=== PATIENT | male | born 1940 | race Caucasian/White ===

== ENCOUNTER 2018-12-10 11:01 | Emergency (ER) | payer MEDICARE, SELFPAY | END 2018-12-10 18:02 | disposition home or self-care (01) | PROVIDERS: Emergency Provider Emergency Medicine; PCP Family Medicine; Visit Provider Emergency Medicine | DX: R42 Dizziness and giddiness (principal); D75.1 Secondary polycythemia; I25.10 Atherosclerotic heart disease of native coronary artery without angina pectoris; G47.30 Sleep apnea, unspecified; Z87.442 Personal history of urinary calculi; I45.10 Unspecified right bundle-branch block; R94.31 Abnormal electrocardiogram [ECG] [EKG] | CPT/HCPCS: 99284; 96361; 96374; 85025; 80162; 36415; 84484; 80053; 81001; 83880; 93005; 70450; J1100; J7120 ×2; A9270 ==

== ENCOUNTER 2019-07-15 08:08 | Emergency (ER) | payer MEDICARE, SELFPAY ==
--- NOTE | ~2019-07-15 | XR_ITS ---
XR hand RT min 3V DATE: 07/15/2019 08:53 INDICATION: Injury to fourth digit TECHNIQUE: 3 views of right hand COMPARISON: None FINDINGS: There is bandage material around the fourth digit. There is evidence of a soft tissue lacer ation. No radiopaque soft tissue foreign body is detected. No fracture, dislocation, periosteal react ion or bone destruction. IMPRESSION: Soft tissue laceration of fourth digit. No fracture, dislocation or radiopaque foreign frantz dy Reviewed, dictated and finalized at location A. IMPRESSION: Soft tissue laceration of fourth digit. No fracture, dislocation or radiopaque foreign body
[2019-07-15 08:10] VITALS: BP 145/59; PULSE 74; RESP 16; TEMP 36.6; O2SAT 99
--- NOTE | 2019-07-15 09:00 | ED.WOUNDLAC ---
HPI - Wound/Laceration General Chief Complaint: Wound/Laceration Stated Complaint: Right Ring Finger Laceration Time Seen by Provider: 07/15/19 08:28 History of Present Illness HPI narrative: Patient is a 79-year-old male who presents the ER after suffering an injury to his right fourth digit. Patient was driving a tractor when a tree branch hit him in the head and he reached his hand up which caused him to split open his finger. Mainly over the radial aspect of the digit goes from the proximal phalanx to the distal phalanx. Range of motion as well as sensation are intact. He cleaned the area prior to arrival. Unknown last tetanus shot. Related Data Home Medications Medication Instructions Recorded Confirmed aspirin 81 mg tablet,delayed 81 mg PO DAILY 12/18/18 release calcium carbonate 500 mg (1,250 1 tablet PO DAILY 12/18/18 mg)-vitamin D3 400 unit tablet Allergies Allergy/AdvReac Type Severity Reaction Status Date / Time No Known Allergies Allergy Unknown Verified 07/15/19 08:33 Review of Systems Review of Systems: All systems reviewed & are unremarkable except as noted in HPI and below Integumentary/Breasts: Comments: Laceration to the right fourth digit. [facility] Past Medical History Medical History (Updated 07/15/19 @ 12:15 by El Perez MD) Coronary artery disease Kidney stones PAT (paroxysmal atrial tachycardia) Surgical History Surgical History (Updated 07/15/19 @ 09:03 by El Perez MD) History of cholecystectomy History of tonsillectomy Family History Family History (Updated 11/09/16 @ 18:30 by DOCTOR UNKNOWN) Sibling Family history of malignant neoplasm Mother Family history of malignant neoplasm Father Family history of lung cancer Other Hypertension Social History Social History Smoking status: Never smoker Alcohol intake: never Exam Narrative: Exam Narrative: GENERAL: Well-appearing, well-nourished, and in no acute distress. HEAD: Normocephalic, atraumatic. HEART: Regular rate and rhythm. Normal peripheral pulses. EXTREMITIES: Focused exam of the right hand reveals lacerations to the fourth digit. There is a palmar laceration that is 7.5 cm in total length that extends from the proximal phalanx up to the distal phalanx. Through and through injury that exits on the volar aspect through a 1.5 cm laceration. Sharp and soft touch intact in the affected digit and when isolating the DIP/PIP/MCP patient has normal strength with flexion extension. There is a 3 cm flap laceration over the volar aspect of the hand is superficial. SKIN: Warm, dry, no rash. Lacerations as noted above. NEURO: No focal deficits. Alert and oriented x3. PSYCH: Normal mood and affect. Course Course Emergency Course: Patient resting comfortably. Informed of x-ray results. ANITA García has sutured the wound. Patient has been updated on his tetanus immunization. Organic debris irrigated from the wounds and copious irrigation was used. Patient will be started on oral antibiotics and has been educated on infection risk and return precautions. Vital Signs Vital signs: Vital Signs Temperature 98 F 07/15/19 08:10 Pulse Rate 74 07/15/19 08:10 Respiratory Rate 16 07/15/19 08:10 Blood Pressure 145/59 H 07/15/19 08:10 Pulse Oximetry 99 07/15/19 08:10 Temperature 98 F 07/15/19 08:10 Pulse Rate 62 07/15/19 10:40 Respiratory Rate 16 07/15/19 10:40 Blood Pressure 141/76 H 07/15/19 10:40 Pulse Oximetry 98 07/15/19 10:40 Procedures Laceration Laceration 1: Date: 07/15/19 Time: 12:00 Site: other (plamar 4th digit right) Size (cm): 7.5 Description: irregular and contaminated (copiously irrigated and free of debris prior to suturing) Depth: [id number] Local Anesthetic: lidocaine 1% Pre-repair: wound explored, irrigated extensiv
[2019-07-15] MEDS: TETANUS,DIPHTHERIA,AC PERTUSSIS ADULT (0.5 ML) BOOSTRIX IM (09:03)
[2019-07-15 10:40] VITALS: BP 141/76; PULSE 62; RESP 16; O2SAT 98
[2019-07-15 12:45] VITALS: BP 150/80; PULSE 62; RESP 16; O2SAT 96
== END 2019-07-15 12:45 | disposition home or self-care (01) ==
PROVIDERS: Emergency Provider Emergency Medicine; PCP Family Medicine
DX: S61.214A Laceration without foreign body of right ring finger without damage to nail, initial encounter (principal); S61.411A Laceration without foreign body of right hand, initial encounter; I25.10 Atherosclerotic heart disease of native coronary artery without angina pectoris; Z87.442 Personal history of urinary calculi; Z23 Encounter for immunization; Z79.82 Long term (current) use of aspirin; W22.8XXA Striking against or struck by other objects, initial encounter
CPT/HCPCS: 12004; 73130; 90471; 90715; 99283

== ENCOUNTER 2019-10-11 09:40 | Inpatient (IN) | payer MEDICARE, SELFPAY ==
[2019-10-11] VITALS (7 sets, daily range): BP systolic 99–156; BP diastolic 56–75; PULSE 86–111; RESP 16–18; TEMP 36.8–39.5; O2SAT 89–98; BMI 30.7
--- NOTE | ~2019-10-11 | XR_ITS ---
EXAMINATION: XR chest 1V portable DATE: 10/11/2019 11:42 INDICATION: Shortness of breath TECHNIQUE: frontal view of the chest was obtained. COMPARISON: Chest radiograph dated 08/09/2013 FINDINGS: Pulmonary vascular congestion with increased interstitial pattern in the lower lung zones suggesting mild pulmonary edema. Calcified nodule in the left upper lung consistent with old granulomatous disea se. No pleural effusion or pneumothorax. Heart size is normal. Cholecystectomy clips in right upper q uadrant. IMPRESSION: 1. Increased interstitial pattern in the bilateral lower lung zones without focal consolidation sugge stive of mild pulmonary edema. Differential includes bronchitis or pneumonia. Reviewed, dictated and finalized at location A. IMPRESSION: 1. Increased interstitial pattern in the bilateral lower lung zones without foc al consolidation suggestive of mild pulmonary edema. Differential includes bron chitis or pneumonia.
--- NOTE | ~2019-10-11 | US_ITS ---
EXAMINATION: US venous doppler [facility] DATE: 10/13/2019 09:31 INDICATION: Left lower limb pain and swelling TECHNIQUE: Grayscale ultrasound images without and with compression and Doppler ultrasound images of the bilateral lower extremity veins were obtained. COMPARISON: None. FINDINGS: The visualized portions of right common femoral vein, profunda (deep) femoral vein, femoral vein, pop liteal vein, posterior tibial veins, peroneal veins, gastrocnemius vein and greater saphenous vein ou tflow are patent. The visualized portions of left common femoral vein, profunda femoral vein, femoral vein, popliteal v ein, posterior tibial veins, peroneal veins, gastrocnemius vein and greater saphenous vein outflow ar e patent. IMPRESSION: 1. No deep venous thrombosis in either lower limb. Reviewed, dictated and finalized at location A.
--- NOTE | ~2019-10-11 | CT_ITS ---
EXAMINATION: CT abdomen pelvis w con DATE: 10/11/2019 11:08 INDICATION: Fever. Nausea and vomiting. TECHNIQUE: Computed tomography (CT) of the abdomen and pelvis was performed with 100 mL Omnipaque 350 intravenous contrast. Automated exposure control and iterative reconstruction technique were employe d. The dose-length product was 665.05 mGy-cm. COMPARISON: CT abdomen and pelvis 03/02/2007 FINDINGS: The visualized portions of the lung bases demonstrate mild atelectasis. No pleural effusion . The heart size is normal. There are coronary artery calcifications. No pericardial effusion. There is a small sliding hiatal hernia. There are cysts in the liver measuring up to 15 mm. There are hutton es of cholecystectomy. The spleen, pancreas, and adrenal glands are normal. There are cysts in the ki dneys measuring up to 19 mm on the left. There is mild diffuse bladder wall thickening, likely second manny to chronic outlet obstruction from the severely enlarged prostate. There is a 16 mm stone in the bladder. There is mild bilateral hydroureter. There are no dilated loops of bowel. The appendix is no rmal. There are no pathologically enlarged lymph nodes. There is no free intraperitoneal fluid. There is moderate lumbar spondylosis. There are bridging endplate osteophytes at multiple levels in the th oracic spine, consistent with diffuse idiopathic skeletal hyperostosis (DISH). IMPRESSION: 1. Small sliding hiatal hernia. 2. Bladder stone. 3. Mild diffuse bladder wall thickening, likely secondary to chronic outlet obstruction from the annamaria rely enlarged prostate. 4. Mild bilateral hydroureter. Reviewed, dictated and finalized at location B. IMPRESSION: 1. Small sliding hiatal hernia. 2. Bladder stone. 3. Mild diffuse bladder wall thickening, likely secondary to chronic outlet obs truction from the severely enlarged prostate. 4. Mild bilateral hydroureter.
--- NOTE | 2019-10-11 10:02 | ED.FEVER ---
HPI - Fever General Chief Complaint: Fever Stated Complaint: fever, n/v Time Seen by Provider: 10/11/19 09:56 Source: RN notes reviewed History of Present Illness HPI Narrative: Patient presents emergency department from home for fever. Patient states symptoms began approximately 730 this morning. He states he developed a low-grade fever that was followed by several episodes of nausea and vomiting. Patient states he does note some mild abdominal cramping at this time. States he took 2 Tylenol this morning shortly after the fever began but believes he threw them up. He denies having any symptoms prior to 730 this morning. States he felt fine last night. He denies any sore throat rhinorrhea cough chest pain shortness of breath or any other symptoms Related Data Home Medications Medication Instructions Recorded Confirmed aspirin 81 mg tablet,delayed 81 mg PO DAILY 12/18/18 09/17/19 release calcium carbonate 500 mg (1,250 1 tablet PO DAILY 12/18/18 09/17/19 mg)-vitamin D3 400 unit tablet Allergies Allergy/AdvReac Type Severity Reaction Status Date / Time No Known Allergies Allergy Unknown Verified 10/11/19 09:49 Review of Systems Review of Systems: Narrative: Gen.: Reports fever ENT: Denies congestion Respiratory: Denies shortness of breath or cough CV: Denies chest pain or palpitations GI: See HPI denies burning, urgency, frequency or hematuria Musculoskeletal: Denies back pain or muscle pain Neuro: Denies numbness, tingling, weakness or focal weakness Skin: Denies rash Except as documented, all other systems reviewed and negative [facility] Past Medical History Medical History Coronary artery disease Kidney stones PAT (paroxysmal atrial tachycardia) UTI (urinary tract infection) Social History Social History Smoking status: Never smoker Alcohol intake: current Substance use: never Substance use type: does not use Gender identity (if verbalized by the patient): Male Exam Narrative: Exam Narrative: APPEARANCE: No acute distress, nontoxic, resting in bed HEENT: Normocephalic, atraumatic, OMM RESPIRATORY: No respiratory distress, clear to auscultation bilaterally with no rhonchi wheezing or rales CARDIOVASCULAR: RRR s murmur ABDOMINAL: Soft, nondistended, diffusely tender to palpation, no rebound or guarding MUSCULOSKELETAl: Moves all extremities. No clubbing, cyanosis or edema. NEURO: Awake and alert. Following commands, speech normal, no focal deficits SKIN:: Warm, dry. Normal Color PSYCHIATRIC: Normal affect/mood Course Course Emergency Course: Patient noted to have mild hypoxia on pulse ox he denies having any coughing or shortness of breath. Of note the patient's fever did increase as well the patient had taken Tylenol at 7:30 AM this morning questionably vomited but will give Toradol at this time as I do not know how much Tylenol the patient actually did ingest Discussed with Dr. Yu presentation work-up he agrees with admission at this time Discussed with patient and family results of workup and diagnosis. Discussed need for admission. Patient and family understand and agree to current treatment plan Vital Signs Vital signs: Vital Signs Temperature 100.2 F H 10/11/19 09:47 Pulse Rate 102 H 10/11/19 09:47 Respiratory Rate 18 10/11/19 09:47 Blood Pressure 153/75 H 10/11/19 09:47 Pulse Oximetry 94 10/11/19 09:47 Temperature 103.1 F H 10/11/19 11:23 Pulse Rate 106 H 10/11/19 12:20 Respiratory Rate 18 10/11/19 12:20 Blood Pressure 156/73 H 10/11/19 12:20 Pulse Oximetry 93 10/11/19 12:20 MDM - Fever Lab Data Result diagrams: 10/11/19 10:16 10/11/19 10:16 Labs: Lab Results 10/11/19 10/11/19 10/11/19 Range/Units 10:16 10:16 10:16 WBC 12.4 H (4.5-10.0) K/mm3 RBC 5.86 (4.6-6.20) M/mm3 Hgb 1
[2019-10-11 10:37] LABS: Basophils Percent Auto 0.2 % (0.2-1.2); Eosinophils Percent Auto 0.2 % (0-4.4); Hematocrit 53.7 % (42.0-52.0); Hemoglobin 18.6 g/dL (14.0-18.0); Immature Granulocyte Absolute 0.06 K/mm3 (0.00-0.031); Immature Granulocyte Percent A 0.5 % (0-0.5); Lymphocytes Absolute Auto 0.25 K/mm3 (0.9-3.2); Mean Corpuscular HGB Conc 34.6 g/dl (32-36); Mean Corpuscular Hemoglobin 31.7 pg (26-34); Mean Corpuscular Volume 91.6 fl (80-100); Mean Platelet Volume 9.7 fl (7.4-10.4); Monocytes Absolute Auto 0.3 K/mm3 (0.1-0.6); Monocytes Percent Auto 2.2 % (2.6-8.5); Neutrophils Absolute Auto 11.8 K/mm3 (1.3-6.7); Neutrophils Percent Auto 94.9 % (45.5-73.1); Platelet Count Result 154 k/mm3 (150-375); Red Blood Count 5.86 M/mm3 (4.6-6.20); Red Cell Distribution Width 13.2 % (11.5-14.5); White Blood Count 12.4 K/mm3 (4.5-10.0)
[2019-10-11] MEDS: SODIUM CHLORIDE 0.9% IV 1,000 ML 999 ML IV CONT (10:40)
[2019-10-11 10:42] LABS: Add Urine Microscopic? YES; Appearance Urine Cloudy (Clear); Bacteria Urine 2+ /hpf; Bilirubin Urine Negative (Negative); Blood Urine Negative (Negative); Color Urine Yellow (Yellow); Glucose Urine UA Negative (Negative); Ketones Urine Negative (Negative); Leukocyte Esterase Ur 2+ LEU/UL (Negative); Mucus Urine Few /lpf; Nitrate Urine Positive (Negative); Protein Urine 2+ mg/dL (Negative); Squamous Epithelial Cell Urine Few /hpf (Few); WBC Clumps Urine Present /HPF; WBC Urine >75 /hpf
[2019-10-11 10:44] LABS: INR 1.1; Prothrombin Time 13.4 Seconds (11.1-14.7)
[2019-10-11 10:45] LABS: Partial Thromboplastin Time 27.4 SECONDS (22.3-36.8)
[2019-10-11 10:47] LABS: Alanine Aminotransferase 26 U/L (4-50); Albumin Level 4.3 g/dL (3.5-5.1); Alkaline Phosphatase 57 U/L (38-126); Anion Gap 7 mmol/L (8-16); Aspartate Amino Transferase 28 U/L (17-59); Bilirubin,Total 0.8 mg/dL (0.2-1.3); Blood Urea Nitrogen 17 mg/dL (9-20); Calcium 8.9 mg/dL (8.4-10.2); Carbon Dioxide 27 mmol/L (22-30); Chloride 100 mmol/L (98-107); Estimated CRCL calculation 65 ml/min; Estimated Glomerular Filt Rate > 60; Glucose 100 mg/dL (75-110); Lipase 45 U/L (23-300); Potassium 4.2 mmol/L (3.4-5.0); Sodium 134 mmol/L (137-145)
[2019-10-11 10:48] LABS: Lactic Acid Reflex 1.9 mmol/L (0.7-2.1)
[2019-10-11] MEDS: KETOROLAC 15 MG/ML VIAL (*BKC) IV PUSH (11:36)
--- NOTE | 2019-10-11 12:40 | PC.NURSE ---
This patient, Blue Kelley, was admitted to Medical Room 348-01. Patient/family oriented to hospital policies and general routines including ID bracelet, bed and alarms, visiting hours, pain management, procedures, bathroom and other care routines, personal items, smoking policy, room service/diet, and visiting hours. Valuables list has been completed. Information on how to activate the Rapid Response Team has been discussed. Patient/Family are encouraged to report perceived risks to care and to ask questions if they do not understand what they are told or what they should do.
[2019-10-11] MEDS: SODIUM CHLORIDE 0.9% IV 1,000 ML 100 ML IV CONT ×2 (12:51→22:02)
--- NOTE | 2019-10-11 16:27 | PM.IMHP ---
H&P: HPI History of Present Illness Date/Time: 10/11/19 16:27 Chief complaint: Sepsis/UTI Narrative: Blue Kelley is a 79 year old male Who has a history of UTIs and enlarged prostate. He sees urology here for his prostate and Urology needs. He sees Dr. Javier. the patient stated that he had a lower back pain this morning and felt that maybe he just slept wrong. He had a low-grade fever followed with nausea and vomiting. He had some abdominal cramping 2 he took some Tylenol shortly after his fever began but then he threw it up. His symptoms started about 730 this morning. The patient has not been around anybody that he is aware of the as COVID. He stated his son and his 2 kids had COVID but he the patient was not around his son and the 2 grandchildren. He has not been around any sick contacts. He does have any urinary symptoms other than a keep back and achy joints. He has fever and chills.The chest x-ray was read by radiology as increased interstitial pattern in the bilateral lower lung zones without consolidation suggestive of mild pulmonary edema. Differential includes bronchitis or pneumonia. Patient was found to have a UTI and was started on Rocephin. CT of the abdomen was read as small sliding hiatal hernia. Bladder stones. Mild diffuse bladder wall thickening, likely secondary to chronic outlet obstruction from the severely enlarged prostate. Bilateral hydro ureter mild. Date of service is 10/05/2019 [facility] Past Medical History Medical History Coronary artery disease Kidney stones PAT (paroxysmal atrial tachycardia) UTI (urinary tract infection) Social History Social History Smoking status: Never smoker Alcohol intake: former Substance use: never Substance use type: does not use Gender identity (if verbalized by the patient): Male Spiritual care concerns: No Meds Home Medications and Allergies Home Medications Medication Instructions Recorded Confirmed Type aspirin 81 mg tablet,delayed 81 mg PO DAILY 12/18/18 10/11/19 History release calcium carbonate 500 mg (1,250 1 tablet PO DAILY 12/18/18 10/11/19 History mg)-vitamin D3 400 unit tablet flecainide 100 mg tablet 100 mg PO Q12H #60 tablet 01/31/19 10/11/19 Rx testosterone cypionate 200 mg/mL 300 mg IM .bi weekly #10 ml 08/30/19 10/11/19 Rx intramuscular oil finasteride 5 mg tablet 5 mg PO DAILY #90 tablet 09/26/19 10/11/19 Rx Allergies Allergy/AdvReac Type Severity Reaction Status Date / Time No Known Allergies Allergy Unknown Verified 10/11/19 09:49 Vital Signs Vital Signs - 24 hr 10/11/19 09:47 10/11/19 11:23 10/11/19 12:20 Temperature 37.9 C H 39.5 C H Pulse Rate 102 H 104 H 106 H Respiratory Rate 18 18 18 Blood Pressure 153/75 H 156/73 H 156/73 H Pulse Oximetry 94 89 L 93 10/11/19 12:56 10/11/19 14:19 Temperature 37.6 C H 36.8 C Pulse Rate 111 H Respiratory Rate 16 Blood Pressure 99/64 L 113/57 L Pulse Oximetry 96 H&P: Results Labs Labs: Short CBC 10/11/19 Range/Units 10:16 WBC 12.4 H (4.5-10.0) K/mm3 Hgb 18.6 H (14.0-18.0) g/dL Hct 53.7 H (42.0-52.0) % Plt Count 154 (150-375) k/mm3 BMP 10/11/19 10:16 Sodium 134 L Potassium 4.2 Chloride 100 Carbon Dioxide 27 BUN 17 Creatinine 1.00 Glucose 100 Calcium 8.9 Liver Function 10/11/19 Range/Units 10:16 Total Bilirubin 0.8 (0.2-1.3) mg/dL AST 28 (17-59) U/L ALT 26 (4-50) U/L Alkaline Phosphatase 57 (38-126) U/L Albumin 4.3 (3.5-5.1) g/dL Urine 10/11/19 Range/Units 10:16 Urine Color Yellow (Yellow) Urine Appearance Cloudy H (Clear) Urine pH 8.0 (5.0-9.0) Ur Specific Maddock 1.020 (1.001-1.035) Urine Protein 2+ H (Negative) mg/dL Urine Glucose (UA) Negative (Negative) mg/dL
--- NOTE | 2019-10-11 16:37 | PM.IMHP ---
H&P: HPI History of Present Illness Date/Time: 10/11/19 16:37 Chief complaint: Sepsis/UTI Narrative: Narrative: Blue Kelley is a 79 year old male Who has a history of UTIs and enlarged prostate. He sees urology here for his prostate and Urology needs. He sees Dr. Javier. the patient stated that he had a lower back pain this morning and felt that maybe he just slept wrong. He had a low-grade fever followed with nausea and vomiting. He had some abdominal cramping 2 he took some Tylenol shortly after his fever began but then he threw it up. His symptoms started about 730 this morning. The patient has not been around anybody that he is aware of the as COVID. He stated his son and his 2 kids had COVID but he the patient was not around his son and the 2 grandchildren. He has not been around any sick contacts. He does have any urinary symptoms other than a keep back and achy joints. He has fever and chills.The chest x-ray was read by radiology as increased interstitial pattern in the bilateral lower lung zones without consolidation suggestive of mild pulmonary edema. Differential includes bronchitis or pneumonia. Patient was found to have a UTI and was started on Rocephin. CT of the abdomen was read as small sliding hiatal hernia. Bladder stones. Mild diffuse bladder wall thickening, likely secondary to chronic outlet obstruction from the severely enlarged prostate. Bilateral hydro ureter mild. Date of service is 10/05/2019 Review of Systems Review of Systems: All systems reviewed & are unremarkable except as noted in HPI and below Constitutional: Constitutional: Reports as per HPI and Reports no additional constitutional complaints Eyes: Eyes: Reports as per HPI and Reports no additional eye complaints ENT: Reports system reviewed and no additional complaints, except as documented and Reports Normal hearing present Cardiovascular: Cardiovascular: Reports no additional cardiovascular complaints Respiratory: Respiratory: Reports no additional respiratory complaints and Reports no additional respiratory complaints Gastrointestinal: Gastrointestinal: Reports as per HPI and Reports no additional gastrointestinal complaints Musculoskeletal: Musculoskeletal: Reports no additional musculoskeletal complaints Integumentary/Breasts: Skin/Breast: Reports system reviewed and no additional complaints, except as docu and Reports as per HPI Neurologic: Reports system reviewed and no additional complaints, except as documented, Reports as per HPI and Reports Normal hearing present Psychiatric: Psychiatric: Reports no additional psychiatric complaints and Reports as per HPI Endocrine: Endocrine: Reports no additional endocrine complaints Hematologic/Lymphatic: Hematologic/Lymphatic: Reports no additional hematologic/lymphatic complaints Allergic/Immunologic: Allergic/Immunologic: Reports no additional allergic/immunologic complaints [facility] Past Medical History Medical History (Updated 10/11/19 @ 16:40 by Emelina Velasquez NP) BPH (benign prostatic hyperplasia) Kidney stones PAT (paroxysmal atrial tachycardia) UTI (urinary tract infection) Surgical History Surgical History (Updated 10/11/19 @ 16:40 by Emelina Velasquez NP) History of arthroscopic knee surgery History of cholecystectomy History of removal of pigmented skin lesion multiple sites History of tonsillectomy Family History Family History Sibling Family history of malignant neoplasm Mother Family history of malignant neoplasm Father Family history of lung cancer Other Hypertension Social History Social History (Updated 10/11/19 @ 16:42 by Emelina Velsaquez NP) Social History: the patient lives with his . She is a durable power assistant district attorney for healthcare. The patient desires to be a full code. 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
[2019-10-11] MEDS: FLECAINIDE ACETATE 100 MG TABLET PO (22:02)
[2019-10-11] MEDS: FAMOTIDINE 20 MG TABLET PO (22:02)
[2019-10-12] VITALS (8 sets, daily range): BP systolic 114–145; BP diastolic 46–62; PULSE 74–85; RESP 16–18; TEMP 36.6–37.3; O2SAT 95–100
[2019-10-12 06:19] LABS: Basophils Percent Auto 0.1 % (0.2-1.2); Eosinophils Percent Auto 0.1 % (0-4.4); Hematocrit 45.9 % (42.0-52.0); Hemoglobin 15.8 g/dL (14.0-18.0); Immature Granulocyte Absolute 0.12 K/mm3 (0.00-0.031); Immature Granulocyte Percent A 0.6 % (0-0.5); Lymphocytes Absolute Auto 0.87 K/mm3 (0.9-3.2); Lymphocytes Percent Auto 4.4 % (18.3-44.2); Mean Corpuscular HGB Conc 34.4 g/dl (32-36); Mean Corpuscular Hemoglobin 31.9 pg (26-34); Mean Corpuscular Volume 92.7 fl (80-100); Mean Platelet Volume 9.6 fl (7.4-10.4); Monocytes Absolute Auto 1.3 K/mm3 (0.1-0.6); Monocytes Percent Auto 6.6 % (2.6-8.5); Neutrophils Absolute Auto 17.5 K/mm3 (1.3-6.7); Neutrophils Percent Auto 88.2 % (45.5-73.1); Platelet Count Result 146 k/mm3 (150-375); Red Blood Count 4.95 M/mm3 (4.6-6.20); Red Cell Distribution Width 13.6 % (11.5-14.5); White Blood Count 19.8 K/mm3 (4.5-10.0)
[2019-10-12 06:34] LABS: Lactic Acid Reflex 0.9 mmol/L (0.7-2.1)
[2019-10-12 06:54] LABS: Alanine Aminotransferase 19 U/L (4-50); Albumin Level 3.1 g/dL (3.5-5.1); Alkaline Phosphatase 43 U/L (38-126); Anion Gap 5 mmol/L (8-16); Aspartate Amino Transferase 20 U/L (17-59); Bilirubin,Total 0.7 mg/dL (0.2-1.3); Blood Urea Nitrogen 25 mg/dL (9-20); CRP 13.2 mg/dL (<1.0); Calcium 7.9 mg/dL (8.4-10.2); Carbon Dioxide 28 mmol/L (22-30); Chloride 103 mmol/L (98-107); Estimated CRCL calculation 55 ml/min; Estimated Glomerular Filt Rate 59; Glucose 98 mg/dL (75-110); Lactate Dehydrogenase 400 U/L (313-618); Potassium 4.4 mmol/L (3.4-5.0); Sodium 136 mmol/L (137-145)
[2019-10-12 07:29] LABS: Thyroid Stimulating Hormone Reflex 0.494 uIU/mL (0.465-4.68)
[2019-10-12] MEDS: SODIUM CHLORIDE 0.9% IV 1,000 ML 100 ML IV CONT ×2 (09:48→20:50)
[2019-10-12] MEDS: ASPIRIN 81 MG ENTERIC TABLET PO (09:51)
[2019-10-12] MEDS: FINASTERIDE 5 MG TABLET PO (09:51)
[2019-10-12] MEDS: FLECAINIDE ACETATE 100 MG TABLET PO ×2 (09:52→21:10)
[2019-10-12] MEDS: FAMOTIDINE 20 MG TABLET PO ×2 (09:56→21:11)
--- NOTE | 2019-10-12 12:52 | WPDURCON ---
Assessment and Plan Assessment and plan (1) BPH (benign prostatic hyperplasia): Code(s): N40.0 - Benign prostatic hyperplasia without lower urinary tract symptoms Status: Chronic (2) UTI (urinary tract infection): Code(s): N39.0 - Urinary tract infection, site not specified Status: Acute (3) Bladder stone: Code(s): N21.0 - Calculus in bladder Status: Acute Additional Plan 1- Continue Rocephin for now 2- Await culture results tomorrow morning Urology Consult Note HPI Date Seen: 10/12/19 Requesting Physician: Ilene Land PA-C Primary Care Provider: Jamel Patel MD Consult Narrative Narrative: Blue Kelley is a 79 year old male admitted yesterday due to fevers and chills at home. CXR did not note pneumonia. CT abd/pelvis noted mild bilateral hydro, large prostate and a bladder stone. Patient denies issues with frequency, dysuria or hematuria. He had hematuria/uti in 06/2019 which was treated by Dr Israel with Bactrim apparently. WBC on admission was 12 but today went to 19. Patient feels good today and would like to go home. He is on Testosterone and Finasteride thru Dr Israel. Urine culture still pending. Blood cultures x2 no growth for 24 hours. Review of Systems Review of Systems: All systems reviewed & are unremarkable except as noted in HPI and below (as per HPI) [facility] Past Medical History Medical History (Updated 10/12/19 @ 12:56 by Matt Mcfadden MD) BPH (benign prostatic hyperplasia) Kidney stones PAT (paroxysmal atrial tachycardia) UTI (urinary tract infection) Surgical History Surgical History (Updated 10/11/19 @ 16:40 by Emelina Velasquez NP) History of arthroscopic knee surgery History of cholecystectomy History of removal of pigmented skin lesion multiple sites History of tonsillectomy Family History Family History Sibling Family history of malignant neoplasm Mother Family history of malignant neoplasm Father Family history of lung cancer Other Hypertension Social History Social History (Updated 10/11/19 @ 16:42 by Emelina Velasquez NP) Social History: the patient lives with his . She is a durable power title attorney for healthcare. The patient desires to be a full code. 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 Lifelong nonsmoker. He does not use any illicit drugs, marijuana or alcohol. He has 3 children Alcohol intake: former Substance use: never Substance use type: does not use Gender identity (if verbalized by the patient): Male Spiritual care concerns: No Meds Home Medications and Allergies Home Medications Medication Instructions Recorded Confirmed Type aspirin 81 mg tablet,delayed 81 mg PO DAILY 12/18/18 10/11/19 History release calcium carbonate 500 mg (1,250 1 tablet PO DAILY 12/18/18 10/11/19 History mg)-vitamin D3 400 unit tablet flecainide 100 mg tablet 100 mg PO Q12H #60 tablet 01/31/19 10/11/19 Rx testosterone cypionate 200 mg/mL 300 mg IM .bi weekly #10 ml 08/30/19 10/11/19 Rx intramuscular oil finasteride 5 mg tablet 5 mg PO DAILY #90 tablet 09/26/19 10/11/19 Rx Allergies Allergy/AdvReac Type Severity Reaction Status Date / Time No Known Allergies Allergy Unknown Verified 10/11/19 09:49 Vital Signs Vital Signs - 24 hr 10/11/19 12:56 10/11/19 14:19 10/11/19 21:08 Temperature 37.6 C H 36.8 C 37.1 C Pulse Rate 111 H 86 Respiratory Rate 16 16 Blood Pressure 99/64 L 113/57 L 117/56 L Pulse Oximetry 96 98 10/11/19 22:13 10/12/19 04:38 10/12/19 05:03 Temperature 36.8 C Pulse Rate 89 74 77 Respiratory Rate 16 Blood Pressure 114/46 L Pulse Oximetry 97 95 95 10/12/19 09:52 Temperature Pulse Rate 77 Respiratory Rate Blood Pressure Pulse Oximetry Exam Narrative: Exam Narrative: NAD NCAT Breathing unla
--- NOTE | 2019-10-12 14:51 | PM.IMPN ---
Progress Note: A&P Assessment and Plan (1) UTI (urinary tract infection): Code(s): N39.0 - Urinary tract infection, site not specified Status: Acute Assessment and Plan: UA was highly suspicious for UTI. He has a hx of UTI as well as BPH. CT abd/pelvis showed mild diffuse bladder wall thickening, likely secondary to chronic outlet obstruction from prostate enlargement. Urology is on board and input is greatly appreciated. Continue empiric IV ceftriaxone for now. Preliminary urine culture reveals >100,000CFU/mL of E. coli. Sensitivities are pending. Blood cultures reveal NGTD. Await final cultures and adjust antibiotics if indicated based on culture results. (2) BPH (benign prostatic hyperplasia): Code(s): N40.0 - Benign prostatic hyperplasia without lower urinary tract symptoms Status: Chronic Assessment and Plan: Symptoms are well-controlled and he had no urinary retention on bladder scan. Continue finasteride. Urology is on board and input is appreciated. (3) PAT (paroxysmal atrial tachycardia): Code(s): I47.1 - Supraventricular tachycardia Status: Chronic Assessment and Plan: Chronic. Continue flecainide. (4) GERD (gastroesophageal reflux disease): Code(s): K21.9 - Gastro-esophageal reflux disease without esophagitis Status: Acute Assessment and Plan: Chronic with no acute issues. Continue pepcid. Additional Plan He reports occasional pain and swelling of the RLE. Order venous doppler US to r/o DVT. Subjective Date/time seen: 10/12/19 14:51 Interval history: Mr. Kelley is a 79 y.o. male with BPH who is seen in follow-up for urinary tract infection. He is feeling much better today. He denies fever and chills. He denies dysuria, hesistancy, urgency, or frequency. He denies chest pain, shortness of breath, dyspnea, and cough. He denies headaches, lightheadedness, and dizziness. He denies nausea and vomiting. He denies diarrhea and constipation. He denies malaise and weakness. Review of Systems Review of Systems: All systems reviewed & are unremarkable except as noted in HPI and below Exam Narrative: Exam Narrative: General: Very pleasant, well-developed, and well-nourished 79 y.o. male, appears younger than stated age, sitting in the chair at the bedside watching TV in no acute distress. HEENT: Normocephalic and atraumatic. Sclerae anicteric. Conjunctivae and lids normal. EOMI. Corrective lenses in place. Oral mucosa moist. Neck: Supple without lymphadenopathy or masses. Cardiac: Regular rate and rhythm. S1 and S2 normal. Lungs: Lungs clear to auscultation bilaterally. Abdomen: Normoactive bowel sounds. Abdomen soft, non-distended, and non-tender. : No CVA tenderness. Extremities: No significant lower extremity edema. Giovanni sign negative. Pedal pulses 2+. Neurological: Alert. Exam is non-focal to casual conversation. Speech is clear. Skin: Warm and dry. No lesions or eruptions to limited exam. Psychiatric: Judgment and insight intact. Very pleasant mood and appropriate affect. Objective Data Vital Signs Vital Signs: Vital Signs - 24 hr 10/11/19 21:08 10/11/19 22:13 10/12/19 04:38 Temperature 98.8 F 98.3 F Pulse Rate 86 89 74 Respiratory Rate 16 16 Blood Pressure 117/56 L 114/46 L Pulse Oximetry 98 97 95 10/12/19 05:03 10/12/19 09:52 10/12/19 14:00 Temperature 97.9 F Pulse Rate 77 77 76 Respiratory Rate 18 Blood Pressure 118/59 L Pulse Oximetry 95 98 Intake/Output Intake/Output: Intake & Output 10/09/19 10/10/19 10/11/19 10/12/19 23:59 23:59 23:59 23:59 Intake Total 2050 1830 Output Total 75 450 Balance 1975 1380 Meds/Results Medications: Active Medications Generic Name Dose Route Start Last Admin Trade Name Freq PRN Reason Stop Dose Admin Aspirin 81 mg 10/12/19 09:00 10/12/19 09:51 Aspirin Ec PO 81 mg DAILY SARINA Administration Calcium Carbonate 500
[2019-10-12] MEDS: ENOXAPARIN 40 MG/0.4 ML SYRINGE SUB-Q (21:11)
[2019-10-13 03:00] VITALS: PULSE 73; O2SAT 97
[2019-10-13 04:34] VITALS: BP 164/70; PULSE 80; RESP 18; TEMP 36.6; O2SAT 97
[2019-10-13 06:17] LABS: Basophils Percent Auto 0.1 % (0.2-1.2); Eosinophils Percent Auto 0.2 % (0-4.4); Hematocrit 46.1 % (42.0-52.0); Hemoglobin 15.8 g/dL (14.0-18.0); Immature Granulocyte Absolute 0.04 K/mm3 (0.00-0.031); Immature Granulocyte Percent A 0.3 % (0-0.5); Lymphocytes Absolute Auto 0.59 K/mm3 (0.9-3.2); Lymphocytes Percent Auto 4.8 % (18.3-44.2); Mean Corpuscular HGB Conc 34.3 g/dl (32-36); Mean Corpuscular Hemoglobin 31.7 pg (26-34); Mean Corpuscular Volume 92.4 fl (80-100); Mean Platelet Volume 9.7 fl (7.4-10.4); Monocytes Absolute Auto 0.8 K/mm3 (0.1-0.6); Monocytes Percent Auto 6.5 % (2.6-8.5); Neutrophils Absolute Auto 10.9 K/mm3 (1.3-6.7); Neutrophils Percent Auto 88.1 % (45.5-73.1); Platelet Count Result 140 k/mm3 (150-375); Red Blood Count 4.99 M/mm3 (4.6-6.20); Red Cell Distribution Width 13.4 % (11.5-14.5); White Blood Count 12.4 K/mm3 (4.5-10.0)
[2019-10-13 06:44] LABS: Anion Gap 5 mmol/L (8-16); Blood Urea Nitrogen 17 mg/dL (9-20); CRP 11.6 mg/dL (<1.0); Calcium 8.1 mg/dL (8.4-10.2); Carbon Dioxide 25 mmol/L (22-30); Chloride 107 mmol/L (98-107); Estimated CRCL calculation 59 ml/min; Estimated Glomerular Filt Rate > 60; Glucose 98 mg/dL (75-110); Potassium 4.4 mmol/L (3.4-5.0); Sodium 137 mmol/L (137-145)
[2019-10-13] MEDS: SODIUM CHLORIDE 0.9% IV 1,000 ML 100 ML IV CONT (07:08)
[2019-10-13 09:15] VITALS: PULSE 80
[2019-10-13] MEDS: FINASTERIDE 5 MG TABLET PO (09:15)
[2019-10-13] MEDS: FLECAINIDE ACETATE 100 MG TABLET PO (09:15)
[2019-10-13] MEDS: FAMOTIDINE 20 MG TABLET PO (09:16)
[2019-10-13] MEDS: ASPIRIN 81 MG ENTERIC TABLET PO (09:16)
--- NOTE | 2019-10-13 13:17 | WPDUROPN2 ---
Progress Note: A&P Assessment and Plan (1) Bladder stone: Code(s): N21.0 - Calculus in bladder Status: Acute (2) Acute UTI: Code(s): N39.0 - Urinary tract infection, site not specified Status: Acute (3) BPH (benign prostatic hyperplasia): Code(s): N40.0 - Benign prostatic hyperplasia without lower urinary tract symptoms Status: Chronic Additional Plan 1) May discharge home with a medina for the next 2 weeks 2) Stone could be source of voiding difficulty along with UTIs 3) Will need Augmentin for 2 weeks Subjective Subjective Date/Time Seen: 10/13/19 13:17 Patient feels good. Had medina placed earlier today due to voiding issues. Urine culture grew E coli sensitive to Augmentin. Blood cultures x2 negative. WBC improved from 19 to 12. Exam Narrative: Exam Narrative: NAD NCAT Breathing unlabored Abdomen soft nt nd indwelling medina with clear yellow urine Objective Data Vital Signs Vital Signs: Vital Signs - 24 hr 10/12/19 14:00 10/12/19 15:13 10/12/19 21:08 Temperature 36.6 C 36.8 C 37.3 C Pulse Rate 76 76 85 Respiratory Rate 18 18 16 Blood Pressure 118/59 L 115/62 145/60 H Pulse Oximetry 98 100 95 10/12/19 21:10 10/12/19 23:25 10/13/19 03:00 Temperature Pulse Rate 76 76 73 Respiratory Rate Blood Pressure Pulse Oximetry 97 97 10/13/19 04:34 10/13/19 09:15 Temperature 36.6 C Pulse Rate 80 80 Respiratory Rate 18 Blood Pressure 164/70 H Pulse Oximetry 97 Intake/Output Intake/Output: Intake & Output 10/10/19 10/11/19 10/12/19 10/13/19 23:59 23:59 23:59 23:59 Intake Total 2049 3670 1980 Output Total 75 1850 2350 Balance 1975 1820 -370 Meds/Results Medications: Active Medications Generic Name Dose Route Start Last Admin Trade Name Freq PRN Reason Stop Dose Admin Aspirin 81 mg 10/12/19 09:00 10/13/19 09:16 Aspirin Ec PO 81 mg DAILY SARINA Administration Calcium Carbonate 500 mg 10/12/19 09:00 10/13/19 09:15 Os-Mustapha 500 +D Tablet PO 500 mg DAILY SARINA Administration Enoxaparin Sodium 40 mg 10/12/19 21:00 10/12/19 21:11 Lovenox SUB-Q 40 mg HS SARINA Administration Famotidine 20 mg 10/11/19 21:00 10/13/19 09:16 Pepcid PO 20 mg Q12HR SARINA Administration Finasteride 5 mg 10/12/19 09:00 10/13/19 09:15 Proscar PO 5 mg DAILY SARINA Administration Flecainide Acetate 100 mg 10/11/19 21:00 10/13/19 09:15 Tambocor PO 100 mg Q12H SARINA Administration Sodium Chloride 1,000 mls @ 100 mls/hr 10/11/19 11:50 10/13/19 07:08 Normal Saline Iv IV CONT 100 mls/hr .Q10H SARINA Administration Ceftriaxone Sodium/Dextrose 1 gm in 50 mls @ 100 mls/hr 10/12/19 12:00 10/13/19 11:33 Rocephin 1 Gm/D5w 50 Ml IVPB Infused Q24H SARINA Infusion Ondansetron HCl 4 mg 10/11/19 11:49 Zofran Inj IV PUSH Q4H PRN Nausea Radiology Results: ITS Impressions Abdomen/Pelvis CT 10/11/19 11:22 IMPRESSION: 1. Small sliding hiatal hernia. 2. Bladder stone. 3. Mild diffuse bladder wall thickening, likely secondary to chronic outlet obstruction from the severely enlarged prostate. 4. Mild bilateral hydroureter. Chest X-Ray 10/11/19 11:44 IMPRESSION: 1. Increased interstitial pattern in the bilateral lower lung zones without focal consolidation suggestive of mild pulmonary edema. Differential includes bronchitis or pneumonia. Venous Doppler Study 10/13/19 11:09 IMPRESSION: 1. No deep venous thrombosis in either lower limb. Labs Labs: Laboratory Results - last 24 hr 10/13/19 10/13/19 05:45 05:45 WBC 12.4 H RBC 4.99 Hgb 15.8 Hct 46.1 MCV 92.4 MCH 31.7 MCHC 34.3 RDW 13.4 Plt Count 140 L MPV 9.7 Immature Gran % (Auto) 0.3 Neut % (Auto) 88.1 H Lymph % (Auto) 4.8 L Mccormick % (Auto) 6.5 Eos % (Auto) 0.2 Baso % (Auto) 0.1 L Lymph # (Auto) 0.59 L Mccormick # (Auto) 0.8 H Eos # (Auto) 0.0 Baso # (Auto) 0.0 Abs
[2019-10-13 14:29] VITALS: BP 128/72; PULSE 82; RESP 18; TEMP 36.7; O2SAT 100
--- NOTE | 2019-10-13 15:16 | PM.DS ---
DS: Admitting Diagnosis Admitting Diagnosis Admitting Diagnosis: Sepsis/UTI DS: Discharge Diagnosis Discharge Diagnosis (1) UTI (urinary tract infection): Code(s): N39.0 - Urinary tract infection, site not specified Status: Acute Assessment and Plan: Discharge Summary (Date of service 10/13/19): Mr. Kelley is a 79 y.o. male with PMH significant for benign prostatic hyperplasia, nephrolithiasis, paroxysmal atrial tachycardia, and UTI who presented to the emergency department for the evaluation of fever, low back pain, nausea, mild abdominal pain, and vomiting. Initial workup in the emergency department was notable for grossly abnormal urinalysis, suspicious for UTI. CT abd/pelvis demonstrated mild diffuse bladder wall thickening, severely enlarged prostate, small sliding hiatal hernia, bladder stone, and mild bilateral hydroureter. He met SIRS criteria with tachycardia, leukocytosis, fever. Urology was consulted and he was admitted to the hospitalist service. He was treated empirically with IV ceftriaxone for UTI. Final urine culture demonstrated >100,000CFU/mL of E. coli. Fevers resolved and leukocytosis improved. He developed urinary retention the evening of 10/11 so a medina was placed. Urology recommended he keep medina in place for 2 weeks. He was cleared for discharge from a urology standpoint. Urology recommended PO augmentin for 2 weeks. He was advised to follow-up with urology outpatient. He requested to go home. He was discharged in stable condition on the afternoon of 10/13/19. (2) BPH (benign prostatic hyperplasia): Code(s): N40.0 - Benign prostatic hyperplasia without lower urinary tract symptoms Status: Chronic Assessment and Plan: Symptoms are well-controlled. Finasteride was continued. He developed urinary retention the night of 10/11 so a medina was placed and urology instructed him to follow-up in the office within 2 weeks for voiding trial. (3) PAT (paroxysmal atrial tachycardia): Code(s): I47.1 - Supraventricular tachycardia Status: Chronic Assessment and Plan: Chronic. Flecainide was continued. (4) GERD (gastroesophageal reflux disease): Code(s): K21.9 - Gastro-esophageal reflux disease without esophagitis Status: Acute Assessment and Plan: Chronic with no acute issues. Pepcid was continued. (5) Sepsis: Code(s): A41.9 - Sepsis, unspecified organism Status: Acute Assessment and Plan: SIRS was met at presentation to the emergency department with tachycardia, leukocytosis and fever. UTI was the suspected source. Blood cultures were negative. DS: Summary Hospital Course Reason for hospitalization: Low back pain, low grade fever, nausea, vomiting, abdominal pain Hospital Course: As above. Status at Discharge Functional status at discharge: independent ambulation Overall status at discharge: patient is back to baseline Time Spent with Patient Time attestation: Total time spent providing and/or coordinating discharge services: 35 minutes Exam Narrative: Exam Narrative: Vitals at presentation: Temp Pulse Resp BP Pulse Ox 100.2 F H 102 H 18 153/75 H 94 10/11/19 09:47 10/11/19 09:47 10/11/19 09:47 10/11/19 09:47 10/11/19 09:47 Vitals at discharge: Temp Pulse Resp BP Pulse Ox 98.0 F 82 18 128/72 100 10/13/19 14:29 10/13/19 14:29 10/13/19 14:29 10/13/19 14:29 10/13/19 14:29 General: Pleasant, cooperative, well-developed 79 y.o. male sitting in the chair at the bedside in no acute distress. HEENT: Normocephalic and atraumatic.Oral mucosa moist. Neck: Supple without lymphadenopathy or masses. Cardiac: Regular rate and rhythm. S1
== END 2019-10-13 15:40 | disposition home or self-care (01) | DRG 690 ==
LOC: ANHED 10:25 → ANH3MED 12:25
PROVIDERS: Nurse Practitioner; Admitting Provider Family Medicine; Emergency Provider Emergency Medicine; PCP Family Medicine; Visit Provider Physician Assistant
DX: N39.0 Urinary tract infection, site not specified (principal); I47.1 Supraventricular tachycardia; N13.8 Other obstructive and reflux uropathy; N21.0 Calculus in bladder; B96.20 Unspecified Escherichia coli [E. coli] as the cause of diseases classified elsewhere; N40.0 Benign prostatic hyperplasia without lower urinary tract symptoms; K21.9 Gastro-esophageal reflux disease without esophagitis; I25.10 Atherosclerotic heart disease of native coronary artery without angina pectoris; Z90.49 Acquired absence of other specified parts of digestive tract
CPT/HCPCS: 36415; 71045; 74177; 80048; 80053; 81001; 83605; 83615; 83690; 83735; 84443; 85025; 85610; 85730; 86140; 87040; 87077; 87086; 87088; 87186; 93970; 96361; 96365; 96375; 99285; A9270; J0696; J1650; J1885; J7030; Q9967

== ENCOUNTER 2019-10-19 08:21 | Outpatient (CLI) | payer MEDICARE, SELFPAY | END 2019-10-19 08:22 | disposition home or self-care (01) | PROVIDERS: PCP Family Medicine; Visit Provider Urology | DX: N21.0 Calculus in bladder (principal) | CPT/HCPCS: 87086 ==

== ENCOUNTER 2019-10-23 01:39 | Outpatient (CLI) | payer MEDICARE, SELFPAY ==
[2019-10-23 19:20] LABS: SARS-CoV-2 RNA PCR Negative
== END 2019-10-23 01:40 | disposition home or self-care (01) ==
LOC: ANHCOVIDDT 01:40
PROVIDERS: PCP Family Medicine; Visit Provider Urology
DX: Z01.812 Encounter for preprocedural laboratory examination (principal); Z20.828 Contact with and (suspected) exposure to other viral communicable diseases
CPT/HCPCS: 87635; C9803; U0003

== ENCOUNTER 2019-10-25 01:28 | Day surgery (SDC) | payer MEDICARE, SELFPAY ==
[2019-10-18 10:58] VITALS: BMI 30.7
[2019-10-25] VITALS (7 sets, daily range): BP systolic 115–159; BP diastolic 54–77; PULSE 61–75; RESP 12–17; TEMP 36.6–36.8; O2SAT 97–99
--- NOTE | 2019-10-25 07:07 | WPDHPUPDATE1 ---
History and Physical Update Update Date/Time: 10/25/19 07:07 History and Physical has been reviewed, including an updated exam of the patient. There are NO changes in the patient's condition. Risks, benefits, and alternatives have been discussed and questions answered. Patient agrees to proceed with procedure.
--- NOTE | 2019-10-25 11:41 | WPDANESEPPF ---
Anes - Initial Pre Proc Eval Procedure: Operation Date: 10/25/19 13:30 Proposed Procedures s Holmium Laser Procedure - Chapin Israel MD p Cystoscopy With Bladder Stone Extraction - Chapin Israel MD Date/Time: 10/25/19 11:41 Surgeon: Chapin Israel MD Pre Op Diagnosis: Bladder Stone Patient Data Age: 79 Gender: M Height: 1.8 m Weight: 99.79 kg Allergies Allergy/AdvReac Type Severity Reaction Status Date / Time No Known Allergies Allergy Unknown Verified 10/18/19 10:59 Home Medications Medication Instructions Recorded Confirmed Type aspirin 81 mg tablet,delayed 81 mg PO DAILY 12/18/18 10/18/19 History release calcium carbonate 500 mg (1,250 1 tablet PO DAILY 12/18/18 10/18/19 History mg)-vitamin D3 400 unit tablet flecainide 100 mg tablet 100 mg PO Q12H #60 tablet 01/31/19 10/18/19 Rx finasteride 5 mg tablet 5 mg PO DAILY #90 tablet 09/26/19 10/18/19 Rx amoxicillin-pot clavulanate 1 tablet PO Q12H 14 Days #28 tablet 10/13/19 10/18/19 Rx [Augmentin] loperamide [Imodium A-D] 2 mg PO QID PRN 10/18/19 10/18/19 History tamsulosin 0.4 mg PO DAILY 10/18/19 10/18/19 History testosterone cypionate 300 mg IM .Q2WEEK 10/18/19 10/18/19 History Patient hx anesthesia problems: none Family hx anesthesia problems: none PMFSH Past Medical History Medical History (Updated 10/25/19 @ 11:43 by Vincent Noyola MD) Bladder stone BPH (benign prostatic hyperplasia) GERD (gastroesophageal reflux disease) Kidney stones Obesity PAT (paroxysmal atrial tachycardia) Peripheral polyneuropathy UTI (urinary tract infection) Surgical History Surgical History (Updated 10/11/19 @ 16:40 by Emelina Velasquez NP) History of arthroscopic knee surgery History of cholecystectomy History of removal of pigmented skin lesion multiple sites History of tonsillectomy Social History Social History (Updated 10/11/19 @ 16:42 by Emelina Velasquez NP) Social History: the patient lives with his . She is a durable power estate attorney for healthcare. The patient desires to be a full code. 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 Lifelong nonsmoker. He does not use any illicit drugs, marijuana or alcohol. He has 3 children Smoking status: Never smoker Alcohol intake: former Substance use: never Substance use type: does not use Gender identity (if verbalized by the patient): Male Spiritual care concerns: No Anes - Eval Final PreProcedure Day of Procedure 10/25/19 11:41 Patient weight: obese Heart: regular rate and rhythm Lungs: clear to auscultation and normal air movement Airway: Mallampati scale class II Neurological: alert and oriented Last oral intake: >/= 8 hours ASA classification: III Emergent: no Anesthetic plan: proceed Anesthesia type and monitoring: general LMA Informed Consent: The patient's anesthetic plan and its attendant risks and benefits were discussed with the patient/family/POA. Questions were solicited and answers provided to the satisfaction of the patient/family/POA.
[2019-10-25] MEDS: LACTATED RINGERS 1,000 ML 30 ML IV CONT ×2 (12:25→14:44)
[2019-10-25] MEDS: ceFAZolin 2 GM/D5W 50 ML 2 GM/50 ML BAG IVPB (13:55)
[2019-10-25] MEDS: LIDOCAINE HCL 2% GEL UROJET 10 ML PKG MUCOUS MEM (14:16)
--- NOTE | 2019-10-25 14:41 | PM.PROC ---
Procedure Note - Detailed Date of procedure: 10/25/19 Pre-op diagnosis: Bladder Stone Post-op diagnosis: same Procedure performed: Cystoscopy, laser lithotripsy with extraction of bladder stone. Description of procedure: The patient is brought to the operative suite where he was prepped and draped in a routine sterile fashion while in the dorsal lithotomy position after the uneventful induction of a general anesthetic. A 21F rigid cystoscope was placed in his bladder. He has no urethral strictures but moderate prostatic hyperplasia. He has a [no/small/moderate/large] median lobe enlargement with an estimated prostatic urethral length of approximately 2.5cm. He has a single bladder calculusi measuring approximately 2.5cm each . Using a 1000 micron holmium laser fiber laser these stones are fractured into smaller particles. The particles are evacuated throughthe cystoscope sheath using a Sproutling evacuator . There was minimimal, if any, ureteral/bladder bleeding at the end of the procedure and I opted not to replace a catheter.. The patient was taken to the recovery room having tolerated the procedure well. Anesthesia: GLMA Surgeon: Chapin Israel MD Estimated blood loss (mL): 0 Drains: No Packing: No Pathology: yes (Bladder stones) Complications: No immediate complications Condition: stable Disposition: PACU
--- NOTE | 2019-10-25 16:36 | SUR.PHASEII ---
1529 RECEIVED FROM RECOVERY AND ASSISTED TO BATHROOM.ONLY BLOODY URINE AND CLOTS.RETURNED TO ROOM 1600 BLADDER SCANNED FOR 550 URINE IN BLADDER. PT ASSISTED TO BATHROOM IN SECOND ATTEMPT TO URINATE,UNABLE TO URINATE. CALLED DR GONZALEZ AND ORDER FOR ASIF CATHETER PLACEMENT. 1625 ASIF CATHETER INSERTED WITHOUT DIFFICULTY,DRAINED LARGE AMOUNT PINK TINGED URINE.
--- NOTE | 2019-10-25 17:24 | SUR.PHASEII ---
1700 URINE PINK TINGED WITHOUT CLOTS.
== END 2019-10-25 17:25 | disposition home or self-care (01) ==
PROVIDERS: PCP Family Medicine; Visit Provider Urology
PROC: (CPT 52317; principal; 2019-10-25 13:30)
PROC: (CPT 52352; 2019-10-25 13:30)
DX: N21.0 Calculus in bladder (principal); N40.0 Benign prostatic hyperplasia without lower urinary tract symptoms; G62.9 Polyneuropathy, unspecified; K21.9 Gastro-esophageal reflux disease without esophagitis; I47.1 Supraventricular tachycardia; Z79.82 Long term (current) use of aspirin; E66.9 Obesity, unspecified; Z68.29 Body mass index [BMI] 29.0-29.9, adult
CPT/HCPCS: 52317; 82365; 88300; A9270; C1758; C1769; J0690; J1100; J2001; J2370; J2405; J2704; J3010; J7120; Q9966

== ENCOUNTER 2019-10-26 11:20 | Emergency (ER) | payer MEDICARE, SELFPAY ==
[2019-10-26 11:20] VITALS: BP 147/78; PULSE 72; RESP 16; TEMP 36.2; O2SAT 96
--- NOTE | 2019-10-26 12:00 | PC.NURSE ---
pts medina removed. clot noted to tip and 2 inch length of cath. pt dribbling urine. [address] way medina placed without difficulty. no initial urine output until 10cc of saline flush provided. 550 cc blood tinged urine with small clots returned.
--- NOTE | 2019-10-26 12:20 | PC.NURSE ---
large clot manually irrigated from 3 way medina cath. irrigation continues with pale pink urine returned.
--- NOTE | 2019-10-26 12:21 | ED.MALEGU ---
HPI - Male Genitourinary General Chief complaint: Urogenital-Male Stated complaint: urinary catheter problems Time Seen by Provider: 10/26/19 11:27 History of Present Illness HPI Narrative: Patient is a 79-year-old male who presents the ER with urinary catheter complications. He had it placed yesterday after undergoing a bladder stone removal. He was in the postop area and he was unable to urinate. Reports it seemed to drain well overnight. When he changed out his overnight bag for a leg bag he is stopped having any additional drainage and is developing lower abdominal pressure. No fevers or chills or sweats. Patient reports having some blood-tinged urine. Related Data Home Medications Medication Instructions Recorded Confirmed aspirin 81 mg tablet,delayed 81 mg PO DAILY 12/18/18 10/25/19 release calcium carbonate 500 mg (1,250 1 tablet PO DAILY 12/18/18 10/25/19 mg)-vitamin D3 400 unit tablet loperamide [Imodium A-D] 2 mg PO QID PRN 10/18/19 10/25/19 tamsulosin 0.4 mg PO DAILY 10/18/19 10/25/19 testosterone cypionate 300 mg IM .Q2WEEK 10/18/19 10/25/19 Allergies Allergy/AdvReac Type Severity Reaction Status Date / Time No Known Allergies Allergy Unknown Verified 10/25/19 12:44 Review of Systems Constitutional: Constitutional: Denies chills and Denies fever(s) Gastrointestinal: Gastrointestinal: Reports abdominal pain, Denies nausea and Denies vomiting Genitourinary: Genitourinary: Reports oliguria, Denies dysuria and Denies urinary frequency [facility] Past Medical History Medical History (Updated 10/26/19 @ 12:26 by El Perez MD) Bladder stone BPH (benign prostatic hyperplasia) GERD (gastroesophageal reflux disease) Kidney stones Obesity PAT (paroxysmal atrial tachycardia) Peripheral polyneuropathy UTI (urinary tract infection) Surgical History Surgical History (Updated 10/11/19 @ 16:40 by Emelina Velasquez NP) History of arthroscopic knee surgery History of cholecystectomy History of removal of pigmented skin lesion multiple sites History of tonsillectomy Social History Social History (Updated 10/11/19 @ 16:42 by Emelina Velasquez NP) Social History: the patient lives with his . She is a durable power castings drafter for healthcare. The patient desires to be a full code. 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 Lifelong nonsmoker. He does not use any illicit drugs, marijuana or alcohol. He has 3 children Smoking status: Never smoker Alcohol intake: former Substance use: never Substance use type: does not use Gender identity (if verbalized by the patient): Male Spiritual care concerns: No Exam Narrative: Exam Narrative: GENERAL: Well-appearing, well-nourished, and in no acute distress. HEAD: Normocephalic, atraumatic. ENT: Mucous membranes moist. ABDOMEN: Soft, mild suprapubic pain, nondistended, normal active bowel sounds. EXTREMITIES: Normal range of motion. No edema. NEURO: Alert and oriented x3.. Course Course Emergency Course: Burk catheter could not be irrigated so it was removed. About 3 inches of clot was present within the line. A three-way catheter was placed. There is some fine bloody particulate followed by a large clot, irrigating well and patient's pain is relieved. Vital Signs Vital signs: Vital Signs Temperature 97.2 F L 10/26/19 11:20 Pulse Rate 72 10/26/19 11:20 Respiratory Rate 16 10/26/19 11:20 Blood Pressure 147/78 H 10/26/19 11:20 Pulse Oximetry 96 10/26/19 11:20 Temperature 97.2 F L 10/26/19 11:20 Pulse Rate 72 10/26/19 11:20 Respiratory Rate 16 10/26/19 11:20 Blood Pressure 147/78 H 10/26/19 11:20 Pulse Oximetry 96 10/26/19 11:20 Discharge Plan Discharge Clinical Impression: Complication of Burk catheter Patient Disposition: Home, Self-Care Condition: Stable Instructions: Burk Catheter Placement and Care (E
== END 2019-10-26 14:15 | disposition home or self-care (01) ==
PROVIDERS: Emergency Provider Emergency Medicine; PCP Family Medicine
DX: T83.091A Other mechanical complication of indwelling urethral catheter, initial encounter (principal); Z87.891 Personal history of nicotine dependence; N40.0 Benign prostatic hyperplasia without lower urinary tract symptoms; K21.9 Gastro-esophageal reflux disease without esophagitis; G62.9 Polyneuropathy, unspecified; E66.9 Obesity, unspecified; Z79.82 Long term (current) use of aspirin
CPT/HCPCS: 51700; 81001; 87086; 99283

== ENCOUNTER 2019-10-26 21:52 | Emergency (ER) | payer MEDICARE, SELFPAY ==
[2019-10-26 21:53] VITALS: BP 145/67; PULSE 85; RESP 20; TEMP 36.4; O2SAT 97
--- NOTE | 2019-10-26 22:17 | ED.MALEGU ---
HPI - Male Genitourinary General Chief complaint: Urogenital-Male Stated complaint: blocked catheter Time Seen by Provider: 10/26/19 21:57 History of Present Illness HPI Narrative: Seen here earlier today for urinary retention. Found o have clots in the bladder. Three-way medina was placed. He was flushed and irrigated. Everything was going well until this evening when he noted that n urine had drained into the bag for awhile and he had a mild pain in the lower abdomen. It has again started draining at this time. It is somewhat dark, no lori blood or clots. No fever, nausea, vomiting. He is currently on antibiotics for a UTI. Related Data Home Medications Medication Instructions Recorded Confirmed aspirin 81 mg tablet,delayed 81 mg PO DAILY 12/18/18 10/25/19 release calcium carbonate 500 mg (1,250 1 tablet PO DAILY 12/18/18 10/25/19 mg)-vitamin D3 400 unit tablet loperamide [Imodium A-D] 2 mg PO QID PRN 10/18/19 10/25/19 tamsulosin 0.4 mg PO DAILY 10/18/19 10/25/19 testosterone cypionate 300 mg IM .Q2WEEK 10/18/19 10/25/19 Allergies Allergy/AdvReac Type Severity Reaction Status Date / Time No Known Allergies Allergy Unknown Verified 10/26/19 22:31 Review of Systems Review of Systems: All systems reviewed & are unremarkable except as noted in HPI and below Constitutional: Constitutional: Denies chills and Denies fever(s) Cardiovascular: Cardiovascular: Denies chest pain Respiratory: Respiratory: Denies dyspnea Gastrointestinal: Gastrointestinal: Reports abdominal pain and Denies nausea Genitourinary: Genitourinary: Denies hematuria Musculoskeletal: Musculoskeletal: Denies back pain Neurologic: Denies weakness PMFSH Past Medical History Medical History Bladder stone BPH (benign prostatic hyperplasia) GERD (gastroesophageal reflux disease) Kidney stones Obesity PAT (paroxysmal atrial tachycardia) Peripheral polyneuropathy UTI (urinary tract infection) Surgical History Surgical History History of arthroscopic knee surgery History of cholecystectomy History of removal of pigmented skin lesion multiple sites History of tonsillectomy Family History Family History Sibling Family history of malignant neoplasm Mother Family history of malignant neoplasm Father Family history of lung cancer Other Hypertension Social History Social History Social History: the patient lives with his . She is a durable power semiconductor processing technician for healthcare. The patient desires to be a full code. 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 Lifelong nonsmoker. He does not use any illicit drugs, marijuana or alcohol. He has 3 children Smoking status: Never smoker Alcohol intake: former Substance use: never Substance use type: does not use Gender identity (if verbalized by the patient): Male Spiritual care concerns: No Exam Const: General: healthy appearing, no acute distress and alert Orientation/consciousness: patient oriented x3 HENMT: Head: normal to inspection Resp: Effort & Inspection: normal respiratory effort Auscultation: clear to auscultation bilaterally, no rales, no rhonchi and no wheezes Cardio: Jugular venous distension: no JVD Rate: regular rate Rhythm: regular rhythm GI: Inspection: non-distended GI Palp: Yes Soft to palpation and No Tenderness to palpation present (GI) : General: Yes bladder normal to palpation Skin: General skin exam: normal color Neuro: General: patient oriented x3 and moves all extremities Speech: normal speech Extrem: General: no edema Psych: Appearance: well kempt Affect: normal affect Course Vital Signs Vital signs: Vital Signs Temperatu
[2019-10-26 23:21] LABS: Add Urine Microscopic? YES; Appearance Urine Cloudy (Clear); Bacteria Urine Trace /hpf; Bilirubin Urine Negative (Negative); Blood Urine 3+ (Negative); Color Urine Yellow (Yellow); Glucose Urine UA Negative (Negative); Ketones Urine Negative (Negative); Leukocyte Esterase Ur 2+ LEU/UL (Negative); Mucus Urine Rare /lpf; Nitrate Urine Negative (Negative); Protein Urine 2+ mg/dL (Negative); RBC Urine >75 /hpf (0-2); Specific Grav Ur 1.015 (1.001-1.035); Urobilinogen Urine Negative mg/dL (<2.0); WBC Urine >75 /hpf
[2019-10-27 00:10] VITALS: BP 134/76; PULSE 70; RESP 20; O2SAT 94
== END 2019-10-27 00:13 | disposition home or self-care (01) ==
PROVIDERS: Emergency Provider Emergency Medicine; PCP Family Medicine
DX: T83.091A Other mechanical complication of indwelling urethral catheter, initial encounter (principal); Z79.82 Long term (current) use of aspirin; N40.0 Benign prostatic hyperplasia without lower urinary tract symptoms; K21.9 Gastro-esophageal reflux disease without esophagitis; E66.9 Obesity, unspecified; Z68.30 Body mass index [BMI] 30.0-30.9, adult; G62.9 Polyneuropathy, unspecified; Z87.440 Personal history of urinary (tract) infections; Z87.442 Personal history of urinary calculi; I47.1 Supraventricular tachycardia
CPT/HCPCS: 81001; 87086; 99283

== ENCOUNTER 2020-05-24 10:16 | Emergency (ER) | payer MEDICARE, SELFPAY ==
[2020-05-24 10:28] VITALS: BP 166/70; PULSE 73; RESP 16; TEMP 36.7; O2SAT 99
--- NOTE | 2020-05-24 10:42 | ED.GENADULT ---
HPI - General Adult General Chief complaint: Skin/Abscess/Foreign Body Stated complaint: EARACHE Time Seen by Provider: 05/24/20 10:42 Source: patient and RN notes reviewed Mode of arrival: ambulatory Limitations: no limitations History of Present Illness HPI narrative: 80-year-old male presents with complaints of right otalgia for the past 14 days. Blue reports increase pain and pressure to RT ear. Candle wicking with some relief and peroxide for cleaning and OTC ear drops without relief. History of hearing loss, wears bilateral hearing aids. Denies drainage or tinnitus. Denies injury to ear. Denies rhinorrhea and nasal congestion. No high fevers. Denies nausea, vomiting, and dizziness. Tolerating po intake well. The patient reports he have not been diagnosed with COVID-19. The patient reports he is not waiting for the results of a COVID-19 lab test. The patient reports he do not have chills, weakness, or fatigue. The patient reports he received 2 Pfizer COVID-19 vaccines. The patient reports he do not have a new or worsening cough or shortness of breath. Denies chest pain. The patient reports he do not have any loss of taste or smell, sore throat, abdominal pain, and diarrhea. Denies recent traveling. Denies concerns for COVID-19 or exposures been home with limited outdoor exposure except for essential household needs and return home. At this time, patient is not suspected of having COVID-19. Some parts of this dictation were generated by voice recognition software and may contain typographical and/or grammatical inaccuracies. Related Data Home Medications Medication Instructions Recorded Confirmed aspirin 81 mg tablet,delayed 81 mg PO DAILY 12/18/18 05/24/20 release calcium carbonate 500 mg (1,250 1 tablet PO DAILY 12/18/18 05/24/20 mg)-vitamin D3 400 unit tablet tamsulosin 0.4 mg PO DAILY 10/18/19 05/24/20 Allergies Allergy/AdvReac Type Severity Reaction Status Date / Time No Known Allergies Allergy Unknown Verified 05/24/20 10:21 Review of Systems Review of Systems: Narrative: CONSTITUTIONAL: Denies fever, chills, sweats. EYES: Denies visual changes, redness, discharge. ENT: Denies sore throat, ear drainage, rhinorrhea, congestion. Complains of LT otalgia, decrease hearing. CARDIOVASCULAR: Denies chest pain, palpitations, edema. RESPIRATORY: Denies dyspnea, wheezing, cough. GASTROINTESTINAL: Denies abdominal pain, nausea, vomiting, diarrhea. SKIN: Denies rash or itching. MUSCULOSKELETAL: Denies acute back pain, joint pain, or myalgia. NEUROLOGIC: Denies numbness or focal weakness. PSYCHIATRIC: Denies anxiety or depression. All systems reviewed & are unremarkable except as noted in HPI and below. [facility] Past Medical History Medical History (Updated 05/25/20 @ 00:01 by Emelyn Dareyes) Bladder stone BPH (benign prostatic hyperplasia) GERD (gastroesophageal reflux disease) Kidney stones Obesity PAT (paroxysmal atrial tachycardia) Peripheral polyneuropathy UTI (urinary tract infection) Surgical History Surgical History History of arthroscopic knee surgery History of cholecystectomy History of removal of pigmented skin lesion multiple sites History of tonsillectomy Family History Family History Sibling Family history of malignant neoplasm Mother Family history of malignant neoplasm Father Family history of lung cancer Other Hypertension Social History Social History Social History: the patient lives with his . She is a durable power regional education manager for healthcare. The patient desires to be a full code. 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 Lifelong nonsmoker. He does not use any illicit drugs, marijuana or alcohol. He has 3
== END 2020-05-24 11:10 | disposition home or self-care (01) ==
PROVIDERS: Emergency Provider Nurse Practitioner Family; PCP Family Medicine
DX: H66.001 Acute suppurative otitis media without spontaneous rupture of ear drum, right ear (principal); H65.193 Other acute nonsuppurative otitis media, bilateral; N40.0 Benign prostatic hyperplasia without lower urinary tract symptoms; K21.9 Gastro-esophageal reflux disease without esophagitis; G62.9 Polyneuropathy, unspecified
CPT/HCPCS: 99213; G0463

== ENCOUNTER 2021-06-02 14:14 | Outpatient (CLI) | payer MEDICARE, SELFPAY ==
--- NOTE | ~2021-06-02 | XR_ITS ---
EXAMINATION: XR foot RT min 3V, XR toe 1st RT min 2V DATE: 06/02/2021 14:45 INDICATION: Right great toe pain. Neuropathy. TECHNIQUE: 1. Dorsoplantar, two oblique and lateral views of the right foot were obtained. 2. Dorsal plantar and lateral views of the right great toe were obtained. COMPARISON: None. FINDINGS: Bone alignment is normal. No fracture. Minimal to mild osteoarthritis at the calcaneocuboid, first me tatarsophalangeal and several interphalangeal joints. No erosions or periosteal reaction. Soft tissue s are unremarkable. IMPRESSION: 1. 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 No acute o sseous abnormality. Reviewed, dictated and finalized at location A. IMPRESSION: 1. 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 No acute osseous abnormality.
--- NOTE | ~2021-06-02 | XR_ITS ---
EXAMINATION: XR foot RT min 3V DATE: 06/02/2021 14:45 INDICATION: Right great toe pain. Neuropathy. TECHNIQUE: 1. Dorsoplantar, two oblique and lateral views of the right foot were obtained. 2. Dorsal plantar and lateral views of the right great toe were obtained. COMPARISON: None. FINDINGS: Bone alignment is normal. No fracture. Minimal to mild osteoarthritis at the calcaneocuboid, first me tatarsophalangeal and several interphalangeal joints. No erosions or periosteal reaction. Soft tissue s are unremarkable. IMPRESSION: 1. 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 No acute o sseous abnormality. Reviewed, dictated and finalized at location A. IMPRESSION: 1. 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 No acute osseous abnormality.
== END 2021-06-02 14:15 | disposition home or self-care (01) ==
LOC: ANHIMG 14:24
PROVIDERS: PCP Family Medicine; Visit Provider Physician Assistant
DX: M79.674 Pain in right toe(s) (principal); M19.071 Primary osteoarthritis, right ankle and foot
CPT/HCPCS: 73630; 73660

== ENCOUNTER 2021-10-31 23:06 | Observation (INO) | payer MEDICARE, SELFPAY ==
--- NOTE | ~2021-10-31 | XR_ITS ---
EXAMINATION: XR chest 2V DATE: 11/01/2021 00:50 INDICATION: Fever. TECHNIQUE: Frontal and lateral views of the chest were obtained. COMPARISON: Chest single view 10/11/2019, CT abdomen and pelvis 11/01/2021 FINDINGS: There is mild scarring at the lung apices. There is mild atelectasis at the lung bases. No pleural effusion or pneumothorax. The heart size is normal. Surgical clips in the right upper quadran t are likely from cholecystectomy. IMPRESSION: 1. Mild atelectasis at the lung bases and mild scarring at the lung apices. Reviewed, dictated and finalized at location A.
--- NOTE | ~2021-10-31 | CT_ITS ---
EXAMINATION: CT abdomen pelvis w con DATE: 11/01/2021 00:36 INDICATION: Vomiting. Abdominal distention. TECHNIQUE: Computed tomography (CT) of the abdomen and pelvis was performed with 100 mL Omnipaque 350 intravenous contrast. Automated exposure control and iterative reconstruction technique were employe d. The dose-length product was 904.81 mGy-cm. COMPARISON: CT abdomen and pelvis 10/11/2019 FINDINGS: The visualized portions of the lung bases demonstrate mild atelectasis. No pleural effusion . The heart size is normal. There are coronary artery calcifications. No pericardial effusion. There is a small sliding hiatal hernia. There are cysts in the liver measuring up to 15 mm. There are hutton es of cholecystectomy. The spleen, pancreas, and left adrenal gland are normal. There is a 12 mm mass in right adrenal gland measuring soft tissue attenuation without change in size, likely an adenoma. There are cysts in the kidneys measuring up to 2.4 cm on the left. There is chronic mild bilateral hy droureter. The prostate is severely enlarged. There are no dilated loops of bowel. The appendix is no rmal. There are no pathologically enlarged lymph nodes. There is no free intraperitoneal fluid. There is severe lumbar spondylosis. IMPRESSION: 1. Small sliding hiatal hernia. 2. Severely enlarged prostate. Reviewed, dictated and finalized at location A.
[2021-10-31 23:08] VITALS: BP 165/71; PULSE 101; RESP 22; TEMP 39.2; O2SAT 92
--- NOTE | 2021-10-31 23:24 | ECG_ITS ---
Measurements Intervals [place] Rate: 104 P: 5 DC: 156 QRS: 70 QRSD: 182 T: 40 QT: 325 QTc: 429 Interpretive Statements SINUS TACHYCARDIA RIGHT BUNDLE BRANCH BLOCK ABNORMAL ECG COMPARED TO ECG 12/10/2018 12:48:35 SINUS TACHYCARDIA NOW PRESENT Electronically Signed On 11-01-2021 6:54:34 CDT by Cam Diaz D.O.
[2021-10-31 23:36] VITALS: O2SAT 89
[2021-10-31 23:38] VITALS: O2SAT 94
[2021-10-31] MEDS: SODIUM CHLORIDE 0.9% IV 1,000 ML 999 ML IV CONT (23:52)
[2021-10-31 23:53] LABS: Basophils Percent Auto 0.1 % (0.2-1.2); Eosinophils Absolute Auto 0.1 K/mm3 (0-0.3); Eosinophils Percent Auto 1.3 % (0-4.4); Hematocrit 51.6 % (42.0-52.0); Hemoglobin 17.8 g/dL (14.0-18.0); Immature Granulocyte Absolute 0.02 K/mm3 (0.00-0.031); Immature Granulocyte Percent A 0.2 % (0-0.5); Lymphocytes Absolute Auto 0.36 K/mm3 (0.9-3.2); Lymphocytes Percent Auto 4.4 % (18.3-44.2); Mean Corpuscular HGB Conc 34.5 g/dl (32-36); Mean Corpuscular Hemoglobin 32.6 pg (26-34); Mean Corpuscular Volume 94.5 fl (80-100); Mean Platelet Volume 9.5 fl (7.4-10.4); Monocytes Absolute Auto 0.4 K/mm3 (0.1-0.6); Monocytes Percent Auto 5.3 % (2.6-8.5); Neutrophils Absolute Auto 7.3 K/mm3 (1.3-6.7); Neutrophils Percent Auto 88.7 % (45.5-73.1); Platelet Count Result 150 k/mm3 (150-375); Red Blood Count 5.46 M/mm3 (4.6-6.20); White Blood Count 8.2 K/mm3 (4.5-10.0)
[2021-10-31] MEDS: ONDANSETRON INJ 4 MG/2 ML VIAL IV PUSH (23:53)
[2021-11-01] VITALS (10 sets, daily range): BP systolic 113–144; BP diastolic 57–78; PULSE 70–93; RESP 14–24; TEMP 36.2–37.7; O2SAT 95–96; BMI 30.4
[2021-11-01] LABS: Appearance Urine Cloudy (Clear); Bilirubin Urine Negative (Negative); Color Urine Yellow (Yellow); Glucose Urine UA Negative (Negative); Ketones Urine Negative (Negative); Leukocyte Esterase Ur Trace LEU/UL (Negative); Nitrate Urine Positive (Negative); Protein Urine Trace mg/dL (Negative); pH Urine 6.5 (5.0-9.0)
[2021-11-01 00:02] LABS: Lactic Acid Reflex 1.3 mmol/L (0.7-2.0)
[2021-11-01 00:02] LABS: Add Urine Microscopic? YES; Blood Urine Trace-Intact (Negative)
[2021-11-01 00:04] LABS: INR 1.1; Prothrombin Time 13.3 Seconds (11.1-14.7)
[2021-11-01 00:11] LABS: Alanine Aminotransferase 25 U/L (6-50); Albumin Level 4.7 g/dL (3.5-5.1); Alkaline Phosphatase 62 U/L (38-126); Anion Gap 14 mmol/L (8-16); Aspartate Amino Transferase 32 U/L (17-59); Bilirubin,Total 0.7 mg/dL (0.2-1.3); Blood Urea Nitrogen 20 mg/dL (9-20); CRP 0.8 mg/dL (<1.0); Calcium 8.7 mg/dL (8.4-10.2); Carbon Dioxide 24 mmol/L (22-30); Chloride 101 mmol/L (98-107); Estimated CRCL calculation 55 ml/min; Estimated Glomerular Filt Rate > 60; Glucose 100 mg/dL (65-110); Lipase 97 U/L (23-300); Potassium 4.2 mmol/L (3.4-5.0); Sodium 139 mmol/L (137-145)
[2021-11-01 00:12] LABS: Troponin I < 0.012 ng/mL (0.000-0.034)
[2021-11-01 00:15] LABS: Bacteria Urine 4+ /hpf; Mucus Urine Rare /lpf; Squamous Epithelial Cell Urine Rare /hpf (Few)
--- NOTE | 2021-11-01 00:52 | ED.GENADULT ---
HPI - General Adult General Chief complaint: Fever Stated complaint: shaking while laying in bed History of Present Illness HPI narrative: this is an 81-year-old male presenting to ED with a chief complaint of not feeling well. Approximately an hour and half ago the patient said that he started to feel fever, chills and nauseous. His became concerned and called EMS. EN route with EMS he did have an episode of vomiting. The patient is denying chest pain, difficulty breathing, productive cough, abdominal pain. He is no longer nauseous. Patient does have a history of frequent urinary tract infections due to a large prostate. Patient is denying any urinary symptoms at this time. Related Data Home Medications Medication Instructions Recorded Confirmed aspirin 81 mg tablet,delayed 81 mg PO DAILY 12/18/18 08/25/21 release calcium carbonate 500 mg-vitamin 1 tablet PO DAILY 12/18/18 08/25/21 D3 10 mcg (400 unit) tablet terbinafine HCl 250 mg tablet 250 mg PO DAILY 08/25/21 08/25/21 Allergies Allergy/AdvReac Type Severity Reaction Status Date / Time No Known Allergies Allergy Unknown Verified 10/31/21 23:17 Review of Systems Review of Systems: CONSTITUTIONAL: Denies night sweats. EYES: No eye pain ENT: Denies rhinorrhea CARDIOVASCULAR: Denies palpitations RESPIRATORY: Denies hemoptysis GASTROINTESTINAL: Denies hematemesis GENITOURINARY: Denies hematuria. SKIN: Denies rash MUSCULOSKELETAL: Denies myalgia. NEUROLOGIC: Denies weakness. PSYCHIATRIC: Denies delusions PMFSH Past Medical History Medical History (Updated 11/01/21 @ 02:12 by Deep Mi MD) Bladder stone BPH (benign prostatic hyperplasia) GERD (gastroesophageal reflux disease) Kidney stones Obesity PAT (paroxysmal atrial tachycardia) Peripheral polyneuropathy UTI (urinary tract infection) Surgical History Surgical History History of arthroscopic knee surgery History of cholecystectomy History of removal of pigmented skin lesion multiple sites History of tonsillectomy Family History Family History Sibling Family history of malignant neoplasm Mother Family history of malignant neoplasm Father Family history of lung cancer Other Hypertension Social History Social History Social History: the patient lives with his . She is a durable power trial attorney for healthcare. The patient desires to be a full code. 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 Lifelong nonsmoker. He does not use any illicit drugs, marijuana or alcohol. He has 3 children Smoking status: Never smoker Alcohol intake: former Alcohol use details: social drinker Substance use: never Substance use type: does not use Gender identity (if verbalized by the patient): Male Sexual Orientation (if Verbalized by the Patient): Straight or Heterosexual Spiritual care concerns: No Exam Narrative: APPEARANCE: No apparent distress. Head atraumatic. EYES: PERRLA/EOMI, NOSE: Normal no drainage NECK: Supple, Trachea midline RESPIRATORY: CTAB, No increased work of breathing. CARDIOVASCULAR: S1S2 appreciated ABDOMINAL: Abdomen is soft, distended and nontender. There is some suprapubic tenderness. MUSCULOSKELETAl: No obvious deformities NEURO: Alert. Moving 4/4 extremities SKIN:: Warm, dry. Normal color PSYCHIATRIC: Normal affect Course Vital Signs Vital signs: Vital Signs Temperature 102.6 F H 10/31/21 23:08 Pulse Rate 101 H 10/31/21 23:08 Respiratory Rate 22 H 10/31/21 23:08 Blood Pressure 165/71 H 10/31/21 23:08 Pulse Oximetry 92 10/31/21 23:08 Oxygen Delivery Room Air 10/31/21 23:08 Temperature 99.8 F H 11/01/21 00:55 Pulse Rate 87 11/01/21 01:51 Respiratory Rate 21 H 10/14
[2021-11-01 01:15] LABS: SARS-CoV-2 RNA PCR Negative
--- NOTE | 2021-11-01 02:04 | PM.IMHP ---
H&P: HPI History of Present Illness Date/Time: 11/01/21 02:04 Chief Complaint: Fever, nausea, and chills Narrative: Patient is an 81 year old male with a past medical history of bladder stone, BPH, GERD, UTI who presented to the ED with fevers, chills, and nausea. Patient is stated they were having a normal day today and went to [employer] for lunch. About 2144 patient stated he was going to bed that he did not feel well. Patient's stated that she went down to look at him and he was shaking like a leaf. Patient stated that he was had a fever however his stated they did try to get a fever but could not get an accurate temp. Patient at 1 point thought he was having a heart attack however he denied any chest pain, shortness of breath, or fatigue. Patient did state that he did put on his CPAP because he did know why he was not feeling good. He stated that he thinks he broke his fever in the ambulance he broke out into a sweat. He also stated the ambulance he had nausea and vomited once. Patient stated recently he was told by his doctor's office that he might have a urine infection however they stated to just watch his urine. He denies any cloudiness or odor. He did state though he does go about every 1 to 1-1/2 hours and does not fully empty. He denies any pain or burning. He does currently see Dr. Israel for BPH. CT of the abdomen pelvis did show a prostate of 7.8 cm with no hydronephrosis. UA does indicate possible infection. Patient stated that he did have a bowel movement however looking at the CT it does appear that he might have some constipation. Patient stated that he did have a small bowel movement this morning and that he takes regular stool softeners. He did mention that he felt like his stomach was harder than normal. Patient currently denies any chest pain, shortness of breath, abdominal pain, pain or burning with urination, vision changes, headaches, hearing changes, syncope or falls. Patient did state that he has some dizziness however is not more than it normally would be. Patient is being admitted to the hospitalist service as an inpatient Review of Systems Review of Systems: All systems reviewed & are unremarkable except as noted in HPI and below PMFSH Past Medical History Medical History Bladder stone BPH (benign prostatic hyperplasia) GERD (gastroesophageal reflux disease) Joint effusion Kidney stones Obesity PAT (paroxysmal atrial tachycardia) Peripheral polyneuropathy UTI (urinary tract infection) Surgical History Surgical History History of arthroscopic knee surgery History of cholecystectomy History of removal of pigmented skin lesion multiple sites History of tonsillectomy Family History Family History (Updated 11/01/21 @ 04:39 by BETZAIDA Newby) Sibling Family history of malignant neoplasm Mother Family history of malignant neoplasm Father Family history of lung cancer Heart disease Cerebrovascular accident Other Hypertension Social History Social History (Updated 11/01/21 @ 04:39 by BETZAIDA Newby) Social History: the patient lives with his Katja. She is a durable power estate attorney for healthcare. The patient desires to be a full code. 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 Lifelong nonsmoker. He does not use any illicit drugs, marijuana or alcohol. 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
--- NOTE | 2021-11-01 03:40 | ADMGEN ---
This patient, Blue Kelley, was admitted to [facility] Surg Room 304-02. Patient/family oriented to hospital policies and general routines including ID bracelet, bed and alarms, visiting hours, pain management, procedures, bathroom and other care routines, personal items, smoking policy, room service/diet, and visiting hours. Information on how to activate the Rapid Response Team has been discussed. Patient/Family are encouraged to report perceived risks to care and to ask questions if they do not understand what they are told or what they should do.
[2021-11-01 07:27] LABS: Basophils Percent Auto 0.1 % (0.2-1.2); Eosinophils Percent Auto 0.3 % (0-4.4); Hematocrit 46.7 % (42.0-52.0); Hemoglobin 15.7 g/dL (14.0-18.0); Immature Granulocyte Absolute 0.03 K/mm3 (0.00-0.031); Immature Granulocyte Percent A 0.3 % (0-0.5); Lymphocytes Absolute Auto 0.46 K/mm3 (0.9-3.2); Lymphocytes Percent Auto 5.1 % (18.3-44.2); Mean Corpuscular HGB Conc 33.6 g/dl (32-36); Mean Corpuscular Hemoglobin 32.4 pg (26-34); Mean Corpuscular Volume 96.3 fl (80-100); Mean Platelet Volume 9.5 fl (7.4-10.4); Monocytes Absolute Auto 0.9 K/mm3 (0.1-0.6); Monocytes Percent Auto 9.6 % (2.6-8.5); Neutrophils Absolute Auto 7.6 K/mm3 (1.3-6.7); Neutrophils Percent Auto 84.6 % (45.5-73.1); Platelet Count Result 143 k/mm3 (150-375); Red Blood Count 4.85 M/mm3 (4.6-6.20); Red Cell Distribution Width 14.2 % (11.5-14.5)
[2021-11-01 07:43] LABS: Alanine Aminotransferase 22 U/L (6-50); Albumin Level 3.7 g/dL (3.5-5.1); Alkaline Phosphatase 52 U/L (38-126); Anion Gap 9 mmol/L (8-16); Aspartate Amino Transferase 25 U/L (17-59); Bilirubin,Total 0.6 mg/dL (0.2-1.3); Blood Urea Nitrogen 17 mg/dL (9-20); Carbon Dioxide 26 mmol/L (22-30); Chloride 104 mmol/L (98-107); Estimated CRCL calculation 62 ml/min; Estimated Glomerular Filt Rate > 60; Glucose 99 mg/dL (65-110); Potassium 4.4 mmol/L (3.4-5.0); Sodium 139 mmol/L (137-145)
[2021-11-01] MEDS: ENOXAPARIN 40 MG/0.4 ML SYRINGE SUB-Q (08:40)
[2021-11-01] MEDS: polyethylene glycoL 3350 17 GM POWD.PACK PO (08:41)
[2021-11-01] MEDS: DOCUSATE SODIUM 100 MG CAPSULE PO ×2 (08:41→21:30)
[2021-11-01] MEDS: TERBINAFINE HCL 250 MG TABLET PO (08:41)
[2021-11-01] MEDS: FLECAINIDE ACETATE 100 MG TABLET PO ×2 (08:41→21:31)
[2021-11-01] MEDS: LORATADINE 10 MG TABLET PO (08:42)
[2021-11-01] MEDS: FINASTERIDE 5 MG TABLET PO (08:42)
[2021-11-01] MEDS: ASPIRIN 81 MG ENTERIC TABLET PO (08:42)
--- NOTE | 2021-11-01 12:09 | PM.IMPN ---
Progress Note: A&P Assessment and Plan (1) Abnormal finding on urinalysis: Code(s): R82.90 - Unspecified abnormal findings in urine Status: Acute Assessment and Plan: UA is positive for nitrates, trace leukocyte esterase, and WBC 10-15 Continue Ceftriaxone in the ED Does have severe BPH, per CT, and likely contributing to UTI Urine culture pending Adjust antibiotics to culture results (2) Sepsis: Code(s): A41.9 - Sepsis, unspecified organism Status: Acute Assessment and Plan: Patient meets SIRS criteria with fever 102.6, tachycardia 101, tachypnea 22, with a source of infection Source infection appears to be renal in nature IV fluids given in the ED WBCs 8.2 Blood culture pending Urine culture pending Continue ceftriaxone (3) BPH (benign prostatic hyperplasia): Code(s): N40.0 - Benign prostatic hyperplasia without lower urinary tract symptoms Status: Acute Assessment and Plan: 7.8 cm enlarged prostate See Dr. Israel Continue home finasteride Consult urology, as this is probably the reason for the frequent UTI Complaints of urination every 1-1.5 hours Trend urine output Post void residuals 170 mL Tamsulosin added. Time Spent With Patient Time with patient: 15 - 25 minutes Subjective Date/time seen: 11/01/21 12:09 Patient is an 81 yo male with medical history SVT, bladder stone, BPH, and GERD. He presented to ED fore evaluation of fevers and rigors. He was admitted for UTI management and evaluation by Urology. No new complaints. His last temp was 102F in the ED. He denies rigors, dysuria, urinary frequency, hematuria, urgency or CVA tenderness. Review of Systems Review of Systems: All systems reviewed & are unremarkable except as noted in HPI and below Exam Narrative: General: No acute distress.? Well-developed adult male sitting up in bed. Mental Status/Psych: Awake, alert and oriented x4 with clear speech. Neutral mood and affect. Pleasant and cooperative. Skin: fair, warm, dry and intact without rashes or lesions. No open wounds. Good turgor.? HEENT: Normocephalic. Conjunctivae are clear. Sclera is non-icteric. EOM intact. PERRL. Grossly normal hearing. Oral mucosa pink and moist. Tongue midline. Oropharynx within normal limits. Neck: Supple. No JVD. Heart: S1 and S2 regular rate and rhythm. No murmurs, gallops, or rubs auscultated. Chest: Respirations even and unlabored. Lung sounds are clear to auscultation in all lobes bilaterally without wheezes, rhonchi, or rales. Abdomen: Soft, round and non-tender to palpation.? Bowel sounds present in all 4 quadrants. No suprapubic or CVA tenderness. Extremities:? Grossly normal ROM all extremities. No edema. Radial and dorsalis pedis pulses +2 bilaterally. Neurological: No focal deficits. Cranial nerves 2-12 grossly intact. Objective Data Vital Signs Vital Signs: Vital Signs - 24 hr 10/31/21 23:08 11/01/21 00:55 10/31/21 23:38 Temperature 102.6 F H 99.8 F H Pulse Rate 101 H Respiratory Rate 22 H Blood Pressure 165/71 H Pulse Oximetry 92 94 Oxygen Delivery Room Air Nasal Cannula Oxygen Flow Rate 2 10/31/21 23:36 11/01/21 00:59 11/01/21 01:51 Temperature Pulse Rate 93 87 Respiratory Rate 24 H 21 H Blood Pressure 121/78 123/57 L Pulse Oximetry 89 L 96 95 Oxygen Delivery Oxygen Flow Rate 11/01/21 03:40 11/01/21 03:35 11/01/21 06:00 Temperature 97.5 F L Pulse Rate 77 74 Respiratory Rate 22 H 14 Blood Pressure 121/57 L Pulse Oximetry 95 95 96 Oxygen Delivery Room Air Oxygen Flow Rate 11/01/21 08:41 Temperature Pulse Rate 70 Respiratory Rate Blood Pressure Pulse Oximetry Oxygen Delivery Oxygen Flow Rate Intake/Output Intake/Output: Intake & Output 10/29/21 10/30/21 10/31/21 11/01/21 23:59 23:59 23:59 23:59 Intake Total 1450 Output Total 400 Balance 1050 Meds/Results Medications:
--- NOTE | 2021-11-01 16:08 | WPDURCON ---
Assessment and Plan Assessment and plan (1) BPH (benign prostatic hyperplasia): Code(s): N40.0 - Benign prostatic hyperplasia without lower urinary tract symptoms Status: Acute Assessment and Plan: Continue Finasteride. Add Flomax 0.4mg Qd. PVR <200cc today via bladder scan. No need to insert a catheter. We discussed trying to pair an OAB medication as well for the frequency, urgency and nocturia, however he declines at this time and wants to just add the Flomax for now. (2) Pyelonephritis: Code(s): N12 - Tubulo-interstitial nephritis, not specified as acute or chronic Status: Acute Assessment and Plan: Continue IV antibiotics, patient is eager to go home, unfortunately I encouraged him to stay another day until we are able to get some culture results back. He understands and agrees. Tailor antibiotics to culture results. Ok to discharge home when fever free after 24 hours and culture sensitivities are reported. Follow up with Dr. Israel after discharge. NO further evaluation needed at this time. Urology Consult Note HPI Date Seen: 11/01/21 Time Seen: 16:08 Requesting Physician: Isrrael Preciado MD Primary Care Provider: Jamel Patel MD Consult Narrative Reason for consult: BPH/UTI Narrative: Blue Kelley is a 81 year old male who presented tot he ER d/t fever, chills, nausea and vomiting at home. His called an ambulance for him early this morning. He Has urine and blood cultures pending d/t a UA that is suspicious for a UTI. His CT scan this morning shows a severely enlarged prostate. He is followed by Dr. Israel and remains on Finasteride at home. He continues to have BPH/OAB symptoms of freuqency and urgency as well as nocturia despite treatment with Finasteride and failed attempts with other OAB medications. His creatinine is 1.00, WBC is 9.0 and he is afebrile at this time. He states that he is feeling better at this time, but is sitting in the waiting room on the floor d/t his roommate being bothersome to him. He had a fever upon arrival but remains on Ceftriaxone and fever is improving. He denies hesitancy, straining or dysuria. He also denies hematuria. Review of Systems Constitutional: Constitutional: Reports chills, Reports fatigue and Reports weakness Cardiovascular: Cardiovascular: Denies chest pain Respiratory: Respiratory: Reports no additional respiratory complaints Gastrointestinal: Gastrointestinal: Denies abdominal pain, Reports nausea and Reports vomiting Genitourinary: Genitourinary: Denies hematuria, Denies dysuria, Denies flank pain, Reports urinary frequency, Denies urinary hesitancy and Reports urinary urgency PMFSH Past Medical History Medical History Bladder stone BPH (benign prostatic hyperplasia) GERD (gastroesophageal reflux disease) Joint effusion Kidney stones Obesity PAT (paroxysmal atrial tachycardia) Peripheral polyneuropathy UTI (urinary tract infection) Surgical History Surgical History History of arthroscopic knee surgery History of cholecystectomy History of removal of pigmented skin lesion multiple sites History of tonsillectomy Family History Family History Sibling Family history of malignant neoplasm Mother Family history of malignant neoplasm Father Family history of lung cancer Heart disease Cerebrovascular accident Other Hypertension Social History Social History Social History: the patient lives with his Katja. She is a durable power claim attorney for healthcare. The patient desires to be a full code. 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 Lifelong nonsmoker. He does not use any illicit drugs, maria g
[2021-11-01] MEDS: MELATONIN 3 MG TABLET PO (21:31)
[2021-11-02 06:00] VITALS: BP 134/59; PULSE 66; RESP 14; TEMP 36.1; O2SAT 94
[2021-11-02 06:02] LABS: Basophils Percent Auto 0.2 % (0.2-1.2); Eosinophils Absolute Auto 0.1 K/mm3 (0-0.3); Eosinophils Percent Auto 1.9 % (0-4.4); Hematocrit 50.8 % (42.0-52.0); Hemoglobin 17.1 g/dL (14.0-18.0); Immature Granulocyte Absolute 0.01 K/mm3 (0.00-0.031); Immature Granulocyte Percent A 0.2 % (0-0.5); Immature Platelet Fraction Pct 2.1 % (0.9-11.2); Lymphocytes Absolute Auto 0.52 K/mm3 (0.9-3.2); Lymphocytes Percent Auto 9.7 % (18.3-44.2); Mean Corpuscular HGB Conc 33.7 g/dl (32-36); Mean Corpuscular Hemoglobin 32.4 pg (26-34); Mean Corpuscular Volume 96.2 fl (80-100); Mean Platelet Volume 8.9 fl (7.4-10.4); Monocytes Absolute Auto 0.8 K/mm3 (0.1-0.6); Monocytes Percent Auto 14.2 % (2.6-8.5); Neutrophils Percent Auto 73.8 % (45.5-73.1); Platelet Count Result 149 k/mm3 (150-375); Red Blood Count 5.28 M/mm3 (4.6-6.20); Red Cell Distribution Width 13.9 % (11.5-14.5); White Blood Count 5.4 K/mm3 (4.5-10.0)
[2021-11-02 06:13] LABS: Alanine Aminotransferase 28 U/L (6-50); Albumin Level 4.5 g/dL (3.5-5.1); Alkaline Phosphatase 58 U/L (38-126); Anion Gap 10 mmol/L (8-16); Aspartate Amino Transferase 32 U/L (17-59); Bilirubin,Total 0.8 mg/dL (0.2-1.3); Blood Urea Nitrogen 16 mg/dL (9-20); Carbon Dioxide 30 mmol/L (22-30); Chloride 98 mmol/L (98-107); Estimated CRCL calculation 62 ml/min; Estimated Glomerular Filt Rate > 60; Glucose 100 mg/dL (65-110); Potassium 4.5 mmol/L (3.4-5.0); Sodium 138 mmol/L (137-145)
[2021-11-02 09:28] VITALS: PULSE 66
[2021-11-02] MEDS: DOCUSATE SODIUM 100 MG CAPSULE PO (09:28)
[2021-11-02] MEDS: ASPIRIN 81 MG ENTERIC TABLET PO (09:28)
[2021-11-02] MEDS: FINASTERIDE 5 MG TABLET PO (09:28)
[2021-11-02] MEDS: FLECAINIDE ACETATE 100 MG TABLET PO (09:28)
[2021-11-02] MEDS: polyethylene glycoL 3350 17 GM POWD.PACK PO (09:28)
[2021-11-02] MEDS: LORATADINE 10 MG TABLET PO (09:28)
[2021-11-02] MEDS: ENOXAPARIN 40 MG/0.4 ML SYRINGE SUB-Q (09:29)
[2021-11-02] MEDS: TAMSULOSIN HCL 0.4 MG CAPSULE PO (10:22)
--- NOTE | 2021-11-02 10:42 | PM.DS ---
DS: Admitting Diagnosis Discharge Date 11/02/2021 1132 Admitting Diagnosis Pyelonephritis Sepsis BPH DS: Discharge Diagnosis Discharge Diagnosis (1) Sepsis: Qualifiers: Sepsis type: Escherichia coli Sepsis acute organ dysfunction status: without acute organ dysfunction Qualified Code(s): A41.51 - Sepsis due to Escherichia coli [E. coli] Code(s): A41.9 - Sepsis, unspecified organism Status: Resolved Assessment and Plan: Patient meets SIRS criteria with fever 102.6, tachycardia 101, tachypnea 22, with evidence of acute UTI, WBCs 8.2 (2) Bacteremia due to Gram-negative bacteria: Code(s): R78.81 - Bacteremia Status: Acute Assessment and Plan: 10/31/21 blood cultures with e.coli growth x both sets. Repeat blood cultures drawn 11/02 negative. (3) Pyelonephritis: Code(s): N12 - Tubulo-interstitial nephritis, not specified as acute or chronic Status: Acute Assessment and Plan: UA is positive for nitrates, trace leukocyte esterase, and WBC 10-15. +flank pain and fevers. treated with IV Rocephin 1 gram Q24 hours 11/01 to 11/02/21; transitioned to cefdinir 300 mg PO BID x 10 more days starting 11/03/21 urine culture pansensitive e.coli (4) BPH (benign prostatic hyperplasia): Qualifiers: Lower urinary tract symptom presence: symptoms present Lower urinary tract symptom detail: urinary frequency Qualified Code(s): N40.1 - Benign prostatic hyperplasia with lower urinary tract symptoms; R35.0 - Frequency of micturition Code(s): N40.0 - Benign prostatic hyperplasia without lower urinary tract symptoms Status: Chronic Assessment and Plan: 7.8 cm enlarged prostate on CT scan. Followed by urology, Dr. Israel. Continue home finasteride Urology consulted. Tamsulosin restarted. (5) Constipation: Code(s): K59.00 - Constipation, unspecified Status: Acute DS: Summary Hospital Course Reason for hospitalization: fever, nausea, chills Hospital Course: Blue Kelley is an 81 year old male with a past medical history of bladder stone, BPH, GERD, UTI who presented to the ED with fevers, chills, and nausea.? He was in his usual state of health until the evening of 10/31/21, he suddenly felt unwell.? His said he was shaking like a leaf. ? He reported a fever however his stated they could not get an accurate temp.?He denied chest pain, shortness of breath, or fatigue.? Patient did state that he did put on his CPAP because he did know why he was not feeling good.? He reported breathing into cold sweat and he thought he was having a heart attack.? He had nausea and vomited once.? Patient reported being told by his doctor's office that he might have a urine infection however they reportedly planned to watch his urine.? He denied urine cloudiness or odor.? He has been voiding every 1 to 1-1/2 hours and does not fully empty his bladder.? He denied dysuria.? He sees Dr. Israel for BPH.? CT of the abdomen pelvis showed a prostate of 7.8 cm with no hydronephrosis.? UA was positive for nitrates, trace leukocyte esterase, and WBC 10-15.?CT also suggested constipation, he had a small BM the day of admission.? He takes regular stool softeners, but felt like his stomach was harder than normal.? He denied abdominal pain, vision changes, headaches, hearing changes, syncope or falls.? He has chronic unchanged dizziness. In the ED, he was febrile 102.6, tachycardia 101, tachypnea 22, with stable BP. He was treated with IV Zofran, PO acetaminophen, 1 liter NS fluids and Rocephin 1 gram IV. Patient was admitted to the medical floor and continued on IV Rocephin. He was started on colace BID and miralax daily with good response. He was tolerating regular food and had no further nausea or emesis. Urology was consulted and resumed the patient's tamsulosin. He is to follow up with Urology outpatient. The patient reported significant imp
--- NOTE | 2021-11-02 15:47 | WPDCDIQUERY2 ---
CDI Query Clarification Request 11/01 ER physician documented: Discharge Clinical Impression: ?Pyelonephritis, Fever, Enlarged prostate 11/01 Urology documented: Pyelonephritis: ?Code(s): N12 - Tubulo-interstitial nephritis, not specified as acute or chronic ?Status:?Acute ?Assessment and Plan: Continue IV antibiotics, patient is eager to go home, unfortunately I encouraged him to stay another day until we are able to get some culture results back. He understands and agrees. Tailor antibiotics to culture results. Ok to discharge home when fever free after 24 hours and culture sensitivities are reported. Follow up with Dr. Israel after discharge. NO further evaluation needed at this rut Please clarify if diagnosis: Pyleonephritis has been ruled in or ruled out. If ruled in please add to problem list. <Samia Damico - Last Filed: 11/02/21 15:50> Provider Comments Pyelonephritis ruled in. <Kenya Kidd APRN - Last Filed: 11/02/21 16:51>
== END 2021-11-02 11:44 | disposition home or self-care (01) ==
LOC: ANHED 11-01 02:12 → ANH3MEDSUR 11-01 04:27
PROVIDERS: Nurse Practitioner; Admitting Provider Internal Medicine; Emergency Provider Emergency Medicine; PCP Family Medicine; Visit Provider Nurse Practitioner Family
DX: A41.9 Sepsis, unspecified organism (principal); N12 Tubulo-interstitial nephritis, not specified as acute or chronic; N40.0 Benign prostatic hyperplasia without lower urinary tract symptoms; Z79.899 Other long term (current) drug therapy; R00.0 Tachycardia, unspecified; I45.10 Unspecified right bundle-branch block; R50.9 Fever, unspecified; J98.11 Atelectasis; E66.9 Obesity, unspecified; Z68.30 Body mass index [BMI] 30.0-30.9, adult; K21.9 Gastro-esophageal reflux disease without esophagitis; R35.0 Frequency of micturition; R39.15 Urgency of urination; B96.20 Unspecified Escherichia coli [E. coli] as the cause of diseases classified elsewhere; K59.00 Constipation, unspecified; R35.1 Nocturia; K44.9 Diaphragmatic hernia without obstruction or gangrene; G62.9 Polyneuropathy, unspecified; Z20.822 Contact with and (suspected) exposure to COVID-19; Z87.442 Personal history of urinary calculi; Z87.440 Personal history of urinary (tract) infections; Z79.82 Long term (current) use of aspirin
CPT/HCPCS: 36415; 71046; 74177; 80053; 81001; 83605; 83690; 84484; 85025; 85055; 85610; 85730; 86140; 87040; 87077; 87086; 87186; 93005; 96365; 96366; 96372; 96375; 99285; A9270; C9803; G0378; J0131; J0696; J1650; J2405; J7030; Q9967; U0003; U0005

== ENCOUNTER 2022-02-11 08:16 | Outpatient (CLI) | payer MEDICARE, SELFPAY ==
--- NOTE | ~2022-02-11 | CT_ITS ---
EXAMINATION: CT abdomen pelvis wo/w con DATE: 02/11/2022 09:12 INDICATION: Gross hematuria TECHNIQUE: Computed tomography (CT) of the abdomen and pelvis was performed without intravenous contr ast. CT of the abdomen and pelvis was then performed with a total of 130 mL Omnipaque 350 intravenous contrast using a double-bolus technique for simultaneous opacification of the renal parenchyma and r enal collecting system. The dose-length product (DLP) was 2010.73 mGy-cm. Automated exposure control and iterative reconstruction technique were employed. COMPARISON: 11/01/2021 FINDINGS: Minimal dependent atelectasis is present in the lung bases. The heart size is normal. There is a small sliding hiatal hernia. Cysts of the liver measure up to 15 mm. The gallbladder is surgica lly absent. The spleen and pancreas are normal. There is a 12 mm low-attenuation mass of the right ad renal gland, consistent with an adenoma. The left adrenal gland is unremarkable. Small nonobstructing stones of the left kidney measure up to 2 mm. There are peripelvic cysts of the kidneys. There is ch ronic, mild to moderate right hydroureter. No suspicious renal or urothelial lesion seen. There is ma rked enlargement of the prostate. There is calcified atherosclerosis of the aorta and many of the oth er arteries. No pathologically enlarged abdominal or pelvic lymph nodes are identified. There is no f ree intraperitoneal gas or evidence of bowel obstruction. The appendix is normal. There is severe lum bar spondylosis. IMPRESSION: 1. Marked enlargement of the prostate with chronic mild to moderate right hydroureter. No suspicious renal or urothelial lesion identified. 2. Nonobstructing left nephrolithiasis. Reviewed, dictated and finalized at location B. NEYMAN OPERATOR ASSISTANT IMPRESSION: 1. Marked enlargement of the prostate with chronic mild to moderate right hydro ureter. No suspicious renal or urothelial lesion identified. 2. Nonobstructing left nephrolithiasis.
--- NOTE | ~2022-02-11 | XR_ITS ---
Supine views of the abdomen Clinical history: Hematuria, bladder stone COMPARISON: 03/02/2007 Findings: Bowel gas pattern is nonspecific. No evidence for obstruction or free air. Cholecystectomy clips present. Pelvic phleboliths present. No definite bladder or renal stones seen. Osseous structur es are intact. Impression: No definite bladder or renal stones seen. Renal evaluation somewhat suboptimal due to extensive bowel contents. Reviewed, dictated and finalized at location . X RAY CONTROL EQUIPMENT REPAIRER Impression: No definite bladder or renal stones seen. Renal evaluation somewhat suboptimal due to extensive bowel contents.
[2022-02-11 08:53] LABS: Estimated Glomerular Filt Rate > 60
== END 2022-02-11 08:17 | disposition home or self-care (01) ==
PROVIDERS: PCP Family Medicine; Visit Provider Nurse Practitioner Adult Health
DX: R31.0 Gross hematuria (principal); N40.0 Benign prostatic hyperplasia without lower urinary tract symptoms; N13.4 Hydroureter; N20.0 Calculus of kidney
CPT/HCPCS: 74018; 74178; Q9967

== ENCOUNTER 2022-02-16 08:18 | Emergency (ER) | payer MEDICARE, SELFPAY ==
[2022-02-16 08:37] VITALS: BP 156/81; PULSE 78; RESP 16; TEMP 36.4; O2SAT 98
--- NOTE | 2022-02-16 08:45 | ED.UPPEXIN ---
HPI - Extremity Injury (Upper) General Chief Complaint: Extremity Injury, Upper Stated Complaint: Lt 4TH finger injury Time Seen by Provider: 02/16/22 08:45 Source: patient, RN notes reviewed and old records reviewed Mode of arrival: ambulatory Limitations: no limitations History of Present Illness HPI narrative: 82-year-old male who presents to [facility] with complaints of having injury to the tip of his left 4th finger which occurred on Monday when he slammed it in a door.Patient has small healing flap type of laceration to the palmar tip of his left 4th finger. Patient reports that his tetanus is up to date just wanted to make sure it was healing properly and find out how to care for the wound.Patient has no redness or any drainage of wound, has been cleaning with soap and water and putting Neosporin ointment to wound. MD complaint: injury to: left and finger (4th) Onset (ago): day(s) (3 days ago) Other injuries: none Severity scale (1-10): 2 Related Data Home Medications Medication Instructions Recorded Confirmed aspirin 81 mg tablet,delayed 81 mg PO DAILY 12/18/18 02/16/22 release calcium carbonate 500 mg-vitamin 1 tablet PO DAILY 12/18/18 02/16/22 D3 10 mcg (400 unit) tablet terbinafine HCl 250 mg tablet 250 mg PO DAILY 08/25/21 02/16/22 Allergies Allergy/AdvReac Type Severity Reaction Status Date / Time No Known Allergies Allergy Unknown Verified 02/16/22 08:28 Review of Systems Review of Systems: CONSTITUTIONAL: Denies fever, chills, or sweats. EYES: Denies visual changes, redness, or discharge. ENT: Denies rhinorrhea, congestion, sore throat, or otalgia. CARDIOVASCULAR: Denies chest pain, palpitations, or edema. RESPIRATORY: Denies cough or dyspnea. GASTROINTESTINAL: Denies abdominal pain, nausea, vomiting, or diarrhea. GENITOURINARY: Denies dysuria or hematuria. SKIN: Denies rash or itching.healing laceration to the 4th left distal finger,estrada aspect. MUSCULOSKELETAL: Denies back pain, joint pain, or myalgia. NEUROLOGIC: Denies headache, numbness, or weakness. PSYCHIATRIC: Denies anxiety or depression. All systems reviewed & are unremarkable except as noted in HPI and below [facility] Past Medical History Medical History (Updated 02/17/22 @ 00:01 by Emelyn Munoz) Bladder stone BPH (benign prostatic hyperplasia) GERD (gastroesophageal reflux disease) Joint effusion Kidney stones Obesity PAT (paroxysmal atrial tachycardia) Peripheral polyneuropathy UTI (urinary tract infection) Surgical History Surgical History History of arthroscopic knee surgery History of cholecystectomy History of removal of pigmented skin lesion multiple sites History of tonsillectomy Family History Family History Sibling Family history of malignant neoplasm Mother Family history of malignant neoplasm Father Family history of lung cancer Heart disease Cerebrovascular accident Other Hypertension Social History Social History Social History: the patient lives with his Katja. She is a durable power contracts attorney for healthcare. The patient desires to be a full code. 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 Lifelong nonsmoker. He does not use any illicit drugs, marijuana or alcohol. 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
== END 2022-02-16 09:06 | disposition home or self-care (01) ==
PROVIDERS: Emergency Provider Registered Nurse; PCP Family Medicine
DX: S61.215A Laceration without foreign body of left ring finger without damage to nail, initial encounter (principal); X58.XXXA Exposure to other specified factors, initial encounter; N40.0 Benign prostatic hyperplasia without lower urinary tract symptoms; K21.9 Gastro-esophageal reflux disease without esophagitis; E66.9 Obesity, unspecified; Z68.30 Body mass index [BMI] 30.0-30.9, adult; G62.9 Polyneuropathy, unspecified; Z79.82 Long term (current) use of aspirin
CPT/HCPCS: 99212; G0463

== ENCOUNTER 2022-07-09 09:52 | Outpatient (CLI) | payer MEDICARE, SELFPAY ==
--- NOTE | ~2022-07-09 | CT_ITS ---
EXAMINATION: CT abdomen pelvis wo con DATE: 07/09/2022 10:28 INDICATION: Low abdominal pain. Dysuria. TECHNIQUE: Computed tomography (CT) of the abdomen and pelvis was performed without intravenous contr ast. Automated exposure control and iterative reconstruction technique were employed. The dose-length product was 778.14 mGy-cm. COMPARISON: CT abdomen and pelvis 02/11/2022 FINDINGS: The visualized portions of the lung bases demonstrate mild atelectasis. No pleural effusion . The heart size is normal. There are coronary artery calcifications. No pericardial effusion. There is a small sliding hiatal hernia. There are cysts in the liver measuring up to 15 mm. There are hutton es of cholecystectomy. The spleen, pancreas, adrenal glands, and right kidney are normal. There is ch ronic right hydroureter. There are 4 stones in left kidney measuring up to 3 mm. The prostate is annamaria rely enlarged. There are no dilated loops of bowel. The appendix is normal. There are no pathological ly enlarged lymph nodes. There is calcified atherosclerosis of the aorta and many of the other arteri es. There is no free intraperitoneal fluid. There are bridging endplate osteophytes at multiple level s in the spine, consistent with diffuse idiopathic skeletal hyperostosis (DISH). There is severe lowe r lumbar spondylosis. IMPRESSION: 1. Small sliding hiatal hernia. 2. Severely enlarged prostate. 3. Chronic right hydroureter. 4. Nonobstructing left kidney stones. Reviewed, dictated and finalized at location A.
== END 2022-07-09 09:53 | disposition home or self-care (01) ==
PROVIDERS: PCP Family Medicine; Visit Provider Nurse Practitioner
DX: R10.30 Lower abdominal pain, unspecified (principal); K44.9 Diaphragmatic hernia without obstruction or gangrene; N40.0 Benign prostatic hyperplasia without lower urinary tract symptoms; N13.4 Hydroureter; N20.0 Calculus of kidney
CPT/HCPCS: 74176

== ENCOUNTER 2023-07-18 09:26 | Outpatient (CLI) | payer MEDICARE, SELFPAY | END 2023-07-18 09:27 | disposition home or self-care (01) | LOC: ANHAUDASC 09:26 | PROVIDERS: PCP Family Medicine; Visit Provider Physician Assistant | DX: H90.3 Sensorineural hearing loss, bilateral (principal) | CPT/HCPCS: 92557; 92567 ==

== ENCOUNTER 2024-02-05 15:11 | Outpatient (CLI) | payer MEDICARE, SELFPAY ==
--- NOTE | ~2024-02-05 | XR_ITS ---
XR knee LT 3V Ordering provider: Marisol Lemus PA-C History: . M25.552 - Pain in left hip . Comparison: None. FINDINGS: BONES: No acute fracture or dislocation. JOINT SPACES: Severe Narrowing of the medial compartment. Marginal osteophytes in the patella. SOFT TISSUES: Normal. IMPRESSION: No acute osseous abnormality left knee. Severe osteoarthritic changes. Reviewed, dictated and finalized at location A. OR LABEL SPECIALIST
--- NOTE | ~2024-02-05 | XR_ITS ---
XR hip LT 2V w AP pelvis Ordering provider: Marisol Lemus PA-C History: . M25.552 - Pain in left hip . Comparison: None. FINDINGS: BONES: No acute fracture or dislocation. HIP JOINT SPACES: Bilateral mild osteoarthritic changes. SACROILIAC JOINT SPACES/LUMBAR SPINE: The sacroiliac joint spaces are normal. Mild degenerative hutton es of the visualized lower lumbar spine. PUBIC SYMPHYSIS: Normal. SOFT TISSUES: Normal. IMPRESSION: No acute osseous abnormality pelvis and left hip. Reviewed, dictated and finalized at location A. INE PIE MAKER
== END 2024-02-05 15:12 | disposition home or self-care (01) ==
LOC: MICIMG 15:12
PROVIDERS: PCP Family Medicine; Visit Provider Physician Assistant Medical
DX: M17.12 Unilateral primary osteoarthritis, left knee (principal); M25.552 Pain in left hip
CPT/HCPCS: 73502; 73562

== ENCOUNTER 2024-06-09 19:59 | Emergency (ER) | payer MEDICARE, SELFPAY ==
--- NOTE | 2024-06-09 20:02 | ED_ITS ---
HPI - Male Genitourinary General Chief complaint: Urogenital-Male Stated complaint: Uti Symptoms Source: patient and RN notes reviewed Mode of arrival: ambulatory Limitations: no limitations History of Present Illness HPI Narrative: 84 y/o male with hx UTIs, renal stones, presented for c/o fever up to 102 today, and foul smelling cloudy urine today. Endorses concern for UTI. States he follows with Dr Israel for urology, and has an antibiotic to take if he feels he is developing a UTI. Took Tylenol for fever. He has not started the antibiotics. denies hematuria, nausea, vomiting, abdominal pain, flank pain, constipation, diarrhea, fevers or chills. Related Data Home Medications ?Medication ?Instructions ?Recorded ?Confirmed ?Last Taken ?Type aspirin 81 mg tablet,delayed 81 mg PO DAILY 12/18/18 02/25/24 10/23/19 History release calcium 500 mg (as 1 tablet PO DAILY 12/18/18 02/05/24 10/24/19 History carbonate)-vitamin D3 10 mcg (400 unit) tablet tamsulosin 0.4 mg capsule 0.4 mg PO DAILY 02/05/24 02/25/24 Unknown History Allergies Allergy/AdvReac Type Severity Reaction Status Date / Time No Known Allergies Allergy Unknown Verified 06/09/24 20:01 Review of Systems Review of Systems: per [facility] Past Medical History Medical History (Updated 06/09/24 @ 20:19 by Magalys Payne, HANNAH) Constipation Joint effusion Obesity Bladder stone BPH (benign prostatic hyperplasia) GERD (gastroesophageal reflux disease) UTI (urinary tract infection) Peripheral polyneuropathy Kidney stones PAT (paroxysmal atrial tachycardia) Surgical History Surgical History History of removal of pigmented skin lesion multiple sites History of arthroscopic knee surgery History of cholecystectomy History of tonsillectomy Family History Family History Sibling Family history of malignant neoplasm Mother Family history of malignant neoplasm Father Family history of lung cancer Heart disease Cerebrovascular accident Other Hypertension Social History Social History Social History: the patient lives with his Katja. She is a durable power workers compensation attorney for healthcare. The patient desires to be a full code. 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 Lifelong nonsmoker. He does not use any illicit drugs, marijuana or alcohol. 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 Please see nursing chart for further information. There is no relevant family history pertinent to the presenting complaint Exam Narrative: GENERAL: Well-appearing and in no acute distress. ENT: Mucous membranes pink and moist. NECK: Normal AROM. CHEST: No respiratory distress. Clear to auscultation. HEART: Regular rate and rhythm. ABDOMEN: Soft, nontender, nondistended, normal active bowel sounds. No CVA tenderness SKIN: Warm, dry, no rash. NEURO: No focal deficits. Alert and oriented x3. Gait steady. PSYCH: Normal affect. Course Course Emergency Course: Patient is aware of diagnosis, understands and agrees to treatment plan. A nticipatory guidance given. Patient agrees to follow-up as directed and is aware of reasons to seek care at the emergency department. Portions of this record may have been created with voice recognition software Level of Care: Express Care Visit Vital Signs Vital signs: Reviewed MDM - Male Genitourinary MDM Narrative Medical decision making narrative: Discussed physical exam findings and urine dip. Pt has antibiotic as previously prescribed by urologist if symptoms of UTI develop, he is advised to start it today, and follow up in the morning. Will continue Tylenol. Advised supportive measures and signs/symptoms to go to the ER at length. Pt is appropriate for outpt treatment and f/u. Differential Diagnosis Differential diagnosis: Likely urinary tract infection and urethritis Discharge Plan Discharge Clinical Impression: Urinary tract infection Patient Disposition: Home Condition: Stable Instructions: Antibiotic Form, Urinary Tract Infection in Men (ED) Additional Instructions: Take the antibiotic as prescribed previously by your established urologist Call them in the morning to schedule an appointment. The urine will be sent of for a culture to identify what type of bacteria is causing your infection. If the culture shows that the antibiotic will not get rid of your infection, you will be notified and a new antibiotic will be called in for you. Increase water intake you will need to follow up with your PCP Go to the ER for any worsening symptoms or concerns Patient Language: Armenian Prescriptions: No Action aspirin 81 mg tablet,delayed release (DR/EC) 81 mg PO DAILY calcium carbonate-vitamin D3 500 mg(1,250mg) -400 unit tablet 1 tablet PO DAILY tamsulosin 0.4 mg capsule 0.4 mg PO DAILY flecainide 100 mg tablet 100 mg PO Q12H Qty: 60 3RF (DME) BD SafetyGlide Syringe 3 mL 23 x 1 syringe See Rx Instructions .ROUTE .MEDSUPPLY Qty: 50 0RF Rx Instructions: use with testosterone q2 weeks testosterone cypionate 200 mg/mL oil 300 mg IM .Q2WEEK Qty: 10 0RF finasteride 5 mg tablet See Rx Instructions .ROUTE .COMPLEX Qty: 90 0RF Dose Instruction: TAKE 1 TABLET BY MOUTH EVERY DAY Rx Instructions: TAKE 1 TABLET BY MOUTH EVERY DAY Follow-up/Referrals: PHYSICIAN,ROCKET PROPELLANT PLANT SUPERVISOR [Primary Care Provider] - Time of Disposition: 20:19
[2024-06-09 20:05] VITALS: BP 155/70; PULSE 104; RESP 20; TEMP 37.6; O2SAT 95
[2024-06-09 20:13] LABS: EDUAAPPEAR Clear; EDUABILI Negative (Negative); EDUABLOOD 1+ (Negative); EDUACOLOR1 Yellow; EDUAGLUCOSE Negative (Negative); EDUAKETONE Negative (Negative); EDUALEUKO 1+ (Negative); EDUANITRATE Positive (Negative); EDUAPH 5.5; EDUAPROTEIN 2+ (Negative); EDUASPGRAVITY 1.025
== END 2024-06-09 20:20 | disposition home or self-care (01) ==
PROVIDERS: Emergency Provider Nurse Practitioner Family
DX: N39.0 Urinary tract infection, site not specified (principal); N40.0 Benign prostatic hyperplasia without lower urinary tract symptoms; K21.9 Gastro-esophageal reflux disease without esophagitis; G62.9 Polyneuropathy, unspecified; E66.9 Obesity, unspecified; Z68.30 Body mass index [BMI] 30.0-30.9, adult; Z79.82 Long term (current) use of aspirin
CPT/HCPCS: 81003; 87086; 87186; 99213; G0463

== ENCOUNTER 2024-12-27 22:44 | Inpatient (IN) | payer MEDICARE, SELFPAY ==
[2024-12-27] VITALS (7 sets, daily range): BP systolic 137; BP diastolic 74; PULSE 97–108; RESP 15–27; TEMP 39.1; O2SAT 91–95
--- NOTE | ~2024-12-27 | CT_ITS ---
CT ABDOMEN AND PELVIS WITHOUT CONTRAST Clinical History: UTI, hx of kidney stones Comparison: 07/09/2022 Technique: Unenhanced axial images lung bases to symphysis pubis Coronal, sagittal reformats CT images acquired with automatic exposure control for dose reduction DLP: 400 mGy-cm Findings: Without intravenous contrast, sensitivity for detecting visceral parenchymal abnormalities decreased. Lung bases: Bibasilar atelectasis. Visualized heart and pericardium: Enlarged. Coronary artery calcification. Liver: A few cystic foci. Gallbladder: Removed. Spleen: Unremarkable. Pancreas: Unremarkable. Adrenal glands: Small right adenoma. Kidneys: Right kidney- mild hydronephrosis and hydroureter. No renal stones. Parapelvic cyst. Left kidney- No hydronephrosis. Small stones. Parapelvic cysts. Distal esophagus/stomach: Small hiatal hernia. Small bowel loops: Normal caliber and wall thickness. Colon: Normal caliber and wall thickness. Normal RLQ appendix. Nodes: No enlarged nodes. Peritoneum: No ascites. No free intraperitoneal air. Urinary bladder: Unremarkable. Prostate: Enlarged. Bones: No acute bony abnormality. Soft tissues: Unremarkable. Unopacified abdominal aorta: No aneurysmal dilatation. IMPRESSION: 1. Small stones left kidney. No hydronephrosis. 2. Chronic hydronephrosis/ureter and kidney. 3. Prostatomegaly. 4. Additional findings as above. Reviewed, dictated and finalized at location R. CE COMMUNICATION PROFESSOR
--- NOTE | ~2024-12-27 | XR_ITS ---
Examination: XR chest 1V portable Clinical History: sob Comparison: 11/01/2021 Technique: Portable AP Findings: Cardiac silhouette enlarged. Lungs clear. No acute bony abnormality. IMPRESSION: 1. No acute cardiopulmonary findings given portable technique. Reviewed, dictated and finalized at location R. ATION DEAN
--- NOTE | 2024-12-27 22:54 | ECG_ITS ---
Test Date: 2024-12-27 22:51:17 Measurements Intervals [place] Rate: 107 P: 0 MN: 0 QRS: 82 QRSD: 164 T: 38 QT: 380 QTc: 509 Interpretive Statements ATRIAL FLUTTER/TACHYCARDIA WITH RAPID VENTRICULAR RESPONSE RIGHT BUNDLE BRANCH BLOCK Electronically Signed On 12-28-2024 10:53:04 MAINTENANCE PERSON by Srinivas Joseph D.O
[2024-12-27 23:03] LABS: Hematocrit 49.2 % (42.0-52.0); Hemoglobin 16.9 g/dL (14.0-18.0); Immature Granulocyte Percent A 0.3 % (0-0.5); Lymphocytes Absolute Auto 0.32 K/mm3 (0.9-3.2); Mean Corpuscular HGB Conc 34.3 g/dl (32-36); Mean Corpuscular Hemoglobin 31.5 pg (26-34); Mean Corpuscular Volume 91.8 fl (80-100); Nucleated Red Blood Cells Absolute Auto 0.000 K/mm3 (0.0-0.012); Nucleated Red Blood Cells Perc 0.0 % (0.0-0.2); Platelet Count Result 131 k/mm3 (150-375); Red Blood Count 5.36 M/mm3 (4.6-6.20); White Blood Count 11.8 K/mm3 (4.5-10.0)
--- NOTE | 2024-12-27 23:14 | ED.GENADULT ---
HPI - General Adult General Chief complaint: Fever Stated complaint: Fever, n/v since 1900 Time Seen by Provider: 12/27/24 22:55 History of Present Illness HPI narrative: This is an 84-year-old male presenting ED with a chief complaint of fevers. Patient says that 5:30 p.m. while at [employer] he started to not feel well. He then went home and took a nap, however woke with fevers and chills and then had an episode of nausea and vomiting. Patient has chronic UTIs and he currently undergoing treatment Bactrim. He denies chest pain, difficulty breathing, abdominal pain flank pain. Related Data Home Medications ?Medication ?Instructions ?Recorded ?Confirmed ?Last Taken ?Type aspirin 81 mg tablet,delayed 81 mg PO DAILY 12/18/18 10/02/24 10/23/19 History release calcium 500 mg (as 1 tablet PO DAILY 12/18/18 10/02/24 10/24/19 History carbonate)-vitamin D3 10 mcg (400 unit) tablet tamsulosin 0.4 mg capsule 0.4 mg PO DAILY 02/05/24 10/02/24 Unknown History Allergies Allergy/AdvReac Type Severity Reaction Status Date / Time No Known Allergies Allergy Unknown Verified 10/02/24 13:03 [facility] Past Medical History Medical History Constipation Joint effusion Obesity Bladder stone BPH (benign prostatic hyperplasia) GERD (gastroesophageal reflux disease) UTI (urinary tract infection) Peripheral polyneuropathy Kidney stones PAT (paroxysmal atrial tachycardia) Surgical History Surgical History History of removal of pigmented skin lesion multiple sites History of arthroscopic knee surgery History of cholecystectomy History of tonsillectomy Family History Family History Sibling Family history of malignant neoplasm Mother Family history of malignant neoplasm Father Family history of lung cancer Heart disease Cerebrovascular accident Other Hypertension Social History Social History Social History: the patient lives with his Katja. She is a durable power litigation attorney for healthcare. The patient desires to be a full code. 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 Lifelong nonsmoker. He does not use any illicit drugs, marijuana or alcohol. 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 Head: atraumatic. EYES: EOMI, NOSE: Atraumatic NECK: Trachea midline RESPIRATORY: No increased rate of breathing clear to auscultation CARDIOVASCULAR: Tachycardic ABDOMINAL: Non-distended, soft nontender no guarding or rebound no flank pain MUSCULOSKELETAl: No obvious deformities NEURO: Alert. Moving 4/4 extremities SKIN:: Warm, dry. Normal color PSYCHIATRIC: Normal affect Course Vital Signs Vital signs: Vital Signs Temperature 102.3 F H 12/27/24 22:40 Pulse Rate 107 H 12/27/24 22:40 Respiratory Rate 27 H 12/27/24 22:40 Pulse Oximetry 92 12/27/24 22:40 Oxygen Delivery Room Air 12/27/24 22:40 Temperature 102.3 F H 12/27/24 22:40 Pulse Rate 85 12/28/24 01:59 Respiratory Rate 23 H 12/28/24 01:59 Blood Pressure 138/68 12/28/24 01:59 Pulse Oximetry 91 12/28/24 01:59 Oxygen Delivery Room Air 12/27/24 22:40 Medical Decision Making [facility] Narrative Medical decision making narrative: -Course:This is an 84-year-old male presenting with fevers. On arrival he was tachycardic and febrile to 102.3. Sepsis workup obtained. Patient given 1 L LR while awaiting completion of his workup. Workup significant for urinary tract infection. Review of previous cultures shows E coli that is sensitive ceftriaxone. Patient started on ceftriaxone. White count 11.8. Lactic 2.1. Blood pressure at baseline. patient's history of kidney stones a CT abdomen pelvis ordered to further evaluate. preliminary read of the CT did not reveal any kidney stones. It showed mild right-sided hydronephrosis which is chronic after review of previous CT scans. Patient will be admitted the hospital for further management his sepsis due to UTI. -DDX includes but is not limited to: UTI infected stone sepsis pneumonia viral syndrome Vital Signs Vital Signs: Vital Signs Temperature 102.3 F H 12/27/24 22:40 Pulse Rate 107 H 12/27/24 22:40 Respiratory Rate 27 H 12/27/24 22:40 Pulse Oximetry 92 12/27/24 22:40 Oxygen Delivery Room Air 12/27/24 22:40 Temperature 102.3 F H 12/27/24 22:40 Pulse Rate 85 12/28/24 01:59 Respiratory Rate 23 H 12/28/24 01:59 Blood Pressure 138/68 12/28/24 01:59 Pulse Oximetry 91 12/28/24 01:59 Oxygen Delivery Room Air 12/27/24 22:40 Lab Data 12/27/24 22:56 12/27/24 22:56 Labs: Lab Results 12/27/24 12/27/24 12/27/24 Range/Units 22:56 22:59 23:16 WBC 11.8 H (4.5-10.0) K/mm3 RBC 5.36 (4.6-6.20) M/mm3 Hgb 16.9 (14.0-18.0) g/dL Hct 49.2 (42.0-52.0) % MCV 91.8 (80-100) fl MCH 31.5 (26-34) pg MCHC 34.3 (32-36) g/dl RDW 13.7 (11.5-14.5) % Plt Count 131 L (150-375) k/mm3 MPV 9.1 (7.4-10.4) fl Immature Gran % (Auto) 0.3 (0-0.5) % Neut % (Auto) 89.0 H (45.5-73.1) % Lymph % (Auto) 2.7 L (18.3-44.2) % [place] % (Auto) 7.0 (2.6-8.5) % Eos % (Auto) 0.9 (0-4.4) % Baso % (Auto) 0.1 L (0.2-1.2) % Lymph # (Auto) 0.32 L (0.9-3.2) K/mm3 [place] # (Auto) 0.8 H (0.1-0.6) K/mm3 Eos # (Auto) 0.1 (0-0.3) K/mm3 Baso # (Auto) 0.0 (0.0-0.1) K/mm3 Abs Immat Gran (auto) 0.03 (0.00-0.031) K/mm3 Absolute Neuts (auto) 10.5 H (1.3-6.7) K/mm3 Absolute Nucleated RBC 0.000 (0.0-0.012) K/mm3 Nucleated RBC % 0.0 (0.0-0.2) % PT 14.0 (11.1-14.7) Seconds INR 1.1 APTT 28.0 (22.3-36.8) Seconds Sodium 136 L (137-145) mmol/L Potassium 4.2 (3.4-5.0) mmol/L Chloride 102 (98-107) mmol/L Carbon Dioxide 25 (22-30) mmol/L Anion Gap 9 (4-12) mmol/L BUN 19 (9-20) mg/dL Creatinine 0.94 (0.7-1.3) mg/dL Estim Creat Clear Calc Not Reportable Estimated GFR > 60 (59 - ) Glucose 114 H (65-110) mg/dL Lactic Acid 2.1 H (0.7-2.0) mmol/L Calcium 9.1 (8.4-10.2) mg/dL Total Bilirubin 0.8 (0.2-1.3) mg/dL AST 31 (17-59) U/L ALT 30 (6-50) U/L Alkaline Phosphatase 71 (38-126) U/L Troponin I 0.013 (0.000-0.034) ng/mL Total Protein 7.1 (6.3-8.2) g/dL Albumin 4.3 (3.5-5.1) g/dL Urine Color (Yellow) Urine Appearance (Clear) Urine pH (5.0-9.0) Ur Specific [place] (1.001-1.035) Urine Protein (Negative) mg/dL Urine Glucose (UA) (Negative) mg/dL Urine Ketones (Negative) mg/dL Ur Blood (Man) (Negative) Urine Nitrate (Negative) Urine Bilirubin (Negative) Urine Urobilinogen (<2.0) mg/dL Leukocyte Esterase Rfl (Negative) DENISE/UL Urine RBC (0-2) /hpf Urine WBC (0-3) /hpf Ur Squamous Epith Cells (Few) /hpf Urine Bacteria /hpf Urine Casts Influenza A (RT-PCR) Negative (Negative) Influenza B (RT-PCR) Negative (Negative) RSV (RT-PCR) Negative (Negative) SARS-CoV-2 RNA (RT-PCR) Negative (Negative) 12/27/24 12/28/24 Range/Units 23:26 01:10 WBC (4.5-10.0) K/mm3 RBC (4.6-6.20) M/mm3 Hgb (14.0-18.0) g/dL Hct (42.0-52.0) % MCV (80-100) fl MCH (26-34) pg MCHC (32-36) g/dl RDW (11.5-14.5) % Plt Count (150-375) k/mm3 MPV (7.4-10.4) fl Immature Gran % (Auto) (0-0.5) % Neut % (Auto) (45.5-73.1) % Lymph % (Auto) (18.3-44.2) % [place] % (Auto) (2.6-8.5) % Eos % (Auto) (0-4.4) % Baso % (Auto) (0.2-1.2) % Lymph # (Auto) (0.9-3.2) K/mm3 [place] # (Auto) (0.1-0.6) K/mm3 Eos # (Auto) (0-0.3) K/mm3 Baso # (Auto) (0.0-0.1) K/mm3 Abs Immat Gran (auto) (0.00-0.031) K/mm3 Absolute Neuts (auto) (1.3-6.7) K/mm3 Absolute Nucleated RBC (0.0-0.012) K/mm3 Nucleated RBC % (0.0-0.2) % PT (11.1-14.7) Seconds INR APTT (22.3-36.8) Seconds Sodium (137-145) mmol/L Potassium (3.4-5.0) mmol/L Chloride (98-107) mmol/L Carbon Dioxide (22-30) mmol/L Anion Gap (4-12) mmol/L BUN (9-20) mg/dL Creatinine (0.7-1.3) mg/dL Estim Creat Clear Calc Estimated GFR (59 - ) Glucose (65-110) mg/dL Lactic Acid 1.3 (0.7-2.0) mmol/L Calcium (8.4-10.2) mg/dL Total Bilirubin (0.2-1.3) mg/dL AST (17-59) U/L ALT (6-50) U/L Alkaline Phosphatase (38-126) U/L Troponin I (0.000-0.034) ng/mL Total Protein (6.3-8.2) g/dL Albumin (3.5-5.1) g/dL Urine Color Yellow (Yellow) Urine Appearance Clear (Clear) Urine pH 8.0 (5.0-9.0) Ur Specific [place] 1.019 (1.001-1.035) Urine Protein Trace (Negative) mg/dL Urine Glucose (UA) Negative (Negative) mg/dL Urine Ketones Negative (Negative) mg/dL Ur Blood (Man) Negative (Negative) Urine Nitrate Positive H (Negative) Urine Bilirubin Negative (Negative) Urine Urobilinogen 1.0 (<2.0) mg/dL Leukocyte Esterase Rfl 2+ H (Negative) DENISE/UL Urine RBC 0-2 (0-2) /hpf Urine WBC >100 H (0-3) /hpf Ur Squamous Epith Cells None seen (Few) /hpf Urine Bacteria 4+ H /hpf Urine Casts 0-2 Influenza A (RT-PCR) (Negative) Influenza B (RT-PCR) (Negative) RSV (RT-PCR) (Negative) SARS-CoV-2 RNA (RT-PCR) (Negative) Discharge Plan Discharge Clinical Impression: Acute UTI, Sepsis Patient Disposition: Still a Patient Condition: Stable Patient Language: Russian Prescriptions: No Action aspirin 81 mg tablet,delayed release (DR/EC) 81 mg PO DAILY calcium carbonate-vitamin D3 500 mg(1,250mg) -400 unit tablet 1 tablet PO DAILY tamsulosin 0.4 mg capsule 0.4 mg PO DAILY flecainide 100 mg tablet 100 mg PO Q12H Qty: 60 3RF (DME) BD SafetyGlide Syringe 3 mL 23 x 1 syringe See Rx Instructions .ROUTE .MEDSUPPLY Qty: 50 0RF Rx Instructions: use with testosterone q2 weeks testosterone cypionate 200 mg/mL oil 300 mg IM .Q2WEEK Qty: 10 0RF finasteride 5 mg tablet See Rx Instructions .ROUTE .COMPLEX Qty: 90 0RF Dose Instruction: TAKE 1 TABLET BY MOUTH EVERY DAY Rx Instructions: TAKE 1 TABLET BY MOUTH EVERY DAY Follow-up/Referrals: Jamel Patel MD [Primary Care Provider, Family Practice]
[2024-12-27 23:15] LABS: Alanine Aminotransferase 30 U/L (6-50); Albumin Level 4.3 g/dL (3.5-5.1); Alkaline Phosphatase 71 U/L (38-126); Anion Gap 9 mmol/L (4-12); Aspartate Amino Transferase 31 U/L (17-59); Bilirubin,Total 0.8 mg/dL (0.2-1.3); Blood Urea Nitrogen 19 mg/dL (9-20); Calcium 9.1 mg/dL (8.4-10.2); Carbon Dioxide 25 mmol/L (22-30); Chloride 102 mmol/L (98-107); Estimated Glomerular Filt Rate > 60; Glucose 114 mg/dL (65-110); Potassium 4.2 mmol/L (3.4-5.0); Sodium 136 mmol/L (137-145); Total Protein 7.1 g/dL (6.3-8.2)
[2024-12-27] MEDS: LACTATED RINGERS 1,000 ML 999 ML IV CONT (23:19)
[2024-12-27 23:34] LABS: INR 1.1; Prothrombin Time 14.0 Seconds (11.1-14.7)
[2024-12-27 23:35] LABS: Partial Thromboplastin Time 28.0 Seconds (22.3-36.8)
[2024-12-27 23:37] LABS: Add Urine Microscopic? YES; Appearance Urine Clear (Clear); Glucose Urine UA Negative (Negative); Leukocyte Esterase Ur 2+ LEU/UL (Negative); Nitrate Urine Positive (Negative); Non Pathogenic Casts 0-2; Specific Grav Ur 1.019 (1.001-1.035)
[2024-12-27 23:38] LABS: Troponin I 0.013 ng/mL (0.000-0.034)
--- OUTSIDE RECORDS SUMMARY | 2024-12-27 23:45 | XMS_ITS | Clinical Summary ---
Author Organization [facility] [employer] Address [address] [place] [address] Care Team Providers Care Early Childhood Education Coordinator Name Role Phone Jamel Patel MD Primary Care Provider [phone] [facility],non-owned Affiliates and Associated Physician Practices is amultiple site organization consisting of ambulatory clinics and hospital sitesin [place], [place], [place]. This disclosure is being madepursuant to the Care Everywhere program and may not contain all information available regarding this patient. Last updated 17.[facility] [employer] Allergies No known active allergies Medications * Be aware that medications may not be up to date on this document. Alwaysverify current medications with the patient. finasteride (PROSCAR) 5 MG tablet DAILY. 7 Active Calcium Carb-Cholecalci ferol (CALCIUM + D3) 600-200 MG-UNIT Take by mouth DAILY. 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 Gender Identity Not on file Sexual Orientation Not on file Last Filed Vital Signs Vital Sign Reading Time Taken Comments Blood Pressure 168/74 12/05/2018 12:56 PM CDT Pulse 74 12/05/2018 12:56 PM CDT Temperature - - Respiratory Rate - - Oxygen Saturation 94% 12/05/2018 12:56 PM CDT Inhaled Oxygen Concentration - - Weight 97.1 kg (214 lb) 12/05/2018 9:31 AM CDT Height 180.3 cm (5' 11) 12/05/2018 9:31 AM CDT Body Mass Index 29.85 12/05/2018 9:31 AM CDT Plan of Treatment Health Maintenance Due Date Last Done Comments DTAP/TDAP/TD VACCINES (1 - Tdap) 01/28/1960 PNEUMOCOCCAL VACCINE 50+ (1 of 1 - PCV) 1991 ZOSTER VACCINE (1 of 2) 1991 Respiratory Syncytial Virus (RSV) Vaccine Pt: or over 60 yrs (1 - 1-dose 75+ series) 01/28/2016 DEPRESSION SCREENING 02/14/2024 MEDICARE AWV CALENDAR YEAR 2024 COVID-19 VACCINE (1 - 2024-2 6 season) 2024 INFLUENZA VACCINE (#1) 2024 11/16/2018 HEPATITIS B VACCINE Aged Out No longe r eligible based on patient's age to complete this topic HIB VACCINE Aged Out No longer eligi ble based on patient's age to complete this topic HPV VACCINE Aged Out No longer eligi ble based on patient's age to complete this topic MENINGOCOCCAL (Group B) VACC INE SHARED DECISION-MAKING Aged Out No longer eligibl e based on patient's age to complete this topic MENINGOCOCCAL GROUPS A/C/Y/W VACCINE Aged Out No longer eligible b ased on patient's age to complete this topic Insurance [employer] AENA MEDICARE ADV Care Teams Early Childhood Education Coordinator Relationship Specialty Start Date End Date Jamel Patel MD [address] [place] [address] PCP - General 12/05/18
--- OUTSIDE RECORDS SUMMARY | 2024-12-27 23:46 | XMS_ITS | Encounter Summary ---
Author Organization [facility] Address [address] [place] [address] Care Team Providers Care Packer Inspector Name Role Phone Jamel Patel MD Primary Care Provider [phone] Encounter Details Date Type Department Care Team (Late st Contact Info) Description 06/17/2019 Lab Requisition 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 Gender Identity Not on file Sexual Orientation Not on file documented as of this encounter Plan of Treatment Not on file documented as of this encounter Procedures Procedure Name Priority Date/Time Associated Diagnosis Comments DERMATOPATHOLOGY Routine 06/14/2019 12:0 0 AM CDT documented in this encounter Results * DERMATOPATHOLOGY (06/14/2019 12:00 AM CDT) Case Report Dermatopathology Report Case: [id number] Authorizing Provider: Clyde Orellana MD Collected: 06/14/2019 12:00 AM Ordering Location: [facility] Lab Received: 06/17/2019 10:41 AM Pathologist: Armida Rogers MD Specimen: Skin, right side neck 0 12:28 PM CDT DERMATOPATHOLOGY LABORATORY Final Diagnosis Specimen A. SKIN, right side neck: ACTINIC KERATOSIS (L57.0) 0 12:28 PM CDT DERMATOPATHOLOGY LABORATORY at 1228 CDT Clinical History R/O BCC. 0 12:28 PM CDT DERMATOPATHOLOGY LABORATORY Gross Description Specimen A: Received is one formalin filled container labeled with the patient's name and designated right side neck. The specimen consists of a shave biopsy measuring [id number]. Jar 0. 0 12:28 PM CDT DERMATOPATHOLOGY LABORATORY Microscopic Description Specimen A. SKIN, right side neck: There is focal parakeratosis. The lower half of the epidermis shows disorderly maturation of keratinocytes with nuclear pleomorphism. 0 12:28 PM CDT DERMATOPATHOLOGY LABORATORY Disclaimer An external and internal positive and negative controls are appropriate for the histochemical, immunohistochemical and immunofluorescence stain(s) in this case (if any), except where stated explicitly. The performance characteristics of the stain(s) cited in this report were developed and its performance characteristic determined by the Dermatopathology Laboratory at [facility], directed by Dr. Heriberto Mccarthy. These tests need not be, and therefore are not, approved by the [place] Food and Drug Administration. The tests are used for clinical purposes. Billing Codes Specimen Charges Stain Charges 40712 1 0 12:28 PM CDT DERMATOPATHOLOGY LABORATORY Embedded Images 0 12:28 PM CDT DERMATOPATHOLOGY LABORATORY Pathology/Cytolog y TISSUE SPECIMEN FROM SKIN / Unknown 06/14/2019 06/17/2019 10:41 AM CDT us Clyde Orellana MD LAB - PATHOLOGY/CYTOLOGY ORD ERABLES Final Result DERMATOPATHOLOGY LABORATORY [facility] - Department of Dermatology [facility] Floor Lab B [address] [phone] documented in this encounter Visit Diagnoses Not on filedocumented in this encounter Care Teams Packer Inspector Relationship Specialty Start Date End Date Jamel Patel MD [address] [place] [address] PCP - General 12/05/18 documented as of this encounter
--- OUTSIDE RECORDS SUMMARY | 2024-12-27 23:46 | XMS_ITS | Encounter Summary ---
Author Organization [facility] Address [address] [place] [address] Care Team Providers Care Imaging Analyst Name Role Phone Raul Key MD Primary Care Provider [phone] Jamel Patel MD Primary Care Provider [phone] Encounter Details Date Type Department Care Team (Late st Contact Info) Description 10/04/2017 Lab Requisition [facility] Care DermPath Lab [address] [place] [phone] Clyde Orellana MD [address] [place] [address] Social History Tobacco Use Types Packs/Day Years Used Date Smoking Tobacco: Never Smokeless Tobacco: Never Alcohol Use Standard Drinks/Week Comments No 0 (1 standard drink = 0.6 oz pur e alcohol) Sex and Gender Information Value Date Recorded Sex Assigned at Not on file 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 Gender Identity Not on file Sexual Orientation Not on file documented as of this encounter Plan of Treatment Not on file documented as of this encounter Procedures Procedure Name Priority Date/Time Associated Diagnosis Comments DERMATOPATHOLOGY Routine 10/03/2017 12:0 0 AM CDT documented in this encounter Results * DERMATOPATHOLOGY (10/03/2017 12:00 AM CDT) Case Report Dermatopathology Report Case: [id number] Authorizing Provider: Clyde Orellana MD Collected: 10/03/2017 12:00 AM Pathologist: Scott Mccarthy MD Received: 10/04/2017 12:10 PM Specimen: Skin, right lower cutaneous lip 5:09 PM CDT DERMATOPATHOLOGY LABORATORY Final Diagnosis Specimen A. 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 5:09 PM CDT DERMATOPATHOLOGY LABORATORY Gross Description Specimen A: Received is one formalin filled container labeled with the patient's name and designated right lower cutaneous lip. The specimen consists of a punch biopsy measuring [id number], bisected. Jar 0. 5:09 PM CDT DERMATOPATHOLOGY LABORATORY Microscopic Description Specimen A. SKIN, right lower cutaneous lip: Sections show a perifollicular lymphohistiocytic infiltrate. Neutrophils, histiocytes, and multinucleated giant cells are present within the dermis. There is no evidence of epithelial dysplasia or malignancy in multiple deeper sections examined. 5:09 PM CDT DERMATOPATHOLOGY LABORATORY Disclaimer An external and internal positive and negative controls are appropriate for the histochemical, immunohistochemical and immunofluorescence stain(s) in this case (if any), except where stated explicitly. The performance characteristics of the stain(s) cited in this report were developed and its performance characteristic determined by the Dermatopathology Laboratory at [facility]. These tests need not be, and therefore are not, approved by the [place] Food and Drug Administration. The tests are used for clinical purposes. Billing Codes Specimen Charges Stain Charges 48110 1 8 5:09 PM CDT DERMATOPATHOLOGY LABORATORY Embedded Images 5:09 PM CDT DERMATOPATHOLOGY LABORATORY Pathology/Cytolog y TISSUE SPECIMEN FROM SKIN / Unknown 10/03/2017 10/04/2017 12:10 PM CDT Clyde Orellana MD LAB - PATHOLOGY/CYTOLOGY ORD ERABLES Final Result DERMATOPATHOLOGY LABORATORY [facility] - Department of Dermatology [address] [place] [address], [facility] [phone] documented in this encounter Visit Diagnoses Not on filedocumented in this encounter Care Teams Imaging Analyst Relationship Specialty Start Date End Date Raul Key MD [address] [place] [address] PCP - General 01/15/16 12/04/18 Jamel Patel MD [address] [place] [address] PCP - General 12/05/18 documented as of this encounter
--- OUTSIDE RECORDS SUMMARY | 2024-12-27 23:46 | XMS_ITS | Encounter Summary ---
Author Organization [facility] Address [address] [facility] [place] [address] Care Team Providers Care General Office Worker Name Role Phone Jamel Patel MD Primary Care Provider [phone] Encounter Details Date Type Department Care Team (Late st Contact Info) Description 03/16/2022 Lab Requisition [facility] Care DermPath Lab [address] [facility] [place] [address] Clyde Orellana MD [address] [place] [address] Social History Tobacco Use Types Packs/Day Years Used Date Smoking Tobacco: Never Smokeless Tobacco: Former Chew Alcohol Use Standard Drinks/Week Comments No 0 (1 standard drink = 0.6 oz pur e alcohol) Sex and Gender Information Value Date Recorded Sex Assigned at Not on file 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 Gender Identity Not on file Sexual Orientation Not on file documented as of this encounter Plan of Treatment Not on file documented as of this encounter Procedures Procedure Name Priority Date/Time Associated Diagnosis Comments DERMATOPATHOLOGY Routine 03/15/2022 12:0 0 AM FRONT WINDOW CASHIER documented in this encounter Results * DERMATOPATHOLOGY (03/15/2022 12:00 AM FRONT WINDOW CASHIER) Case Report Dermatopathology Report Case: [id number] Authorizing Provider: Clyde Orellana MD Collected: 03/15/2022 12:00 AM Ordering Location: [facility] DermPath Lab Received: 03/16/2022 04:07 PM Pathologist: Armida Rogers MD Specimen: Skin, right post vertex 5:38 PM [facility] DERMATOPATHOLOGY LABORATORY Final Diagnosis Specimen A. 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 Please Check Margins. 5:38 PM [facility] DERMATOPATHOLOGY LABORATORY Gross Description Specimen A: Received is one formalin filled container labeled with the patients name and designated right post vertex. The specimen consists of a shave removal measuring [id number] and it is inked. Jar 0. 5:38 PM [facility] DERMATOPATHOLOGY LABORATORY Microscopic Description Specimen A. SKIN, right post vertex: The epidermis shows parakeratosis, full thickness disorderly maturation of keratinocytes, mitoses at different levels, and dyskeratotic cells. This lesion approximates the margin of the specimen. 5:38 PM [facility] DERMATOPATHOLOGY LABORATORY Disclaimer An external and internal positive and negative controls are appropriate for the histochemical, immunohistochemical and immunofluorescence stain(s) in this case (if any), except where stated explicitly. The performance characteristics of the stain(s) cited in this report were developed and its performance characteristic determined by the Dermatopathology Laboratory at [facility], directed by Dr. Heriberto Mccarthy. These tests need not be, and therefore are not, approved by the [place] Food and Drug Administration. The tests are used for clinical purposes. Billing Codes Specimen Charges Stain Charges 75349 1 5:38 PM [facility] DERMATOPATHOLOGY LABORATORY Embedded Images 5:38 PM [facility] DERMATOPATHOLOGY LABORATORY Pathology/Cytolog y TISSUE SPECIMEN FROM SKIN / Unknown 03/15/2022 03/16/2022 4:07 PM [facility] Clyde Orellana MD LAB - PATHOLOGY/CYTOLOGY ORD ERABLES Final Result DERMATOPATHOLOGY LABORATORY [facility] - Department of Dermatology [facility] [address] [facility] 3rd Floor [address] [phone] documented in this encounter Visit Diagnoses Not on filedocumented in this encounter Care Teams General Office Worker Relationship Specialty Start Date End Date Jamel Patel MD [address] [place] [address] PCP - General 12/05/18 documented as of this encounter
--- OUTSIDE RECORDS SUMMARY | 2024-12-27 23:46 | XMS_ITS | Encounter Summary ---
Author Organization [facility] Address [address] [facility] [place] [address] Care Team Providers Care Head Cleaning Porter Name Role Phone Raul Key MD Primary Care Provider [phone] Jamel Patel MD Primary Care Provider [phone] Encounter Details Date Type Department Care Team (Late st Contact Info) Description 10/24/2018 Lab Requisition [facility] Care DermPath Lab [address] [facility], [place] [phone] Clyde Orellana MD [address] [place] [address] Social History Tobacco Use Types Packs/Day Years Used Date Smoking Tobacco: Never Smokeless Tobacco: Never Alcohol Use Standard Drinks/Week Comments No 0 (1 standard drink = 0.6 oz pur e alcohol) Sex and Gender Information Value Date Recorded Sex Assigned at Not on file 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 DermPath Lab Received: 10/24/2018 01:20 PM Pathologist: Vesna Pina MD Specimen: Skin, left crura antihelicis 12:26 PM CDT DERMATOPATHOLOGY LABORATORY Final Diagnosis Specimen A. 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 12:26 PM CDT DERMATOPATHOLOGY LABORATORY Gross Description Specimen A: Received is one formalin filled container labeled with the patient's name and designated left crura antihelicis. The specimen consists of a shave biopsy measuring [id number]. Jar 0. 12:26 PM CDT DERMATOPATHOLOGY LABORATORY Microscopic Description Specimen A. SKIN, left crura antihelicis: The epidermis shows parakeratosis, full thickness disorderly maturation of keratinocytes, mitoses at different levels, and dyskeratotic cells. 12:26 PM CDT DERMATOPATHOLOGY LABORATORY Disclaimer An external and internal positive and negative controls are appropriate for the histochemical, immunohistochemical and immunofluorescence stain(s) in this case (if any), except where stated explicitly. The performance characteristics of the stain(s) cited in this report were developed and its performance characteristic determined by the Dermatopathology Laboratory at [facility], directed by Dr. Heriberto Mccarthy. These tests need not be, and therefore are not, approved by the [place] Food and Drug Administration. The tests are used for clinical purposes. Billing Codes Specimen Charges Stain Charges 31969 1 12:26 PM CDT DERMATOPATHOLOGY LABORATORY Embedded Images 12:26 PM CDT DERMATOPATHOLOGY LABORATORY Pathology/Cytolog y TISSUE SPECIMEN FROM SKIN / Unknown 10/23/2018 10/24/2018 1:20 PM CDT Clyde Orellana MD LAB - PATHOLOGY/CYTOLOGY ORD ERABLES Final Result DERMATOPATHOLOGY LABORATORY [facility] - Department of Dermatology [address] [facility] 5th Floor Lab B [address] [phone] documented in this encounter Visit Diagnoses Not on filedocumented in this encounter Care Teams Head Cleaning Porter Relationship Specialty Start Date End Date Raul Key MD [address] [place] [address] PCP - General 01/15/16 12/04/18 Jamel Patel MD [address] [place], [place] [phone] PCP - General 12/05/18 documented as of this encounter
--- OUTSIDE RECORDS SUMMARY | 2024-12-27 23:46 | XMS_ITS | Encounter Summary ---
Author Organization [facility] Address [address] [place] [address] Care Team Providers Care Spring Coiler Hand Name Role Phone Jamel Patel MD Primary Care Provider Encounter Details Date Type Department Care Team (Late st Contact Info) Description 11/17/[address] 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 - Received: 11/20/2023 11:14 AM DermPath Lab Pathologist: Scott Mccarthy MD Specimen: Skin, left proximal dorsal forearm 2:52 PM CDT DERMATOPATHOLOGY LABORATORY Final Diagnosis Specimen A. SKIN, left proximal dorsal forearm: SQUAMOUS CELL CARCINOMA, WELL DIFFERENTIATED (C44.629) NOT PRESENT AT MARGIN DERMAL SCAR (L90.5) HYPERPLASTIC (HYPERTROPHIC) ACTINIC KERATOSIS, INCIDENTAL; PRESENT AT MARGIN (L57.0) 2:52 PM CDT DERMATOPATHOLOGY LABORATORY at 1452 CDT Clinical History SCC Please check margins 2:52 PM CDT DERMATOPATHOLOGY LABORATORY Gross Description Specimen A: Received is one formalin filled container labeled with the patient's name and designated left proximal dorsal forearm. The specimen consists of a non-oriented ellipse of skin measuring [id number] mm. The epidermal surface is unremarkable. The margin is inked green. The 12 o'clock and 6 o'clock tips are submitted in cassette 1. The remainder of the ellipse is serially sectioned and submitted in cassette 2-4. Jar 0. 2:52 PM CDT DERMATOPATHOLOGY LABORATORY Microscopic Description Specimen A. SKIN, left proximal dorsal forearm: Arising in the epidermis and extending into the dermis there are irregularly shaped aggregates of keratinocytes showing evidence of premature cornification. This lesion is not present at the margin of the specimen. There are fibroblasts and collagen bundles oriented parallel to the skin surface with elongated blood vessels, some of which are oriented perpendicular to the skin surface. Away from the scar, there is hyperkeratosis alternating with parakeratosis. There is epidermal hyperplasia with disorderly maturation of keratinocytes with nuclear pleomorphism confined to the lower half of the epidermis. This lesion is present at one tip of the specimen. 2:52 PM CDT DERMATOPATHOLOGY LABORATORY Disclaimer An external and internal positive and negative controls are appropriate for the histochemical, immunohistochemical and immunofluorescence stain(s) in this case (if any), except where stated explicitly. The performance characteristics of the stain(s) cited in this report were developed and its performance characteristic determined by the Dermatopathology Laboratory at [facility], directed by Dr. Heriberto Mccarthy. These tests need not be, and therefore are not, approved by the [place] Food and Drug Administration. The tests are used for clinical purposes. Billing Codes Specimen Charges Stain Charges 37828 1 4 2:52 PM CDT DERMATOPATHOLOGY LABORATORY Embedded Images 4 2:52 PM CDT DERMATOPATHOLOGY LABORATORY Pathology/Cytolog y TISSUE SPECIMEN FROM SKIN / Unknown 11/17/2023 11/20/2023 11:14 AM CDT us Yvonne Vazquez MD LAB - PATHOLOGY/CYTOLOGY ORDERAB LES Final Result DERMATOPATHOLOGY LABORATORY [facility] - Department of Dermatology [address], [address] [phone] documented in this encounter Visit Diagnoses Diagnosis Squamous cell carcinoma of skin of left upper limb, including shoulder Squamous cell carcinoma of skin of upper limb, including shoulder documented in this encounter Care Teams Spring Coiler Hand Relationship Specialty Start Date End Date Jamel Patel MD [address] [place] [address] PCP - General 12/05/18 documented as of this encounter
--- OUTSIDE RECORDS SUMMARY | 2024-12-27 23:46 | XMS_ITS | Encounter Summary ---
Author Organization [facility] Address [address] [place] [address] Care Team Providers Care Paste Up Artist Name Role Phone Raul Key MD Primary Care Provider [phone] Jamel Patel MD Primary Care Provider [phone] Encounter Details Date Type Department Care Team (Late st Contact Info) Description 07/26/2018 Lab Requisition [facility] Care DermPath Lab [address] [facility] [place] [phone] Clyde Orellana MD [address] [place] [address] Social History Tobacco Use Types Packs/Day Years Used Date Smoking Tobacco: Never Smokeless Tobacco: Never Alcohol Use Standard Drinks/Week Comments No 0 (1 standard drink = 0.6 oz pur e alcohol) Sex and Gender Information Value Date Recorded Sex Assigned at Not on file 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 Gender Identity Not on file Sexual Orientation Not on file documented as of this encounter Plan of Treatment Not on file documented as of this encounter Procedures Procedure Name Priority Date/Time Associated Diagnosis Comments DERMATOPATHOLOGY Routine 07/25/2018 12:0 0 AM CDT documented in this encounter Results * DERMATOPATHOLOGY (07/25/2018 12:00 AM CDT) Case Report Dermatopathology Report Case: [id number] Authorizing Provider: Clyde Orellana MD Collected: 07/25/2018 12:00 AM Pathologist: Vesna Pina MD Received: 07/26/2018 12:51 PM Specimen: Skin, left neck behind left earlobe 12:19 PM CDT DERMATOPATHOLOGY LABORATORY Final Diagnosis Specimen A. SKIN, left neck behind left earlobe: HYPERPLASTIC (HYPERTROPHIC) ACTINIC KERATOSIS WITH FOLLICULAR EXTENSION (L57.0) 12:19 PM CDT DERMATOPATHOLOGY LABORATORY at 1219 CDT Clinical History R/O SCC. 12:19 PM CDT DERMATOPATHOLOGY LABORATORY Gross Description Specimen A: Received is one formalin filled container labeled with the patient's name and designated left neck behind left earlobe. The specimen consists of a shave biopsy measuring [id number]. Jar 0. 12:19 PM CDT DERMATOPATHOLOGY LABORATORY Microscopic Description Specimen A. SKIN, left neck behind left earlobe: There is hyperkeratosis alternating with parakeratosis. There is epidermal hyperplasia with disorderly maturation of keratinocytes with nuclear pleomorphism confined to the lower half of the epidermis and extending down the follicular infundibulum. 12:19 PM CDT DERMATOPATHOLOGY LABORATORY Disclaimer An external and internal positive and negative controls are appropriate for the histochemical, immunohistochemical and immunofluorescence stain(s) in this case (if any), except where stated explicitly. The performance characteristics of the stain(s) cited in this report were developed and its performance characteristic determined by the Dermatopathology Laboratory at [facility], directed by Dr. Heriberto Mccarthy. These tests need not be, and therefore are not, approved by the [place] Food and Drug Administration. The tests are used for clinical purposes. Billing Codes Specimen Charges Stain Charges 12835 1 12:19 PM CDT DERMATOPATHOLOGY LABORATORY Embedded Images 12:19 PM CDT DERMATOPATHOLOGY LABORATORY Pathology/Cytolog y TISSUE SPECIMEN FROM SKIN / Unknown 07/25/2018 07/26/2018 12:51 PM CDT Clyde Orellana MD LAB - PATHOLOGY/CYTOLOGY ORD ERABLES Final Result DERMATOPATHOLOGY LABORATORY [facility] - Department of Dermatology [address] [facility] 5th Floor Lab [address] [phone] documented in this encounter Visit Diagnoses Not on filedocumented in this encounter Care Teams Paste Up Artist Relationship Specialty Start Date End Date Raul Key MD [address] [place] [phone] PCP - General 01/15/16 12/04/18 Jamel Patel MD [address] [place] [address] PCP - General 12/05/18 documented as of this encounter
[2024-12-27 23:59] LABS: Influenza A QL RT-PCR Negative (Negative); Influenza B QL RT-PCR Negative (Negative); RSV RNA, RT-PCR Negative (Negative); SARS-CoV-2 RNA PCR Negative (Negative)
[2024-12-28] VITALS (48 sets, daily range): BP systolic 76–156; BP diastolic 52–93; PULSE 65–94; RESP 13–30; TEMP 36.2–36.8; O2SAT 89–100
[2024-12-28] MEDS: cefTRIAXone 1 GM in SODIUM CHLORIDE 0.9% IV 50 ML 100 ML IVPB ×2 (00:18→20:38)
[2024-12-28] MEDS: LACTATED RINGERS 1,000 ML 125 ML IV CONT ×2 (05:35→17:02)
--- NOTE | 2024-12-28 06:14 | PM.IMHP ---
H&P: HPI History of Present Illness Date/Time: 12/28/24 06:14 Chief Complaint: Fever, painful urination Narrative: 84-year-old male with PMH paroxysmal atrial tachycardia, BPH status post prostate surgery, bladder stone, kidney stones, GERD, history of UTI presents to [facility] ER on the night complaining of fever for 1 day. The patient was eating at [employer] for dinner any did not feel well, he went home to sleep, woke up with fever and chills, an episode of nausea and vomiting, had burning on urination. He has chronic UTIs and currently taking Bactrim. Denies shortness of breath, chest pain, diarrhea. ER evaluation demonstrates fever of 102.3? F. leukocytosis 11,800, sodium 136, lactic acid 2.1, improving to 1.3 after fluid resuscitation. Urinalysis positive for nitrates, wbc's, leukocyte esterase, 4+ bacteria. Quad viral screen negative. Previous urine culture growing E coli, resistant to fluoroquinolones and gentamicin, intermediate resistance to ampicillin sulbactam, patient started on ceftriaxone. CT abdomen and pelvis without contrast demonstrating bilateral lower lobe atelectasis, left-sided nephrolithiasis without obstruction or urolithiasis, mild right-sided hydronephrosis and hydroureter without evidence of urolithiasis, this is a chronic finding, prostatomegaly, right adrenal adenoma. Review of Systems Review of Systems: All systems reviewed & are unremarkable except as noted in HPI and below (Subjective) [facility] Past Medical History Medical History Constipation Joint effusion Obesity Bladder stone BPH (benign prostatic hyperplasia) GERD (gastroesophageal reflux disease) UTI (urinary tract infection) Peripheral polyneuropathy Kidney stones PAT (paroxysmal atrial tachycardia) Surgical History Surgical History History of removal of pigmented skin lesion multiple sites History of arthroscopic knee surgery History of cholecystectomy History of tonsillectomy Family History Family History (Updated 12/28/24 @ 05:42 by Clinton Burnham RN) Sibling Family history of malignant neoplasm Mother Family history of malignant neoplasm Father Heart disease Family history of lung cancer Cerebrovascular accident Social History Social History Social History: the patient lives with his Katja. She is a durable power traffic law attorney for healthcare. The patient desires to be a full code. 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 Lifelong nonsmoker. He does not use any illicit drugs, marijuana or alcohol. 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 Gender identity (if verbalized by the patient): Male Sexual Orientation (if Verbalized by the Patient): Straight or Heterosexual Spiritual care concerns: No Agree to blood products: Yes Meds Home Medications and Allergies Home Medications ?Medication ?Instructions ?Recorded ?Confirmed ?Type aspirin 81 mg tablet,delayed 81 mg PO DAILY 12/18/18 12/28/24 History release calcium 500 mg (as 1 tablet PO DAILY 12/18/18 12/28/24 History carbonate)-vitamin D3 10 mcg (400 unit) tablet flecainide 100 mg tablet 100 mg PO Q12H #60 tabs 01/31/19 12/28/24 Rx testosterone cypionate 200 mg/mL 300 mg (1.5 mL) IM .Q2WEEK #10 mL 07/03/20 12/28/24 Rx intramuscular oil tamsulosin 0.4 mg capsule 0.4 mg PO DAILY 02/05/24 12/28/24 History finasteride 5 mg tablet See Rx Instructions .Route 12/16/24 12/28/24 Rx .COMPLEX #90 tabs Allergies Allergy/AdvReac Type Severity Reaction Status Date / Time No Known Allergies Allergy Unknown Verified 12/28/24 05:39 Vital Signs Vital Signs - 24 hr 12/27/24 22:40 12/27/24 23:01 12/27/24 23:02 Temperature 102.3 F H Pulse Rate 107 H 105 H 104 H Respiratory Rate 27 H 17 23 H Blood Pressure 137/74 Pulse Oximetry 92 95 94 Oxygen Delivery Room Air 12/27/24 23:07 12/27/24 23:24 12/27/24 23:43 Temperature Pulse Rate 108 H 99 Respiratory Rate 18 18 17 Blood Pressure 137/74 Pulse Oximetry 92 91 91 Oxygen Delivery 12/27/24 23:45 12/28/24 00:03 12/28/24 00:15 Temperature Pulse Rate 97 94 92 Respiratory Rate 15 23 H 21 H Blood Pressure Pulse Oximetry 93 92 94 Oxygen Delivery 12/28/24 00:30 12/28/24 00:45 12/28/24 00:45 Temperature Pulse Rate 92 89 89 Respiratory Rate 22 H 20 20 Blood Pressure 137/66 Pulse Oximetry 91 90 89 L Oxygen Delivery 12/28/24 00:46 12/28/24 01:00 12/28/24 01:01 Temperature Pulse Rate 92 90 92 Respiratory Rate 21 H 25 H 24 H Blood Pressure 137/66 122/63 Pulse Oximetry 93 93 90 Oxygen Delivery 12/28/24 01:17 12/28/24 01:30 12/28/24 01:59 Temperature Pulse Rate 89 88 85 Respiratory Rate 17 21 H 23 H Blood Pressure 138/68 Pulse Oximetry 91 91 91 Oxygen Delivery 12/28/24 04:44 Temperature Pulse Rate 83 Respiratory Rate 19 Blood Pressure 153/64 H Pulse Oximetry 94 Oxygen Delivery Exam Const: General: comfortable and no acute distress Other: A&O x4 HENMT: Mouth: Yes dry mucous membranes Eyes: Pupils: Equal, round and reactive pupils present Neck: Neck: supple Resp: Effort & Inspection: normal respiratory effort Auscultation: clear to auscultation bilaterally Cardio: Rate: regular rate Rhythm: regular rhythm GI: GI Palp: Yes Soft to palpation and No Tenderness to palpation present (GI) Auscultation: normal bowel sounds Other: Distended, patient reports this to be chronic : General: Yes bladder normal to palpation Neuro: Motor exam (neuro): 5/5 motor strength present throughout Extrem: Other: Trace pitting edema bilateral lower extremities below the knees H&P: Results Labs Labs: Short CBC 12/27/24 Range/Units 22:56 WBC 11.8 H (4.5-10.0) K/mm3 Hgb 16.9 (14.0-18.0) g/dL Hct 49.2 (42.0-52.0) % Plt Count 131 L (150-375) k/mm3 BMP 12/27/24 22:56 Sodium 136 L Potassium 4.2 Chloride 102 Carbon Dioxide 25 BUN 19 Creatinine 0.94 Glucose 114 H Calcium 9.1 Cardiac Enzymes 12/27/24 Range/Units 22:56 Troponin I 0.013 (0.000-0.034) ng/mL Liver Function 12/27/24 Range/Units 22:56 Total Bilirubin 0.8 (0.2-1.3) mg/dL AST 31 (17-59) U/L ALT 30 (6-50) U/L Alkaline Phosphatase 71 (38-126) U/L Albumin 4.3 (3.5-5.1) g/dL Urine 12/27/24 Range/Units 23:26 Urine Color Yellow (Yellow) Urine Appearance Clear (Clear) Urine pH 8.0 (5.0-9.0) Ur Specific [place] 1.019 (1.001-1.035) Urine Protein Trace (Negative) mg/dL Urine Glucose (UA) Negative (Negative) mg/dL Assessment and Plan Assessment and plan (1) Acute UTI: Code(s): N39.0 - Urinary tract infection, site not specified Status: Acute (2) Sepsis without septic shock: Code(s): A41.9 - Sepsis, unspecified organism Status: Acute Plan Mr. Kelley presents with sepsis without shock as evidenced by leukocytosis, lactic acidosis and urinary tract infection. Lactic acidosis has already resolved. Patient is hemodynamically stable. Continue fluids, ceftriaxone, finasteride, tamsulosin. Follow-up urine and blood cultures. Prolonged QTC, hold flecainide for now. Full code. SCDs. Lactated Ringer infusion. History of paroxysmal atrial tachycardia. Admit to medical floor with telemetry. Hospitalist MIPS Advance Care Plan I have confirmed that the patient's Advanced Care Plan is present, code status is documented, or surrogate decision maker is listed in patient medical record.: Yes Medication Reconciliation I have utilized all available resources to obtain, update and review the patients current medications (includes all prescriptions, OTC, herbals, cannabis, and nutritional supplements).: Yes
--- NOTE | 2024-12-28 07:11 | PC.NURSE ---
breakfast ordered on pt. pt resting at this time. pt VSS
[2024-12-28] MEDS: FLECAINIDE ACETATE 100 MG TABLET PO ×2 (09:16→20:38)
[2024-12-28] MEDS: TAMSULOSIN HCL 0.4 MG CAPSULE PO (09:16)
[2024-12-28] MEDS: ASPIRIN 81 MG ENTERIC TABLET PO (09:16)
[2024-12-28] MEDS: CALCIUM/VITAMIN D 500 MG/5 MCG (200 I.U.) TABLET PO (09:17)
--- NOTE | 2024-12-28 09:40 | P.PNIM_ITS ---
Progress Note: A&P Assessment and Plan (1) Acute UTI: Code(s): N39.0 - Urinary tract infection, site not specified Status: Acute Assessment and Plan: Urinalysis positive for nitrates, wbc's, leukocyte esterase, 4+ bacteria. 12/28: Uri sx: Dysuria -Pt reports chronic hx of UTI and was taking PO Bactrim at home for UTI rx by his urologist -Continue Ceftriaxone -Pending UC (2) Sepsis without septic shock: Code(s): A41.9 - Sepsis, unspecified organism Status: Acute Assessment and Plan: Mr. Kelley presents with sepsis without shock as evidenced by leukocytosis, lactic acidosis and urinary tract infection. Lactic acidosis has already resolved. Patient is hemodynamically stable. Continue fluids, ceftriaxone, finasteride, tamsulosin. Follow-up urine and blood cultures. Prolonged QTC, hold flecainide for now. 12/28: VSS stable now -Repeat EKG today: QTc 514 -->Mag level in the AM -Continue tele -Repeat labs: WBC 11.8-->11.8, continue to trend Plan Full code. SCDs. Lactated Ringer infusion. History of paroxysmal atrial tachycardia. Admit to medical floor with telemetry for prolonged QTc. Pending UC. Time Spent With Patient Time: 35 Subjective Date/time seen: 12/28/24 1136 Interval history: Pt sitting up in bed comfortably upon my arrival. Pt continues to endorse dysuria but no other sx. Pt states that he is feeling better. Pt denies subjective fever. Review of Systems Review of Systems: All systems reviewed & are unremarkable except as noted in HPI and below (Subjective) Exam Const: General: comfortable and no acute distress Other: A&O x4 HENMT: Mouth: Yes dry mucous membranes Eyes: Pupils: Equal, round and reactive pupils present Neck: Neck: supple Resp: Effort & Inspection: normal respiratory effort Auscultation: clear to auscultation bilaterally Cardio: Rate: regular rate Rhythm: regular rhythm Other: Tele 71bpm GI: Auscultation: normal bowel sounds Other: Distended, patient reports this to be chronic. Suprapubic TTP Skin: General skin exam: normal color and no rashes or lesions noted Neuro: Cranial nerves: Yes Equal, round and reactive pupils present Motor exam (neuro): Normal motor muscle tone present throughout Sensory Exam: normal sensation Psych: Mental Status: mental status grossly normal Affect: normal affect Objective Data Vital Signs Vital Signs: Vital Signs - 24 hr 12/27/24 22:40 12/27/24 23:01 12/27/24 23:02 Temperature 102.3 F H Pulse Rate 107 H 105 H 104 H Respiratory Rate 27 H 17 23 H Blood Pressure 137/74 Pulse Oximetry 92 95 94 Oxygen Delivery Room Air 12/27/24 23:07 12/27/24 23:24 12/27/24 23:43 Temperature Pulse Rate 108 H 99 Respiratory Rate 18 18 17 Blood Pressure 137/74 Pulse Oximetry 92 91 91 Oxygen Delivery 12/27/24 23:45 12/28/24 00:03 12/28/24 00:15 Temperature Pulse Rate 97 94 92 Respiratory Rate 15 23 H 21 H Blood Pressure Pulse Oximetry 93 92 94 Oxygen Delivery 12/28/24 00:30 12/28/24 00:45 12/28/24 00:45 Temperature Pulse Rate 92 89 89 Respiratory Rate 22 H 20 20 Blood Pressure 137/66 Pulse Oximetry 91 90 89 L Oxygen Delivery 12/28/24 00:46 12/28/24 01:00 12/28/24 01:01 Temperature Pulse Rate 92 90 92 Respiratory Rate 21 H 25 H 24 H Blood Pressure 137/66 122/63 Pulse Oximetry 93 93 90 Oxygen Delivery 12/28/24 01:17 12/28/24 01:30 12/28/24 01:59 Temperature Pulse Rate 89 88 85 Respiratory Rate 17 21 H 23 H Blood Pressure 138/68 Pulse Oximetry 91 91 91 Oxygen Delivery 12/28/24 02:01 12/28/24 02:02 12/28/24 02:29 Temperature Pulse Rate 84 83 Respiratory Rate 20 15 Blood Pressure 152/69 H Pulse Oximetry 92 90 91 Oxygen Delivery 12/28/24 02:30 12/28/24 02:31 12/28/24 02:48 Temperature Pulse Rate Respiratory Rate Blood Pressure 140/66 Pulse Oximetry 92 92 95 Oxygen Delivery 12/28/24 03:43 12/28/24 03:45 12/28/24 03:47 Temperature Pulse Rate 72 70 75 Respiratory Rate 16 17 18 Blood Pressure 133/54 L Pulse Oximetry 100 Oxygen Delivery 12/28/24 04:16 12/28/24 04:31 12/28/24 04:44 Temperature Pulse Rate 83 Respiratory Rate 19 Blood Pressure 144/70 H 153/64 H 153/64 H Pulse Oximetry 94 Oxygen Delivery 12/28/24 04:47 12/28/24 05:26 12/28/24 05:39 Temperature Pulse Rate 78 Respiratory Rate 24 H Blood Pressure 153/75 H 76/66 L Pulse Oximetry 94 Oxygen Delivery 12/28/24 05:40 12/28/24 05:45 12/28/24 05:46 Temperature Pulse Rate 76 78 77 Respiratory Rate 16 24 H 24 H Blood Pressure 122/77 134/65 Pulse Oximetry 93 91 94 Oxygen Delivery 12/28/24 06:00 12/28/24 06:15 12/28/24 06:30 Temperature Pulse Rate 75 75 75 Respiratory Rate 18 17 13 Blood Pressure Pulse Oximetry 94 95 97 Oxygen Delivery 12/28/24 06:31 12/28/24 06:45 12/28/24 07:34 Temperature Pulse Rate 70 65 82 Respiratory Rate 15 17 20 Blood Pressure 156/93 H Pulse Oximetry 95 97 Oxygen Delivery 12/28/24 07:45 12/28/24 08:11 12/28/24 08:25 Temperature Pulse Rate 82 74 72 Respiratory Rate 23 H 18 20 Blood Pressure 123/52 L Pulse Oximetry 95 Oxygen Delivery 12/28/24 08:30 12/28/24 09:16 Temperature Pulse Rate 81 72 Respiratory Rate 30 H Blood Pressure 138/58 L Pulse Oximetry 95 Oxygen Delivery Intake/Output Intake/Output: Intake & Output 12/25/24 12/26/24 12/27/24 12/28/24 23:59 23:59 23:59 23:59 Intake Total 1050 Output Total 900 Balance 150 Meds/Results Medications: Active Medications Generic Name Dose Route Start Last Admin Trade Name Freq PRN Reason Stop Dose Admin Aspirin 81 mg 12/28/24 09:00 12/28/24 09:16 Aspirin 81 Mg Enteric Tablet PO 81 mg DAILY SARINA Administration Calcium Carbonate 500 mg 12/28/24 09:00 12/28/24 09:17 Calcium/Vitamin D 500 Mg/5 Mcg (200 I.U.) Tablet PO 500 mg DAILY SARINA Administration Flecainide Acetate 100 mg 12/28/24 09:00 12/28/24 09:16 Flecainide Acetate 100 Mg Tablet PO 100 mg Q12HR SARINA Administration Ceftriaxone Sodium 1 gm/ 50 mls @ 100 mls/hr 12/29/24 00:00 Sodium Chloride IVPB Q24H SARINA Lactated Ringer's 1,000 mls @ 125 mls/hr 12/28/24 03:30 12/28/24 05:35 Lr - Lactated Ringers Iv IV CONT 125 mls/hr .Q8H SARINA Administration Tamsulosin HCl 0.4 mg 12/28/24 09:00 12/28/24 09:16 Tamsulosin Hcl 0.4 Mg Capsule PO 0.4 mg DAILY SARINA Administration Radiology Results: ITS Impressions Chest X-Ray 12/28/24 07:27 IMPRESSION: 1. No acute cardiopulmonary findings given portable technique. Abdomen/Pelvis CT 12/28/24 08:21 IMPRESSION: 1. Small stones left kidney. No hydronephrosis. 2. Chronic hydronephrosis/ureter and kidney. 3. Prostatomegaly. 4. Additional findings as above. Labs Labs: Laboratory Results - last 24 hr 12/27/24 12/27/24 12/27/24 22:56 22:59 23:16 WBC 11.8 H RBC 5.36 Hgb 16.9 Hct 49.2 MCV 91.8 MCH 31.5 MCHC 34.3 RDW 13.7 Plt Count 131 L MPV 9.1 Immature Gran % (Auto) 0.3 Neut % (Auto) 89.0 H Lymph % (Auto) 2.7 L [place] % (Auto) 7.0 Eos % (Auto) 0.9 Baso % (Auto) 0.1 L Lymph # (Auto) 0.32 L [place] # (Auto) 0.8 H Eos # (Auto) 0.1 Baso # (Auto) 0.0 Abs Immat Gran (auto) 0.03 Absolute Neuts (auto) 10.5 H Absolute Nucleated RBC 0.000 Nucleated RBC % 0.0 PT 14.0 INR 1.1 APTT 28.0 Sodium 136 L Potassium 4.2 Chloride 102 Carbon Dioxide 25 Anion Gap 9 BUN 19 Creatinine 0.94 Estim Creat Clear Calc Not Reportable Estimated GFR > 60 Glucose 114 H Lactic Acid 2.1 H Calcium 9.1 Total Bilirubin 0.8 AST 31 ALT 30 Alkaline Phosphatase 71 Troponin I 0.013 Total Protein 7.1 Albumin 4.3 Urine Color Urine Appearance Urine pH Ur Specific [place] Urine Protein Urine Glucose (UA) Urine Ketones Ur Blood (Man) Urine Nitrate Urine Bilirubin Urine Urobilinogen Leukocyte Esterase Rfl Urine RBC Urine WBC Ur Squamous Epith Cells Urine Bacteria Urine Casts Influenza A (RT-PCR) Negative Influenza B (RT-PCR) Negative RSV (RT-PCR) Negative SARS-CoV-2 RNA (RT-PCR) Negative 12/27/24 12/28/24 23:26 01:10 WBC RBC Hgb Hct MCV MCH MCHC RDW Plt Count MPV Immature Gran % (Auto) Neut % (Auto) Lymph % (Auto) [place] % (Auto) Eos % (Auto) Baso % (Auto) Lymph # (Auto) [place] # (Auto) Eos # (Auto) Baso # (Auto) Abs Immat Gran (auto) Absolute Neuts (auto) Absolute Nucleated RBC Nucleated RBC % PT INR APTT Sodium Potassium Chloride Carbon Dioxide Anion Gap BUN Creatinine Estim Creat Clear Calc Estimated GFR Glucose Lactic Acid 1.3 Calcium Total Bilirubin AST ALT Alkaline Phosphatase Troponin I Total Protein Albumin Urine Color Yellow Urine Appearance Clear Urine pH 8.0 Ur Specific [place] 1.019 Urine Protein Trace Urine Glucose (UA) Negative Urine Ketones Negative Ur Blood (Man) Negative Urine Nitrate Positive H Urine Bilirubin Negative Urine Urobilinogen 1.0 Leukocyte Esterase Rfl 2+ H Urine RBC 0-2 Urine WBC >100 H Ur Squamous Epith Cells None seen Urine Bacteria 4+ H Urine Casts 0-2 Influenza A (RT-PCR) Influenza B (RT-PCR) RSV (RT-PCR) SARS-CoV-2 RNA (RT-PCR) Quality VTE Prophylaxis VTE prophylaxis: mechanical ordered
--- NOTE | 2024-12-28 09:47 | ECG_ITS ---
Test Date: 2024-12-28 12:56:10 Measurements Intervals [place] Rate: 78 P: 39 W[place]: 210 QRS: 48 QRSD: 170 T: 43 QT: 451 QTc: 514 Interpretive Statements SINUS RHYTHM WITH FIRST DEGREE AV BLOCK RIGHT BUNDLE BRANCH BLOCK Electronically Signed On 12-29-2024 09:55:09 ITINERANT TEACHER ASSISTANT by Srinivas Joseph D.O
--- NOTE | 2024-12-28 10:12 | WPCACHO ---
Situation Room: Virtual Bed 3rd Floor Bed: 1 Registration Status: ADM IN Reason for Visit: uti w/ sepsis Primary Language: Mexican Preferred Language for Healthcare Information: Mexican Living Arrangement: With Spouse Contact: Katja Kelley/Person to Notify/[phone]/Spouse Admitting: Mary Gunter MD Attending: Mary Gunter MD Primary: Jamel Patel MD Referring: Background Triage Note: Patient BIBEMS, coming from home. Feeling sick since 7pm. Patient thinks he anne a UTI, dark urine, burning when he pees, fever. Patient was found laying on ground with CPAP, 89% RA, EMS placed pt on 4L, sating 96%. Patient states he wears CPAP at night. 103.4 temp by EMS, 650 Tylenol given by EMS. Patient is A/Ox4 Assessment New observations/notes/concerns this shift: Recommendations Abnormal labs: Specimens to Collect: Planned/Potential Procedures: Consents Obtained/Needed: Consults: Other follow-up needed: Discharge Planning Note: Met with pt. regarding discharge plans and he states he lives at home with his , Katja, and is independent in his daily life. Pt. plans to go home after stay and has no anticipated needs at this time. Pt. states he has transportation at discharge. Will continue to follow for any further case management needs. Code Status 12/28/24 03:28 Code Status ORDER Resuscitation Status: Full Code
--- NOTE | 2024-12-28 10:31 | WPCEDHO ---
ED Hand Off Checklist All vitals saved:y IV Site documented:y All med administrations documented:y Triage Note Triage Note Patient ALVERTO, coming from home. 12/27/24 22:40 Feeling sick since 7pm. Patient thinks he anne a UTI, dark urine, burning when he pees, fever. Patient was found laying on ground with CPAP, 89% RA, EMS placed pt on 4L, sating 96%. Patient states he wears CPAP at night. 103.4 temp by EMS, 650 Tylenol given by EMS. Patient is A/Ox4 Allergies No Known Allergies Allergy (Unknown, Verified 12/28/24 05:39) Current Diagnoses Sepsis, unspecified organism (12/28/24) Urinary tract infection, site not specified (12/28/24) Family History (Last Updated 12/28/24 @ 05:42 by Clinton Burnham RN) Sibling Family history of malignant neoplasm Mother Family history of malignant neoplasm Father Heart disease Family history of lung cancer Cerebrovascular accident Active Medications including assessments/comments Aspirin (Aspirin 81 Mg Enteric Tablet) 81 mg PO DAILY [facility] Last Admin: 12/28/24 09:16 Dose: 81 mg Documented By: LEV Calcium Carbonate (Calcium/Vitamin D 500 Mg/5 Mcg (200 I.U.) Tablet) 500 mg PO DAILY [facility] Last Admin: 12/28/24 09:17 Dose: 500 mg Documented By: LEV Flecainide Acetate (Flecainide Acetate 100 Mg Tablet) 100 mg PO Q12HR [facility] Last Admin: 12/28/24 09:16 Dose: 100 mg Documented By: ZAK MAR Pulse Assessment Document 12/28/24 09:16 LEV (Rec: 12/28/24 09:16 LEV [id number]) Pulse Pulse Rate (60-100) 72 Rhythm Regular Lactated Ringer's (Lr - Lactated Ringers Iv) 1,000 mls @ 125 mls/hr IV CONT .Q8H [facility] Last Admin: 12/28/24 05:35 Dose: 125 mls/hr Documented By: ACS Infusion/Titration Document 12/28/24 05:35 ACS (Rec: 12/28/24 05:36 ACS [id number]) Intake IV Site Peripheral Access Right Forearm Container Volume 1,000 Waste Amount 0 Dosing Infusion Rate 125 Cumulative Dose Not Applicable Increase/Decrease Started Elapsed Time Elapsed Time ( 0m minutes) Tamsulosin HCl (Tamsulosin Hcl 0.4 Mg Capsule) 0.4 mg PO DAILY [facility] Last Admin: 12/28/24 09:16 Dose: 0.4 mg Documented By: LEV Administered/Completed Medications Discontinued Medications Lactated Ringer's (Lr - Lactated Ringers Iv) 1,000 mls @ 999 mls/hr IV CONT .Q1H1M STA Stop: 12/28/24 00:10 Last Infusion: 12/28/24 00:21 Dose: Infused Documented By: Admin: 12/27/24 23:19 Dose: 999 mls/hr Documented By: ACS Ceftriaxone Sodium 1 gm/ (Sodium Chloride) 50 mls @ 100 mls/hr IVPB ONCE STA Stop: 12/28/24 00:21 Last Infusion: 12/28/24 00:47 Dose: Infused Documented By: Admin: 12/28/24 00:18 Dose: 100 mls/hr Documented By: ACS Ceftriaxone Sodium 1 gm/ (Sodium Chloride) 50 mls @ 100 mls/hr IVPB Q24H [facility] Last Admin: 12/28/24 00:46 Dose: Not Given Documented By: HNK Non-Admin Reason: Order Discontinued Notes 12/28/24 10:12 Acute Hand Off by Noemi Simmons Situation Room: Virtual Bed 3rd Floor Bed: 1 Registration Status: ADM IN Reason for Visit: uti w/ sepsis Primary Language: Icelandic Preferred Language for Healthcare Information: Icelandic Living Arrangement: With Spouse Contact: Katja Kelley/Person to Notify/[phone]/Spouse Admitting: Mary Gunter MD Attending: Mary Gunter MD Primary: Jamel Patel MD Referring: Background Triage Note: Patient BIBEMS, coming from home. Feeling sick since 7pm. Patient thinks he anne a UTI, dark urine, burning when he pees, fever. Patient was found laying on ground with CPAP, 89% RA, EMS placed pt on 4L, sating 96%. Patient states he wears CPAP at night. 103.4 temp by EMS, 650 Tylenol given by EMS. Patient is A/Ox4 Assessment New observations/notes/concerns this shift: Recommendations Abnormal labs: Specimens to Collect: Planned/Potential Procedures: Consents Obtained/Needed: Consults: Other follow-up needed: Discharge Planning Note: Met with pt. regarding discharge plans and he states he lives at home with his , Katja, and is independent in his daily life. Pt. plans to go home after stay and has no anticipated needs at this time. Pt. states he has transportation at discharge. Will continue to follow for any further case management needs. Code Status 12/28/24 03:28 Code Status ORDER Resuscitation Status: Full Code Initialized on 12/28/24 10:12 - END OF NOTE 12/28/24 07:11 Nurse Note by Paige Sim ordered on pt. pt resting at this time. pt VSS Initialized on 12/28/24 07:11 - END OF NOTE Interventions/Assessments General Assessment Start: 12/27/24 22:35 Freq: Status: Active Protocol: Document 12/27/24 23:24 ACS (Rec: 12/27/24 23:25 ACS [id number]) GA Neurological Assessment Neurological Yes Assessment WNL Level of Alert Consciousness Arousable to Verbal Orientation Oriented to Person,Oriented to Place,Oriented to Time Behavior Appropriate,Cooperative Patient Able to Comprehend Comprehension Memory Description Intact Ability to Maintain Normal Balance GA Respiratory Assessment Symptoms None Respiratory Rate (12 18 -20) Depth Normal Adult Capillary Normal/Less than 2 Seconds Refill Cough Description None Oxygen Delivery Room Air Method Pulse Oximetry (90- 91 100) GA Genitourinary Assessment Genitourinary Burning Symptoms Urine Color Dark IV / Saline Lock, Insert Start: 12/27/24 22:35 Freq: Status: Active Protocol: Document 12/27/24 22:53 AMH (Rec: 12/27/24 22:53 AMH [id number]) IV Assessment Peripheral Access Right Antecubital IV Catheter Access Initiated IV Insertion Date 12/27/24 IV Insertion Time 22:53 Catheter Gauge 20 IV Site Assessment WNL IV Care and WNL Maintenance IV / Saline Lock, Insert Start: 12/27/24 22:54 Freq: STAT Status: Active Protocol: Document 12/27/24 22:58 AMH (Rec: 12/27/24 22:58 AMH [id number]) IV Assessment Peripheral Access Right Forearm IV Catheter Access Initiated IV Insertion Date 12/27/24 IV Insertion Time 22:58 Catheter Gauge 18 IV Site Assessment WNL IV Care and WNL Maintenance Last Vital Signs Temperature 102.3 F H 12/27/24 22:40 Pulse Rate 71 12/28/24 10:30 Respiratory Rate 16 12/28/24 10:30 Pulse Oximetry 96 12/28/24 10:30 Blood Pressure 147/71 H 12/28/24 10:30 Blood Pressure Mean 96 12/28/24 10:30 Blood Pressure Position Supine 12/28/24 10:30 Oxygen Delivery Room Air 12/27/24 22:40 Weight 101.2 kg 12/27/24 22:40 Last Result - Abnormals Only WBC 11.8 K/mm3 (4.5-10.0) H 12/27/24 22:56 Plt Count 131 k/mm3 (150-375) L 12/27/24 22:56 Neut % (Auto) 89.0 % (45.5-73.1) H 12/27/24 22:56 Lymph % (Auto) 2.7 % (18.3-44.2) L 12/27/24 22:56 Baso % (Auto) 0.1 % (0.2-1.2) L 12/27/24 22:56 Lymph # (Auto) 0.32 K/mm3 (0.9-3.2) L 12/27/24 22:56 [place] # (Auto) 0.8 K/mm3 (0.1-0.6) H 12/27/24 22:56 Absolute Neuts (auto) 10.5 K/mm3 (1.3-6.7) H 12/27/24 22:56 Sodium 136 mmol/L (137-145) L 12/27/24 22:56 Glucose 114 mg/dL (65-110) H 12/27/24 22:56 Lactic Acid 2.1 mmol/L (0.7-2.0) H 12/27/24 22:59 Urine Nitrate Positive (Negative) H 12/27/24 23:26 Leukocyte Esterase Rfl 2+ DENISE/UL (Negative) H 12/27/24 23:26 Urine WBC >100 /hpf (0-3) H 12/27/24 23:26 Urine Bacteria 4+ /hpf H 12/27/24 23:26 Most Recent Suicide Severity Rating Suicide Severity Rating NO RISK INDICATED 12/28/24 05:32
[2024-12-28 10:35] LABS: Hematocrit 46.4 % (42.0-52.0); Hemoglobin 15.7 g/dL (14.0-18.0); Immature Granulocyte Percent A 0.3 % (0-0.5); Lymphocytes Absolute Auto 0.73 K/mm3 (0.9-3.2); Mean Corpuscular HGB Conc 33.8 g/dl (32-36); Mean Corpuscular Hemoglobin 31.6 pg (26-34); Mean Corpuscular Volume 93.4 fl (80-100); Nucleated Red Blood Cells Absolute Auto 0.000 K/mm3 (0.0-0.012); Nucleated Red Blood Cells Perc 0.0 % (0.0-0.2); Platelet Count Result 137 k/mm3 (150-375); Red Blood Count 4.97 M/mm3 (4.6-6.20); White Blood Count 11.8 K/mm3 (4.5-10.0)
--- NOTE | 2024-12-28 11:15 | ADMGEN ---
This patient, Blue Kelley, was admitted to Medical Room 250-01. Patient/family oriented to hospital policies and general routines including ID bracelet, bed and alarms, visiting hours, pain management, procedures, bathroom and other care routines, personal items, smoking policy, room service/diet, and visiting hours. Information on how to activate the Rapid Response Team has been discussed. Patient/Family are encouraged to report perceived risks to care and to ask questions if they do not understand what they are told or what they should do.
[2024-12-28 12:00] LABS: Alanine Aminotransferase 22 U/L (6-50); Albumin Level 3.8 g/dL (3.5-5.1); Alkaline Phosphatase 61 U/L (38-126); Anion Gap 4 mmol/L (4-12); Aspartate Amino Transferase 27 U/L (17-59); Bilirubin,Total 0.8 mg/dL (0.2-1.3); Blood Urea Nitrogen 18 mg/dL (9-20); Calcium 9.1 mg/dL (8.4-10.2); Carbon Dioxide 28 mmol/L (22-30); Chloride 105 mmol/L (98-107); Estimated CRCL calculation 62 ml/min; Estimated Glomerular Filt Rate > 60; Glucose 94 mg/dL (65-110); Potassium 4.9 mmol/L (3.4-5.0); Sodium 137 mmol/L (137-145); Total Protein 6.5 g/dL (6.3-8.2)
[2024-12-28 19:18] LABS: IFOB Positive Control Positive; Immunochemical Fecal Occult Bl Negative (N)
[2024-12-29] VITALS (11 sets, daily range): BP systolic 108–140; BP diastolic 53–64; PULSE 70–91; RESP 12–20; TEMP 36.1–37; O2SAT 92–98
[2024-12-29 05:49] LABS: Hematocrit 44.6 % (42.0-52.0); Hemoglobin 15.3 g/dL (14.0-18.0); Immature Granulocyte Percent A 0.3 % (0-0.5); Immature Platelet Fraction Pct 1.8 % (0.9-11.2); Lymphocytes Absolute Auto 0.80 K/mm3 (0.9-3.2); Mean Corpuscular HGB Conc 34.3 g/dl (32-36); Mean Corpuscular Hemoglobin 31.9 pg (26-34); Mean Corpuscular Volume 92.9 fl (80-100); Nucleated Red Blood Cells Absolute Auto 0.000 K/mm3 (0.0-0.012); Nucleated Red Blood Cells Perc 0.0 % (0.0-0.2); Platelet Count Result 147 k/mm3 (150-375); Red Blood Count 4.80 M/mm3 (4.6-6.20); White Blood Count 7.1 K/mm3 (4.5-10.0)
[2024-12-29 06:14] LABS: Alanine Aminotransferase 20 U/L (6-50); Albumin Level 3.6 g/dL (3.5-5.1); Alkaline Phosphatase 57 U/L (38-126); Anion Gap 5 mmol/L (4-12); Aspartate Amino Transferase 29 U/L (17-59); Bilirubin,Total 0.8 mg/dL (0.2-1.3); Blood Urea Nitrogen 16 mg/dL (9-20); Calcium 8.6 mg/dL (8.4-10.2); Carbon Dioxide 27 mmol/L (22-30); Chloride 103 mmol/L (98-107); Estimated CRCL calculation 60 ml/min; Estimated Glomerular Filt Rate > 60; Glucose 90 mg/dL (65-110); Magnesium 2.0 mg/dL (1.6-2.3); Potassium 4.2 mmol/L (3.4-5.0); Sodium 135 mmol/L (137-145); Total Protein 6.1 g/dL (6.3-8.2)
[2024-12-29] MEDS: FLECAINIDE ACETATE 100 MG TABLET PO (09:04)
[2024-12-29] MEDS: TAMSULOSIN HCL 0.4 MG CAPSULE PO (09:04)
[2024-12-29] MEDS: CALCIUM/VITAMIN D 500 MG/5 MCG (200 I.U.) TABLET PO (09:05)
[2024-12-29] MEDS: ASPIRIN 81 MG ENTERIC TABLET PO (09:05)
--- NOTE | 2024-12-29 11:54 | PM.IMPN ---
Progress Note: A&P Assessment and Plan (1) Acute UTI: Code(s): N39.0 - Urinary tract infection, site not specified Status: Acute Assessment and Plan: Urinalysis positive for nitrates, wbc's, leukocyte esterase, 4+ bacteria. 12/28: Uri sx: Dysuria -Pt reports chronic hx of UTI and was taking PO Bactrim at home for UTI rx by his urologist -Continue Ceftriaxone -Pending UC 12/29: Pt still having mild dysuria, but better today. -Continue ceftriaxone until UC sensitivities result -Pending UC and BC (2) Sepsis without septic shock: Code(s): A41.9 - Sepsis, unspecified organism Status: Acute Assessment and Plan: Mr. Kelley presents with sepsis without shock as evidenced by leukocytosis, lactic acidosis and urinary tract infection. Lactic acidosis has already resolved. Patient is hemodynamically stable. Continue fluids, ceftriaxone, finasteride, tamsulosin. Follow-up urine and blood cultures. Prolonged QTC, hold flecainide for now. 12/28: VSS stable now, sepsis ruled out. -Repeat EKG today: QTc 514 -->Mag level in the AM -Continue tele -Repeat labs: WBC 11.8-->11.8, continue to trend 12/29: Labs, VS, and pt status continue to be stable. -QTc via tele 457 today, continue tele. Flecainide was restarted -Mag WDL -WBC 11.8-->7.1, continue to trend -UC & BC pending Plan Full code. SCDs. History of paroxysmal atrial tachycardia. Admit to medical floor with telemetry for prolonged QTc. Pending UC & BC. Disposition: Await results with sensitivities due to sepsis sx upon arrival to the ED Time Spent With Patient Time: 35 Subjective Date/time seen: 12/29/24 1012 Interval history: Pt sitting up in chair comfortably upon my arrival. Pt reports that his dysuria has improved today as well as his suprapubic pain. Pt states that he is feeling better than he did yesterday. Pt continues to deny subjective fever or other urinary sx. Review of Systems Review of Systems: All systems reviewed & are unremarkable except as noted in HPI and below (Subjective) Exam Const: General: comfortable and no acute distress Other: A&O x4 HENMT: Mouth: Yes dry mucous membranes Eyes: Pupils: Equal, round and reactive pupils present Neck: Neck: supple Resp: Effort & Inspection: normal respiratory effort Auscultation: clear to auscultation bilaterally Cardio: Rate: regular rate Rhythm: regular rhythm Other: Tele 71bpm, QTC 457 GI: GI Palp: No abdominal tenderness Auscultation: normal bowel sounds : General: Yes bladder normal to palpation Skin: General skin exam: normal color and no rashes or lesions noted Neuro: Cranial nerves: Yes Equal, round and reactive pupils present Motor exam (neuro): Normal motor muscle tone present throughout Sensory Exam: normal sensation Extrem: General: normal to inspection and no pedal edema Psych: Mental Status: mental status grossly normal Affect: normal affect Objective Data Vital Signs Vital Signs: Vital Signs - 24 hr 12/28/24 12:00 12/28/24 12:00 12/28/24 12:00 Temperature 97.1 F L Pulse Rate 80 71 Respiratory Rate 16 Blood Pressure 143/59 H Pulse Oximetry 94 Oxygen Delivery Room Air 12/28/24 14:00 12/28/24 15:06 12/28/24 16:00 Temperature 97.1 F L Pulse Rate 80 81 Respiratory Rate 16 Blood Pressure 143/59 H Pulse Oximetry 94 95 Oxygen Delivery Room Air 12/28/24 16:00 12/28/24 20:00 12/28/24 20:00 Temperature 98.2 F 98.1 F Pulse Rate 72 75 75 Respiratory Rate 14 18 Blood Pressure 134/64 151/57 H Pulse Oximetry 97 94 Oxygen Delivery 12/28/24 20:37 12/28/24 20:38 12/29/24 00:00 Temperature 97.9 F 98.4 F Pulse Rate 76 73 75 Respiratory Rate 18 18 Blood Pressure 144/66 H 135/61 Pulse Oximetry 97 92 Oxygen Delivery 12/29/24 00:00 12/29/24 04:00 12/29/24 06:00 Temperature 97.9 F Pulse Rate 74 72 71 Respiratory Rate 18 Blood Pressure 132/61 Pulse Oximetry 95 Oxygen Delivery 12/29/24 08:00 12/29/24 08:00 12/29/24 08:00 Temperature 97.8 F Pulse Rate 77 80 Respiratory Rate 16 Blood Pressure 134/64 Pulse Oximetry 94 Oxygen Delivery Room Air 12/29/24 09:04 Temperature Pulse Rate 79 Respiratory Rate Blood Pressure Pulse Oximetry Oxygen Delivery Intake/Output Intake/Output: Intake & Output 12/26/24 12/27/24 12/28/24 12/29/24 23:59 23:59 23:59 23:59 Intake Total 2734.6 240 Output Total 2275 520 Balance 459.6 -280 Meds/Results Medications: Active Medications Generic Name Dose Route Start Last Admin Trade Name Kong PRN Reason Stop Dose Admin Aspirin 81 mg 12/28/24 09:00 12/29/24 09:05 Aspirin 81 Mg Enteric Tablet PO 81 mg DAILY SARINA Administration Calcium Carbonate 500 mg 12/28/24 09:00 12/29/24 09:05 Calcium/Vitamin D 500 Mg/5 Mcg (200 I.U.) Tablet PO 500 mg DAILY SARINA Administration Flecainide Acetate 100 mg 12/28/24 09:00 12/29/24 09:04 Flecainide Acetate 100 Mg Tablet PO 100 mg Q12HR SARINA Administration Ceftriaxone Sodium 1 gm/ 50 mls @ 100 mls/hr 12/28/24 21:00 12/28/24 20:38 Sodium Chloride IVPB 100 mls/hr Q24H SARINA Administration Tamsulosin HCl 0.4 mg 12/28/24 09:00 12/29/24 09:04 Tamsulosin Hcl 0.4 Mg Capsule PO 0.4 mg DAILY SARINA Administration Radiology Results: ITS Impressions Chest X-Ray 12/28/24 07:27 IMPRESSION: 1. No acute cardiopulmonary findings given portable technique. Abdomen/Pelvis CT 12/28/24 08:21 IMPRESSION: 1. Small stones left kidney. No hydronephrosis. 2. Chronic hydronephrosis/ureter and kidney. 3. Prostatomegaly. 4. Additional findings as above. Labs Labs: Laboratory Results - last 24 hr 12/28/24 12/28/24 12/29/24 10:29 18:41 05:22 WBC 7.1 RBC 4.80 Hgb 15.3 Hct 44.6 MCV 92.9 MCH 31.9 MCHC 34.3 RDW 13.7 Plt Count 147 L MPV 9.6 Immature Gran % (Auto) 0.3 Neut % (Auto) 75.6 H Lymph % (Auto) 11.2 L [place] % (Auto) 10.4 H Eos % (Auto) 2.2 Baso % (Auto) 0.3 Lymph # (Auto) 0.80 L [place] # (Auto) 0.7 H Eos # (Auto) 0.2 Baso # (Auto) 0.0 Abs Immat Gran (auto) 0.02 Absolute Neuts (auto) 5.4 Absolute Nucleated RBC 0.000 Nucleated RBC % 0.0 % Immature Plt Fraction 1.8 Sodium 137 135 L Potassium 4.9 4.2 Chloride 105 103 Carbon Dioxide 28 27 Anion Gap 4 5 BUN 18 16 Creatinine 0.97 0.99 Estim Creat Clear Calc 62 60 Estimated GFR > 60 > 60 Glucose 94 90 Calcium 9.1 8.6 Magnesium 2.0 Total Bilirubin 0.8 0.8 AST 27 29 ALT 22 20 Alkaline Phosphatase 61 57 Total Protein 6.5 6.1 L Albumin 3.8 3.6 Stl Occult Blood (IFOB) Negative Quality VTE Prophylaxis VTE prophylaxis: mechanical ordered
[2024-12-29] MEDS: cefTRIAXone 1 GM in SODIUM CHLORIDE 0.9% IV 50 ML 100 ML IVPB (20:27)
[2024-12-30] VITALS (9 sets, daily range): BP systolic 120–137; BP diastolic 52–62; PULSE 53–85; RESP 17–20; TEMP 36.4–36.8; O2SAT 93–96
[2024-12-30 04:35] LABS: Hematocrit 44.8 % (42.0-52.0); Hemoglobin 15.1 g/dL (14.0-18.0); Immature Granulocyte Percent A 0.2 % (0-0.5); Lymphocytes Absolute Auto 0.93 K/mm3 (0.9-3.2); Mean Corpuscular HGB Conc 33.7 g/dl (32-36); Mean Corpuscular Hemoglobin 31.2 pg (26-34); Mean Corpuscular Volume 92.6 fl (80-100); Nucleated Red Blood Cells Absolute Auto 0.000 K/mm3 (0.0-0.012); Nucleated Red Blood Cells Perc 0.0 % (0.0-0.2); Platelet Count Result 141 k/mm3 (150-375); Red Blood Count 4.84 M/mm3 (4.6-6.20); White Blood Count 6.0 K/mm3 (4.5-10.0)
[2024-12-30 04:52] LABS: Alanine Aminotransferase 20 U/L (6-50); Albumin Level 3.6 g/dL (3.5-5.1); Alkaline Phosphatase 51 U/L (38-126); Anion Gap 5 mmol/L (4-12); Aspartate Amino Transferase 25 U/L (17-59); Bilirubin,Total 0.7 mg/dL (0.2-1.3); Blood Urea Nitrogen 18 mg/dL (9-20); Calcium 8.4 mg/dL (8.4-10.2); Carbon Dioxide 25 mmol/L (22-30); Chloride 105 mmol/L (98-107); Estimated CRCL calculation 63 ml/min; Estimated Glomerular Filt Rate > 60; Glucose 99 mg/dL (65-110); Magnesium 2.1 mg/dL (1.6-2.3); Potassium 4.3 mmol/L (3.4-5.0); Sodium 135 mmol/L (137-145); Total Protein 6.3 g/dL (6.3-8.2)
[2024-12-30] MEDS: TAMSULOSIN HCL 0.4 MG CAPSULE PO (10:02)
[2024-12-30] MEDS: ASPIRIN 81 MG ENTERIC TABLET PO (10:02)
[2024-12-30] MEDS: CALCIUM/VITAMIN D 500 MG/5 MCG (200 I.U.) TABLET PO (10:02)
--- NOTE | 2024-12-30 15:25 | PM.IMPN ---
Progress Note: A&P Assessment and Plan (1) Acute UTI: Code(s): N39.0 - Urinary tract infection, site not specified Status: Acute Assessment and Plan: Urinalysis positive for nitrates, wbc's, leukocyte esterase, 4+ bacteria. 12/28: Uri sx: Dysuria -Pt reports chronic hx of UTI and was taking PO Bactrim at home for UTI rx by his urologist -Continue Ceftriaxone -Pending UC 12/29: Pt still having mild dysuria, but better today. -Continue ceftriaxone until UC sensitivities result -Pending UC and BC 12/30: Pt denies any dysuria or suprapubic TTP -Continue ceftriaxone until UC sensitivities result -Prelim BC no growth in 24 hours 12/31: Pt denies any dysuria or suprapubic TTP -Continue ceftriaxone until UC sensitivities result -Prelim BC no growth in 48 hours (2) Sepsis without septic shock: Code(s): A41.9 - Sepsis, unspecified organism Status: Acute Assessment and Plan: Mr. Kelley presents with sepsis without shock as evidenced by leukocytosis, lactic acidosis and urinary tract infection. Lactic acidosis has already resolved. Patient is hemodynamically stable. Continue fluids, ceftriaxone, finasteride, tamsulosin. Follow-up urine and blood cultures. Prolonged QTC, hold flecainide for now. 12/28: VSS stable now, sepsis ruled out. -Repeat EKG today: QTc 514 -->Mag level in the AM -Continue tele -Repeat labs: WBC 11.8-->11.8, continue to trend 12/29: Labs, VS, and pt status continue to be stable. -QTc via tele 457 today, continue tele. Flecainide was restarted -Mag WDL -WBC 11.8-->7.1, continue to trend -UC & BC pending 12/30: Labs, VS and pt status continues to be stable -QTc via tele 474 today, continue tele. -Mag WDL -WBC continues to be WDL -UC sensitivities & BC pending Plan Full code. SCDs. History of paroxysmal atrial tachycardia. Admit to medical floor with telemetry for prolonged QTc. Pending UC & BC. Disposition: Await UC results with sensitivities due to sepsis sx upon arrival to the ED Time Spent With Patient Time: 35 Subjective Date/time seen: 12/30/24 1253 Interval history: Pt sitting up in chair comfortably upon my arrival. Pt reports that he no longer has any dysuria or suprapubic pain. Pt continues to deny subjective fever or other urinary sx. Agreeable to stay for UC, tolerating IV abx. Review of Systems Review of Systems: All systems reviewed & are unremarkable except as noted in HPI and below (Subjective) Exam Const: General: comfortable and no acute distress Other: A&O x4 HENMT: Mouth: Yes dry mucous membranes Eyes: Pupils: Equal, round and reactive pupils present Neck: Neck: supple Resp: Effort & Inspection: normal respiratory effort Auscultation: clear to auscultation bilaterally Cardio: Rate: regular rate Rhythm: regular rhythm Other: Tele 72bpm, QTC 474 GI: GI Palp: No abdominal tenderness Auscultation: normal bowel sounds : General: Yes bladder normal to palpation Skin: General skin exam: normal color and no rashes or lesions noted Neuro: Cranial nerves: Yes Equal, round and reactive pupils present Motor exam (neuro): Normal motor muscle tone present throughout Sensory Exam: normal sensation Extrem: General: normal to inspection and no pedal edema Psych: Mental Status: mental status grossly normal Affect: normal affect Objective Data Vital Signs Vital Signs: Vital Signs - 24 hr 12/29/24 16:00 12/29/24 16:00 12/29/24 20:00 Temperature 97.0 F L Pulse Rate 70 86 91 Respiratory Rate 18 Blood Pressure 135/61 Pulse Oximetry 98 Oxygen Delivery 12/29/24 20:07 12/29/24 21:43 12/30/24 00:00 Temperature 97.8 F Pulse Rate 80 83 58 L Respiratory Rate 20 Blood Pressure 118/60 Pulse Oximetry 95 Oxygen Delivery 12/30/24 04:00 12/30/24 05:20 12/30/24 08:00 Temperature 98.0 F Pulse Rate 53 L 68 Respiratory Rate 20 Blood Pressure 137/56 L Pulse Oximetry 93 Oxygen Delivery Room Air 12/30/24 08:00 12/30/24 12:00 12/30/24 15:03 Temperature 98.2 F Pulse Rate 82 76 77 Respiratory Rate 17 Blood Pressure 120/52 L Pulse Oximetry 96 Oxygen Delivery Intake/Output Intake/Output: Intake & Output 11/14/25 11/15/25 11/16/25 11/17/25 23:59 23:59 23:59 23:59 Intake Total 2784.6 720 842 Output Total 2275 520 Balance 509.6 200 842 Meds/Results Medications: Active Medications Generic Name Dose Route Start Last Admin Trade Name Kong PRN Reason Stop Dose Admin Aspirin 81 mg 12/28/24 09:00 12/30/24 10:02 Aspirin 81 Mg Enteric Tablet PO 81 mg DAILY SARINA Administration Calcium Carbonate 500 mg 12/28/24 09:00 12/30/24 10:02 Calcium/Vitamin D 500 Mg/5 Mcg (200 I.U.) Tablet PO 500 mg DAILY SARINA Administration Flecainide Acetate 100 mg 12/28/24 09:00 12/30/24 10:04 Flecainide Acetate 100 Mg Tablet PO Not Given Q12HR [facility] Ceftriaxone Sodium 1 gm/ 50 mls @ 100 mls/hr 12/28/24 21:00 12/29/24 20:27 Sodium Chloride IVPB 100 mls/hr Q24H SARINA Administration Tamsulosin HCl 0.4 mg 12/28/24 09:00 12/30/24 10:02 Tamsulosin Hcl 0.4 Mg Capsule PO 0.4 mg DAILY SARINA Administration Radiology Results: ITS Impressions Chest X-Ray 12/28/24 07:27 IMPRESSION: 1. No acute cardiopulmonary findings given portable technique. Abdomen/Pelvis CT 12/28/24 08:21 IMPRESSION: 1. Small stones left kidney. No hydronephrosis. 2. Chronic hydronephrosis/ureter and kidney. 3. Prostatomegaly. 4. Additional findings as above. Labs Labs: Laboratory Results - last 24 hr 12/30/24 04:24 WBC 6.0 RBC 4.84 Hgb 15.1 Hct 44.8 MCV 92.6 MCH 31.2 MCHC 33.7 RDW 13.8 Plt Count 141 L MPV 9.5 Immature Gran % (Auto) 0.2 Neut % (Auto) 68.7 Lymph % (Auto) 15.5 L [place] % (Auto) 11.3 H Eos % (Auto) 4.0 Baso % (Auto) 0.3 Lymph # (Auto) 0.93 [place] # (Auto) 0.7 H Eos # (Auto) 0.2 Baso # (Auto) 0.0 Abs Immat Gran (auto) 0.01 Absolute Neuts (auto) 4.1 Absolute Nucleated RBC 0.000 Nucleated RBC % 0.0 Sodium 135 L Potassium 4.3 Chloride 105 Carbon Dioxide 25 Anion Gap 5 BUN 18 Creatinine 0.95 Estim Creat Clear Calc 63 Estimated GFR > 60 Glucose 99 Calcium 8.4 Magnesium 2.1 Total Bilirubin 0.7 AST 25 ALT 20 Alkaline Phosphatase 51 Total Protein 6.3 Albumin 3.6 Quality VTE Prophylaxis VTE prophylaxis: mechanical ordered
[2024-12-30] MEDS: cefTRIAXone 1 GM in SODIUM CHLORIDE 0.9% IV 50 ML 100 ML IVPB (20:41)
[2024-12-31] VITALS (10 sets, daily range): BP systolic 126–133; BP diastolic 62–66; PULSE 60–88; RESP 14–20; TEMP 36.4–36.6; O2SAT 93–98
--- NOTE | 2024-12-31 04:01 | PC.NURSE ---
Addendum entered by Della Cruz RN 12/31/24 04:06: HR in high 50s t0 90s. Addendum entered by Della Cruz RN 12/31/24 04:05: Pt with PVCs overnight. HR in high 5s to 9s. 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 Original Note: 2030: Pt with prolonged QTC; hospitalist notified. Order to hold his Flecainide.
[2024-12-31 04:48] LABS: Hematocrit 44.1 % (42.0-52.0); Hemoglobin 15.1 g/dL (14.0-18.0); Immature Granulocyte Percent A 0.2 % (0-0.5); Lymphocytes Absolute Auto 0.89 K/mm3 (0.9-3.2); Mean Corpuscular HGB Conc 34.2 g/dl (32-36); Mean Corpuscular Hemoglobin 31.4 pg (26-34); Mean Corpuscular Volume 91.7 fl (80-100); Nucleated Red Blood Cells Absolute Auto 0.000 K/mm3 (0.0-0.012); Nucleated Red Blood Cells Perc 0.0 % (0.0-0.2); Platelet Count Result 148 k/mm3 (150-375); Red Blood Count 4.81 M/mm3 (4.6-6.20); White Blood Count 4.8 K/mm3 (4.5-10.0)
[2024-12-31 05:07] LABS: Alanine Aminotransferase 23 U/L (6-50); Albumin Level 3.6 g/dL (3.5-5.1); Alkaline Phosphatase 58 U/L (38-126); Anion Gap 3 mmol/L (4-12); Aspartate Amino Transferase 25 U/L (17-59); Bilirubin,Total 0.7 mg/dL (0.2-1.3); Blood Urea Nitrogen 16 mg/dL (9-20); Calcium 8.4 mg/dL (8.4-10.2); Carbon Dioxide 26 mmol/L (22-30); Chloride 106 mmol/L (98-107); Estimated CRCL calculation 64 ml/min; Estimated Glomerular Filt Rate > 60; Glucose 93 mg/dL (65-110); Magnesium 2.1 mg/dL (1.6-2.3); Potassium 4.0 mmol/L (3.4-5.0); Sodium 135 mmol/L (137-145); Total Protein 6.1 g/dL (6.3-8.2)
[2024-12-31] MEDS: CALCIUM/VITAMIN D 500 MG/5 MCG (200 I.U.) TABLET PO (09:19)
[2024-12-31] MEDS: FLECAINIDE ACETATE 100 MG TABLET PO ×2 (09:20→20:42)
[2024-12-31] MEDS: TAMSULOSIN HCL 0.4 MG CAPSULE PO (09:20)
[2024-12-31] MEDS: ASPIRIN 81 MG ENTERIC TABLET PO (09:20)
[2024-12-31] MEDS: cefTRIAXone 1 GM in SODIUM CHLORIDE 0.9% IV 50 ML 100 ML IVPB (20:03)
[2025-01-01] VITALS: PULSE 66
[2025-01-01 05:27] LABS: Hematocrit 48.2 % (42.0-52.0); Hemoglobin 16.6 g/dL (14.0-18.0); Immature Granulocyte Percent A 0.4 % (0-0.5); Lymphocytes Absolute Auto 0.91 K/mm3 (0.9-3.2); Mean Corpuscular HGB Conc 34.4 g/dl (32-36); Mean Corpuscular Hemoglobin 31.9 pg (26-34); Mean Corpuscular Volume 92.7 fl (80-100); Nucleated Red Blood Cells Absolute Auto 0.000 K/mm3 (0.0-0.012); Nucleated Red Blood Cells Perc 0.0 % (0.0-0.2); Platelet Count Result 171 k/mm3 (150-375); Red Blood Count 5.20 M/mm3 (4.6-6.20); White Blood Count 4.5 K/mm3 (4.5-10.0)
[2025-01-01 05:38] LABS: Alanine Aminotransferase 26 U/L (6-50); Albumin Level 4.2 g/dL (3.5-5.1); Alkaline Phosphatase 59 U/L (38-126); Anion Gap 5 mmol/L (4-12); Aspartate Amino Transferase 36 U/L (17-59); Bilirubin,Total 1.0 mg/dL (0.2-1.3); Blood Urea Nitrogen 17 mg/dL (9-20); Calcium 9.1 mg/dL (8.4-10.2); Carbon Dioxide 29 mmol/L (22-30); Chloride 102 mmol/L (98-107); Estimated CRCL calculation 60 ml/min; Estimated Glomerular Filt Rate > 60; Glucose 92 mg/dL (65-110); Magnesium 2.2 mg/dL (1.6-2.3); Potassium 4.2 mmol/L (3.4-5.0); Sodium 136 mmol/L (137-145); Total Protein 7.0 g/dL (6.3-8.2)
[2025-01-01 05:45] VITALS: BP 134/50; PULSE 69; RESP 14; TEMP 36.7; O2SAT 96
[2025-01-01 08:00] VITALS: BP 149/66; PULSE 81; PULSE 84; RESP 16; TEMP 35.9; O2SAT 95
[2025-01-01 09:13] VITALS: PULSE 91
[2025-01-01] MEDS: ASPIRIN 81 MG ENTERIC TABLET PO (09:13)
[2025-01-01] MEDS: TAMSULOSIN HCL 0.4 MG CAPSULE PO (09:13)
[2025-01-01] MEDS: CALCIUM/VITAMIN D 500 MG/5 MCG (200 I.U.) TABLET PO (09:13)
[2025-01-01] MEDS: FLECAINIDE ACETATE 100 MG TABLET PO (09:13)
[2025-01-01 09:15] VITALS: PULSE 76; RESP 16; O2SAT 95
[2025-01-01] MEDS: CEFEPIME 1 GM in SODIUM CHLORIDE 0.9% IV 50 ML 100 ML IVPB (09:18)
--- NOTE | 2025-01-01 11:04 | P.DS_ITS ---
DS: Admitting Diagnosis Discharge Date 01/01/25 Admitting Diagnosis Sepsis DS: Discharge Diagnosis Discharge Diagnosis (1) Acute UTI: Code(s): N39.0 - Urinary tract infection, site not specified Status: Acute (2) BPH (benign prostatic hyperplasia): Qualifiers: Lower urinary tract symptom presence: symptoms present Lower urinary tract symptom detail: urinary frequency Qualified Code(s): N40.1 - Benign prostatic hyperplasia with lower urinary tract symptoms; R35.0 - Frequency of micturition Code(s): N40.0 - Benign prostatic hyperplasia without lower urinary tract symptoms Status: Chronic (3) Sepsis: Code(s): A41.9 - Sepsis, unspecified organism Status: Acute DS: Summary Hospital Course Reason for hospitalization: Sepsis 2/2 UTI Hospital Course: 84-year-old male with PMH paroxysmal atrial tachycardia, BPH status post prostate surgery, bladder stone, kidney stones, GERD, history of UTI presented to [facility] ER complaining of fever for 1 day. ER evaluation demonstrates fever of 102.3? F. leukocytosis 11,800, . CT abdomen and pelvis without contrast demonstrating bilateral lower lobe atelectasis, left-sided nephrolithiasis without obstruction or urolithiasis, mild right-sided hydronephrosis and hydroureter without evidence of urolithiasis, this is a chronic finding, prostatomegaly, right adrenal adenoma. Patient was started on ceftriaxone. Urine culture grew E coli. Based on sensitivities patient was discharged on Cefpodoxime for total 5 days. Patient is being discharged home in stable condition. Status at Discharge Functional status at discharge: independent ambulation Overall status at discharge: patient is back to baseline Time Spent with Patient Time attestation: Total time spent providing and/or coordinating discharge services: Exam Const: General: comfortable and no acute distress Other: A&O x4 HENMT: Mouth: Yes moist mucous membranes Eyes: Sclera: sclerae normal Neck: Neck: supple Resp: Effort & Inspection: normal respiratory effort Auscultation: clear to auscultation bilaterally Cardio: Rate: regular rate Rhythm: regular rhythm GI: GI Palp: No abdominal tenderness Auscultation: normal bowel sounds Skin: General skin exam: normal color and no rashes or lesions noted Neuro: Cranial nerves: Yes Equal, round and reactive pupils present Extrem: General: normal to inspection and no pedal edema Psych: Mental Status: mental status grossly normal Affect: normal affect DS: Data Data Completed and Pending Labs on day of discharge: Labs from last 24 hours 01/01/25 05:00 WBC 4.5 RBC 5.20 Hgb 16.6 Hct 48.2 MCV 92.7 MCH 31.9 MCHC 34.4 RDW 13.3 Plt Count 171 MPV 9.3 Immature Gran % (Auto) 0.4 Neut % (Auto) 65.9 Lymph % (Auto) 20.2 Richardson % (Auto) 9.3 H Eos % (Auto) 4.0 Baso % (Auto) 0.2 Lymph # (Auto) 0.91 Richardson # (Auto) 0.4 Eos # (Auto) 0.2 Baso # (Auto) 0.0 Abs Immat Gran (auto) 0.02 Absolute Neuts (auto) 3.0 Absolute Nucleated RBC 0.000 Nucleated RBC % 0.0 Sodium 136 L Potassium 4.2 Chloride 102 Carbon Dioxide 29 Anion Gap 5 BUN 17 Creatinine 1.00 Estim Creat Clear Calc 60 Estimated GFR > 60 Glucose 92 Calcium 9.1 Magnesium 2.2 Total Bilirubin 1.0 AST 36 ALT 26 Alkaline Phosphatase 59 Total Protein 7.0 Albumin 4.2 Preliminary micro results at discharge 12/27/24 23:16 Blood Culture - Preliminary Blood 12/27/24 23:17 Blood Culture - Preliminary Blood Discharge Plan Discharge Attending physician on discharge: Doris Jimenez Consulting providers: Meera Camejo Discharging Clinician: Doris Jimenez Anticipated Discharge Date/Time: 01/01/25 11:02 Patient Disposition: Home Activity: as tolerated Diet: heart healthy Discharge Instructions: Continue to take your antibiotics until gone. Make sure to not take these on an empty stomach to avoid nausea. Continue to check your blood pressure and blood sugar at home if applicable. Keep your scheduled appts with your primary care provider and any specialist that you may see. Return to the emergency department if you develop sudden shortness of breath, chest pain, a fever of greater than 101.5, or nausea, vomiting, abd pain, or diarrhea that does not go away. Follow-up with your primary care provider within 1-2 weeks, they will want to be updated on your inpatient stay in the hospital. Thank you for choosing [facility] for your healthcare needs. Patient Instructions: Antibiotic Form Patient Language: Irish Stand Alone Forms: General Discharge Information Follow-up/Referrals: Jamel Patel MD [Primary Care Provider, [facility]] - 2 Weeks Discharge Medications: New cefpodoxime 200 mg tablet 200 mg PO BID Qty: 10 0RF Rx Instructions: must administer with a meal/food Continued aspirin 81 mg tablet,delayed release (DR/EC) 81 mg PO DAILY calcium carbonate-vitamin D3 500 mg(1,250mg) -400 unit tablet 1 tablet PO DAILY tamsulosin 0.4 mg capsule 0.4 mg PO DAILY flecainide 100 mg tablet 100 mg PO Q12H Qty: 60 3RF testosterone cypionate 200 mg/mL oil 300 mg IM .Q2WEEK Qty: 10 0RF finasteride 5 mg tablet See Rx Instructions .ROUTE .COMPLEX Qty: 90 0RF Dose Instruction: TAKE 1 TABLET BY MOUTH EVERY DAY Rx Instructions: TAKE 1 TABLET BY MOUTH EVERY DAY Date of admission: 12/28/24 03:28 Primary Care Provider: Jamel Patel Admitting Provider: Mary Gunter Attending physician on admission: Mary Gunter Condition: Improved
[2025-01-01 12:00] VITALS: PULSE 76
== END 2025-01-01 12:12 | disposition home or self-care (01) | DRG 872 ==
LOC: ANHED 12-28 03:31 → ANH3MEDSUR 12-28 04:18 → ANH2MED 12-28 10:29
PROVIDERS: Admitting Provider General Practice; Emergency Provider Emergency Medicine; PCP Family Medicine; Visit Provider Internal Medicine
DX: A41.9 Sepsis, unspecified organism (principal); N13.6 Pyonephrosis; E87.20 Acidosis, unspecified; I47.19 Other supraventricular tachycardia; K21.9 Gastro-esophageal reflux disease without esophagitis; G62.9 Polyneuropathy, unspecified; E66.9 Obesity, unspecified; N40.1 Benign prostatic hyperplasia with lower urinary tract symptoms; R35.0 Frequency of micturition; D35.01 Benign neoplasm of right adrenal gland; Z20.822 Contact with and (suspected) exposure to COVID-19; B96.20 Unspecified Escherichia coli [E. coli] as the cause of diseases classified elsewhere; Z68.31 Body mass index [BMI] 31.0-31.9, adult; Z90.49 Acquired absence of other specified parts of digestive tract; Z79.82 Long term (current) use of aspirin; Z87.440 Personal history of urinary (tract) infections
CPT/HCPCS: 36415; 71045; 74176; 80053; 81001; 82274; 83605; 83735; 84484; 85025; 85055; 85610; 85730; 87040; 87086; 87186; 87637; 93005; 96361; 96365; 99285; A9270; J0692; J0696; J7120

== ENCOUNTER 2025-01-06 16:33 | Outpatient (CLI) | payer MEDICARE, SELFPAY ==
[2025-01-07 12:38] LABS: Add Urine Microscopic? NO; Appearance Urine Clear (Clear); Glucose Urine UA Negative (Negative); Leukocyte Esterase Ur Negative LEU/UL (Negative); Nitrate Urine Negative (Negative); Specific Grav Ur 1.006 (1.001-1.035)
== END 2025-01-06 16:34 | disposition home or self-care (01) ==
LOC: ANHLAB 16:34
PROVIDERS: PCP Family Medicine; Visit Provider Physician Assistant Medical
DX: R30.0 Dysuria (principal)
CPT/HCPCS: 81003; 87086

== ENCOUNTER 2025-01-16 14:10 | Outpatient (CLI) | payer MEDICARE, SELFPAY ==
[2025-01-16 15:18] LABS: Influenza A QL RT-PCR Negative (Negative); Influenza B QL RT-PCR Negative (Negative); SARS-CoV-2 RNA PCR Positive (Negative)
== END 2025-01-16 14:11 | disposition home or self-care (01) ==
LOC: ANHLAB 14:10
PROVIDERS: PCP Family Medicine
DX: J02.9 Acute pharyngitis, unspecified (principal); R51.9 Headache, unspecified; Z20.822 Contact with and (suspected) exposure to COVID-19
CPT/HCPCS: 87636